=== PATIENT | female | born 1945 | race Caucasian/White ===

== ENCOUNTER 2016-09-08 09:28 | Emergency (ER) | payer MEDICARE, MEDICAID ==
[~2016-09-08 09:28] MED LIST: /PANT40TA; /PANT40TA OR; ALBU17IN2; ALBU17IN2 IN; ASPI325T OR; ASPI81TA83 OR; Albuterol Sulfate INH; CELE10TA OR; CIPR500T4; DEPA500T OR; FERR325T OR; FLAG500T; FLUC10TA OR; LABE100T2; LABE100T2 PO; LACT10SO8; LEVA250T; LEVA500T; LEVO25TABR; LISI10TA4 PO; Levothyroxine PO; MAALSUS PO; METO10TA2; MYCOSTATIN SS; NITROGLYCERIN SL; NITROSPRAY; NYSTATIN ORAL PO; OMEP20TA7 OR; OMEP20TA7 PO; POTASSIUM PO; PRIL20CA; PRIL40CA PO; QUESTRAN PO; SENN8.6T14; SIMV40TA2 PO; TEGR200T OR; TRAN100T OR; VICO5TAB; VICO5TAB OR; VICO5TAB PO; VITA50TA12 OR; ZANTAC; ZOCO40TA; nitroglycerin SL
[2016-09-08 10:17] LABS: BASO % 0.2 % (0.0-1.0); EOS # 0.2 K/mm3 (0.0-0.50); EOS % 3.8 % (0.0-3.0); LARGE UNSTAINED CELL # 0.1 K/mm3 (0.0-0.4); LARGE UNSTAINED CELL % 1.3 % (0.0-4.0); LYMPH # 0.5 K/mm3 (1.5-4.5); LYMPH % 11.9 % (24.0-44.0); MEAN CORPUSCULAR HEMOGLOBIN 32.5 pg (27.0-33.0); MEAN CORPUSCULAR HGB CONC 34.3 g/dl (32.0-36.5); MEAN CORPUSCULAR VOLUME 94.7 fl (80.0-96.0); MONO # 0.3 K/mm3 (0.0-0.8); MONO % 5.9 % (0.0-5.0); NEUTROPHILS # 3.2 K/mm3 (1.8-7.7); NEUTROPHILS % 76.9 % (36.0-66.0); PLATELET COUNT, AUTOMATED 205 k/mm3 (150-450); WHITE BLOOD COUNT 4.2 K/mm3 (4.0-10.0)
[2016-09-08 10:48] LABS: ANION GAP 10 MEQ/L (8-16); BLOOD UREA NITROGEN 7 MG/DL (7-18); CALCIUM LEVEL 8.2 MG/DL (8.8-10.2); CARBON DIOXIDE LEVEL 28 MEQ/L (21-32); CHLORIDE LEVEL 102 MEQ/L (98-107); CREATININE FOR GFR 0.95 MG/DL (0.55-1.02); GLOMERULAR FILTRATION RATE > 60.0 (>39); GLUCOSE, FASTING 107 MG/DL (83-110); POTASSIUM SERUM 3.5 MEQ/L (3.5-5.1); SODIUM LEVEL 140 MEQ/L (136-145)
--- NOTE | 2016-09-08 10:51 | REP ---
Chest two views HISTORY: Cough Comparison: 01/21/2015 The lungs are clear. The heart is normal in size. The pulmonary vasculature is normal in appearance. The bony structure is intact. IMPRESSION: No acute disease. Signed by Jose Antonio Carmona MD 09/08/2016 10:43 A
--- NOTE | 2016-09-08 15:13 | EDDOCDS ---
Physician Documentation [facility] Name: Codi Mcdermott Age: 71 yrs Sex: Female : 1945 Arrival Date: 09/08/2016 Time: 09:28 Bed 10 Private MD: Disposition: 09/08/16 13:53 Discharged to Home/Self Care. Impression: Chronic obstructive pulmonary disease with acute lower respiratory infection. - Condition is Stable. - Discharge Instructions: Acute Bronchitis, Chronic Obstructive Pulmonary Disease. - Prescriptions for Ceftin 500 mg Oral Tablet - take 1 tablet by ORAL route every 12 hours for 10 days; 20 tablet. Albuterol Sulfate 90 mcg/actuation Inhalation HFA Aerosol Inhaler - inhale 2 puff by INHALATION route every 4 hours As needed; 1 Inhaler. - Medication Reconciliation, Local Pharmacy Hours form. - Follow up: Private Physician; When: Cass Traore. - Problem is an acute exacerbation. - Symptoms have improved. Historical: - Allergies: Vioxx; IODINEIODINE CONTAINING; Lyrica; flu vaccine; Plaquenil; - Home Meds: 1. Keppra 500 mg Oral tab 1 tab 2 times per day 2. lisinopril 10 mg Oral tab 1 tab once daily 3. labetalol 100 mg Oral tab 0.5 tab 2 times per day 4. pantoprazole 40 mg oral TbEC 1 tab once daily 5. levothyroxine 25 mcg Oral tab 1 tab once daily 6. oxycodone-acetaminophen 5-325 mg Oral tab 1 tab every 4 hours for Pain 7. atorvastatin 40 mg oral tab 1 tab once daily 8. Lomotil 2.5-0.025 mg oral tab 2 tabs once daily PRN 9. albuterol sulfate 90 mcg/actuation Inhl HFAA PRN 10. Restasis 0.05 % ophthalmic dpet 1 drop 2 times per day 11. Nitrolingual 400 mcg/spray TL spra PRN - PMHx: sjogren's syndrome; Anemia; Arthritis; CAD; CancerCervical and Colon; Chronic kidney disease; Depression; GERD; hyperlipidemia; Hypothyroidism; [place]; Osteoporosis; Rheumatoid Arthritis; Sciatica; Seizures; - PSHx: Tonsillectomy; Bunion Surgery; Throat Surgery; Right Knee Surgery; Hysterectomy; Appendectomy; Kidney Surgery; - Social history: No barriers to communication noted, The patient speaks fluent Tajik, Speaks appropriately for age, Smoking status: Patient states was never smoker of tobacco. - Family history: Not pertinent. - : The pt / caregiver states he / she is not on anticoagulants. Home medication list is obtained from the patient, [employer] import data. - Exposure Risk Screening:: None identified. Vital Signs: 09/08 09:41 BP 124 / 74 (auto/); ck1 09:42 BP 124 / 74; Pulse 99; Resp 18; Temp 98.7(O); Pulse Ox 94% on R/A; Weight 59.87 kg / ck1 131.99 lbs (R); Height 5 ft. 4 in. (162.56 cm) (R); Pain 7/10; 09:42 Pulse 100 MON; Pulse Ox 93% ; ck1 09:57 BP 123 / 71 (auto/); ck1 09:57 Pulse 88 MON; Pulse Ox 97% ; ck1 10:11 Pulse 80 MON; Pulse Ox 99% ; ck1 10:12 BP 119 / 64 (auto/); ck1 10:27 BP 116 / 69 (auto/); ck1 10:27 Pulse 72 MON; Pulse Ox 100% ; ck1 10:39 Pulse 70 MON; Pulse Ox 99% ; rs3 10:57 BP 148 / 67 (auto/); ms18 10:57 Pulse 70 MON; Pulse Ox 99% ; ms18 11:12 BP 138 / 61 (auto/); ms18 11:12 Pulse 72 MON; Pulse Ox 98% ; ms18 11:27 BP 138 / 64 (auto/); ms18 11:27 Pulse 68 MON; Pulse Ox 98% ; ms18 11:42 BP 134 / 61 (auto/); ms18 11:42 Pulse 70 MON; Pulse Ox 97% ; ms18 11:57 BP 138 / 67 (auto/); ms18 11:57 Pulse 70 MON; Pulse Ox 97% ; ms18 12:12 BP 131 / 65 (auto/); ms18 12:12 Pulse 74 MON; Pulse Ox 98% ; ms18 12:27 BP 140 / 67 (auto/); ms18 12:27 Pulse 72 MON; Resp 18; Pulse Ox 98% ; ms18 12:42 BP 124 / 64 (auto/); rs3 12:42 Pulse 74 MON; Pulse Ox 98% ; rs3 12:57 BP 164 / 72 (auto/); rs3 12:57 Pulse 78 MON; Pulse Ox 94% ; rs3 13:12 BP 163 / 87 (auto/); rs3 13:12 Pulse 94 MON; Pulse Ox 96% ; rs3 13:27 BP 131 / 59 (auto/); rs3 13:27 Pulse 74 MON; Pulse Ox 95% ; rs3 13:42 Pulse 76 MON; Pulse Ox 95% ; rs3 13:57 BP 215 / 99 (auto/); rs3 14:23 BP 140 / 89 (auto/); rs3 14:23 Pulse 86 MON; Pulse Ox 94% ; rs3 14:27 BP 154 / 74 (auto/); rs3 14:27 Pulse 74 MON; Pulse Ox 97% ; rs3 14:42 BP 186 / 78 (auto/); rs3 14:42 Pulse 46 MON; Pulse Ox 95% ; rs3 14:57 BP 173 / 84 (auto/); rs3 14:57 BP 173 / 84; Pulse 82 MON; Resp 18; Temp 98(T); Pulse Ox 96% on R/A; Pain 0/10; rs3 09:42 Body Mass Index 22.66 (59.87 kg, 162.56 cm) ck1 MDM: 09:39 -Blood Culture (Adults Only), peripheral from different site, or from device/port/PICC sd1 etc. if present ordered. 09:39 Resource Conservation Manager/Pulse Ox/q 15 min VS ordered. sd1 09:39 IV Saline Lock ordered. sd1 09:39 Oxygen at 4L/Min NC or Home dosage ordered. sd1 09:39 Rhythm Strip to chart ordered. sd1 09:39 B-Type Natiuretic Peptide Ordered. EDMS 09:39 Basic Metabolic Profile Ordered. EDMS 09:39 CBC with Diff Ordered. EDMS 09:39 Cardiac Injury Profile Ordered. EDMS 09:39 Troponin Ordered. EDMS 09:39 -Blood Culture Ordered. EDMS 09:40 Chest, 2 View (pa\E\lat) Ordered. EDMS 09:40 ECG WITH READING ER PHYS+CARDIAG ordered. EDMS 09:40 Lactic Acid (Nicole tube on ice) Ordered. EDMS 09:41 NS 0.9% 1000 ml IV at 150 mL/hr continuous ordered. sd1 09:41 -Blood Culture (Adults Only), peripheral from different site, or from device/port/PICC deg etc. if present complete. 09:43 BLOOD CULTURES Ordered. EDMS 10:59 Financial registration complete. lg 12:09 Basic Metabolic Profile Reviewed. sd1 12:09 CBC with Diff Reviewed. sd1 12:09 B-Type Natiuretic Peptide Reviewed. sd1 12:09 Cardiac Injury Profile Reviewed. sd1 12:09 Troponin Reviewed. sd1 12:09 Lactic Acid (Nicole tube on ice) Reviewed. sd1 12:09 Chest, 2 View (pa\E\lat) Reviewed. sd1 12:49 Misc. Nursing Order ordered. sd1 12:49 REGULAR+DIET ordered. EDMS 15:11 T-Sheet-- Draft Copy was scanned into [employer] and attached to record. gb 15:11 ECG/EKG was scanned into [employer] and attached to record. gb Administered Medications: 10:11 Drug: NS 0.9% 1000 ml [sodium chloride 0.9 % intravenous solution] Route: IV; Rate: 150 ck1 mL/hr; Site: right antecubital; Signatures: Dispatcher [employer] EDNC Nahomy Swanson MD MD sd1 Yanira Dela Cruz, Electric Switch Repairer Unit deg Imelda Oviedo, Reg Reg gb Nitin Lang, Reg Reg Patricia Pool,RN RN ck1 Denice Velarde,RN RN rs3 The chart was reviewed and I authenticate all verbal orders and agree with the evaluation and treatment provided.Corrections: (The following items were deleted from the chart) 09:43 09:40 Home Meds: prednisone 5 mg Oral tab once daily; ck1 ck1 Attachments: 15:11 T-Sheet-- Draft Copy gb 15:11 ECG/EKG gb MTDD
--- NOTE | 2016-09-08 15:13 | EDDOCDS ---
Nurse's Notes [facility] Name: Codi Mcdermott Age: 71 yrs Sex: Female : 1945 Arrival Date: 09/08/2016 Time: 09:28 Bed 10 Private MD: Diagnosis: Chronic obstructive pulmonary disease with acute lower respiratory infection Presentation: 09/08 09:33 Presenting complaint: EMS states: Hot/cold, weakness ongoing for one week. No acute ck1 neurological deficit is noted. Pre-hospital glucose is not applicable to this patient. Suicide/Homicide risk assessment- the patient denies having any suicidal and/or homicidal ideations and does not present with any other emotional, behavioral or mental health complaints. Status: Patient is not a client sales and service officer or dependent. Transition of care: patient was not received from another setting of care. 09:33 Method Of Arrival: Ambulance ck1 09:33 Acuity: HERIBERTO Level 3 ck1 09:44 The last date and time the patient was known to be well was was at an unknown time on ck1 an unknown date. Adult Sepsis Screening: The patient does not have new or worsening altered mentation. Patient's respiratory rate is less than 22. Systolic blood pressure is greater than 100. Patient has a qSOFA score of 0- Negative Sepsis Screen. Triage Assessment: 09:43 The onset of the patients symptoms was more than three hours ago. General: Appears in ck1 no apparent distress, comfortable, Behavior is appropriate for age, cooperative. Pain: Location: throat Pain currently is 7 out of 10 on a pain scale. Neurological: Level of Consciousness is awake, alert, obeys commands, Oriented to person, place, time, Reports weakness. Cardiovascular: Chest pain is denied. Respiratory: Respiratory effort is unlabored, Respiratory pattern is regular, symmetrical. GI: No deficits noted. Derm: Skin is intact, is healthy with good turgor, Skin is pink, warm & dry. Musculoskeletal: Circulation, motion, and sensation intact Range of motion intact in all extremities. Historical: - Allergies: Vioxx; IODINEIODINE CONTAINING; Lyrica; flu vaccine; Plaquenil; - Home Meds: 1. Keppra 500 mg Oral tab 1 tab 2 times per day 2. lisinopril 10 mg Oral tab 1 tab once daily 3. labetalol 100 mg Oral tab 0.5 tab 2 times per day 4. pantoprazole 40 mg oral TbEC 1 tab once daily 5. levothyroxine 25 mcg Oral tab 1 tab once daily 6. oxycodone-acetaminophen 5-325 mg Oral tab 1 tab every 4 hours for Pain 7. atorvastatin 40 mg oral tab 1 tab once daily 8. Lomotil 2.5-0.025 mg oral tab 2 tabs once daily PRN 9. albuterol sulfate 90 mcg/actuation Inhl HFAA PRN 10. Restasis 0.05 % ophthalmic dpet 1 drop 2 times per day 11. Nitrolingual 400 mcg/spray TL spra PRN - PMHx: sjogren's syndrome; Anemia; Arthritis; CAD; CancerCervical and Colon; Chronic kidney disease; Depression; GERD; hyperlipidemia; Hypothyroidism; [place]; Osteoporosis; Rheumatoid Arthritis; Sciatica; Seizures; - PSHx: Tonsillectomy; Bunion Surgery; Throat Surgery; Right Knee Surgery; Hysterectomy; Appendectomy; Kidney Surgery; - Social history: No barriers to communication noted, The patient speaks fluent Moh[place], Speaks appropriately for age, Smoking status: Patient states was never smoker of tobacco. - Family history: Not pertinent. - : The pt / caregiver states he / she is not on anticoagulants. Home medication list is obtained from the patient, [employer] import data. - Exposure Risk Screening:: None identified. Screenin:43 Screening information is obtained from the patient. Fall risk: At risk due to weakness. ck1 Assistance ADL's: Requires assistance with housework, assistance is provided by Home Health Aides. Abuse/DV Screen: The patient / caregiver reports he/she is: not in a situation that causes fear, pain or injury. Nutritional screening: No deficits noted. Advance Directives: Currently, there is no health care proxy. home support is adequate. Assessment: 09:44 General: see triage note. ck1 11:15 General: Pt in no acute distress, lying on stretcher resting at this time. Will ms18 continue to monitor pt. 12:16 General: Appears in no apparent distress, comfortable, Behavior is appropriate for age, ms18 cooperative. Neurological: Level of Consciousness is awake, alert, obeys commands, Oriented to person, place, time. Respiratory: Airway is patent Respiratory effort is even, unlabored. GI: Abdomen is non- distended. Derm: Skin is pink, warm & dry. Pt c/o that her "skin" feels like it is "burning up", asked if she wanted to remove her blanket, pt refused and stated then she gets too cold. 13:35 General: Appears in no apparent distress, comfortable, Behavior is appropriate for age, ms18 cooperative. Neurological: Level of Consciousness is awake, alert, obeys commands, Oriented to person, place, time. Respiratory: Airway is patent Respiratory effort is even, unlabored. Derm: Skin is pink, warm & dry. 14:45 General: Appears in no apparent distress, comfortable, Behavior is appropriate for age, ms18 cooperative, Pt ambulated with no distress. Will continue to monitor pt. Respiratory: Airway is patent Respiratory effort is even, unlabored. Derm: Skin is pink, warm & dry. normal. Vital Signs: 09:41 BP 124 / 74 (auto/); ck1 09:42 BP 124 / 74; Pulse 99; Resp 18; Temp 98.7(O); Pulse Ox 94% on R/A; Weight 59.87 kg (R); ck1 Height 5 ft. 4 in. (162.56 cm) (R); Pain 7/10; 09:42 Pulse 100 MON; Pulse Ox 93% ; ck1 09:57 BP 123 / 71 (auto/); ck1 09:57 Pulse 88 MON; Pulse Ox 97% ; ck1 10:11 Pulse 80 MON; Pulse Ox 99% ; ck1 10:12 BP 119 / 64 (auto/); ck1 10:27 BP 116 / 69 (auto/); ck1 10:27 Pulse 72 MON; Pulse Ox 100% ; ck1 10:39 Pulse 70 MON; Pulse Ox 99% ; rs3 10:57 BP 148 / 67 (auto/); ms18 10:57 Pulse 70 MON; Pulse Ox 99% ; ms18 11:12 BP 138 / 61 (auto/); ms18 11:12 Pulse 72 MON; Pulse Ox 98% ; ms18 11:27 BP 138 / 64 (auto/); ms18 11:27 Pulse 68 MON; Pulse Ox 98% ; ms18 11:42 BP 134 / 61 (auto/); ms18 11:42 Pulse 70 MON; Pulse Ox 97% ; ms18 11:57 BP 138 / 67 (auto/); ms18 11:57 Pulse 70 MON; Pulse Ox 97% ; ms18 12:12 BP 131 / 65 (auto/); ms18 12:12 Pulse 74 MON; Pulse Ox 98% ; ms18 12:27 BP 140 / 67 (auto/); ms18 12:27 Pulse 72 MON; Resp 18; Pulse Ox 98% ; ms18 12:42 BP 124 / 64 (auto/); rs3 12:42 Pulse 74 MON; Pulse Ox 98% ; rs3 12:57 BP 164 / 72 (auto/); rs3 12:57 Pulse 78 MON; Pulse Ox 94% ; rs3 13:12 BP 163 / 87 (auto/); rs3 13:12 Pulse 94 MON; Pulse Ox 96% ; rs3 13:27 BP 131 / 59 (auto/); rs3 13:27 Pulse 74 MON; Pulse Ox 95% ; rs3 13:42 Pulse 76 MON; Pulse Ox 95% ; rs3 13:57 BP 215 / 99 (auto/); rs3 14:23 BP 140 / 89 (auto/); rs3 14:23 Pulse 86 MON; Pulse Ox 94% ; rs3 14:27 BP 154 / 74 (auto/); rs3 14:27 Pulse 74 MON; Pulse Ox 97% ; rs3 14:42 BP 186 / 78 (auto/); rs3 14:42 Pulse 46 MON; Pulse Ox 95% ; rs3 14:57 BP 173 / 84 (auto/); rs3 14:57 BP 173 / 84; Pulse 82 MON; Resp 18; Temp 98(T); Pulse Ox 96% on R/A; Pain 0/10; rs3 09:42 Body Mass Index 22.66 (59.87 kg, 162.56 cm) ck1 Vitals: 09:42 Glucose Measurement D-stick deferred by provider. Log In Time N/A - ambulance arrival. ck1 ED Course: 09:29 Patient visited by Yanira Dela Cruz, Brake Repairer Air. deg 09:29 Patient moved to Waiting deg 09:30 Estella Cruz,RN is Primary Nurse. deg 09:30 Patricia Gee,ILEANA is Primary Nurse. deg 09:30 Patient moved to 10 deg 09:33 Nahomy Swanson MD is Attending Physician. sd1 09:33 Patient visited by Nahomy Swanson MD. sd1 09:36 Triage Initiated ck1 09:44 The patient / caregiver is instructed regarding the plan of care and ED course. ck1 10:07 EKG done. (by ED staff). Reviewed by Nahomy Swanson MD. rn1 10:11 Patient visited by Patricia Gee,ILEANA. ck1 10:11 Lactic Acid (Nicole tube on ice) Sent. ck1 10:11 -Blood Culture Sent. ck1 10:11 B-Type Natiuretic Peptide Sent. ck1 10:11 Basic Metabolic Profile Sent. ck1 10:11 CBC with Diff Sent. ck1 10:11 Cardiac Injury Profile Sent. ck1 10:11 Troponin Sent. ck1 10:12 Inserted saline lock: 20 gauge in right antecubital area and blood collected. The ck1 patient tolerated the procedure well. 10:18 Patient visited by Patricia Gee RN. ck1 10:18 BLOOD CULTURES Sent. ck1 10:52 Patient visited by Patricia Gee RN. ck1 11:19 Chest, 2 View (pa\\E\\lat) Returned. EDMS 11:30 Patient visited by Luis Underwood PCA. jlf 12:16 Patient visited by Isabel Cruz RN. ms18 13:18 Patient visited by Isabel Cruz RN. ms18 15:11 T-Sheet-- Draft Copy was scanned into [employer] and attached to record. gb 15:11 ECG/EKG was scanned into [employer] and attached to record. gb 15:12 No procedures done that require assistance. rs3 Administered Medications: 10:11 Drug: NS 0.9% 1000 ml [sodium chloride 0.9 % intravenous solution] Route: IV; Rate: 150 ck1 mL/hr; Site: right antecubital; Order Results: Lab Order: B-Type Natiuretic Peptide; SPEC'M 09/08/16 10:09 Test: BRAIN NATRIURETIC PEPTIDE; Value: 21.7; Range: <100; Units: PG/ML; Status: F Lab Order: Basic Metabolic Profile; SPEC'M 09/08/16 10:09 Test: GLUCOSE, FASTING; Value: 107; Range: 83-110; Units: MG/DL; Status: F Test: BLOOD UREA NITROGEN; Value: 7; Range: 7-18; Units: MG/DL; Status: F Test: CREATININE FOR GFR; Value: 0.95; Range: 0.55-1.02; Units: MG/DL; Status: F Test: GLOMERULAR FILTRATION RATE; Value: > 60.0; Range: >39; Status: F Test: SODIUM LEVEL; Value: 140; Range: 136-145; Units: MEQ/L; Status: F Test: POTASSIUM SERUM; Value: 3.5; Range: 3.5-5.1; Units: MEQ/L; Status: F Test: CHLORIDE LEVEL; Value: 102; Range: 98-107; Units: MEQ/L; Status: F Test: CARBON DIOXIDE LEVEL; Value: 28; Range: 21-32; Units: MEQ/L; Status: F Test: ANION GAP; Value: 10; Range: 8-16; Units: MEQ/L; Status: F Test: CALCIUM LEVEL; Value: 8.2; Range: 8.8-10.2; Abnormal: Below low normal; Units: MG/DL; Status: F Test Note: ; Units are mL/min/1.73 m2 Chronic Kidney Disease Staging per NKF: Stage I & II GFR >=60 Normal to Mildly Decreased Stage III GFR 30-59 Moderately Decreased Stage IV GFR 15-29 Severely Decreased Stage V GFR <15 Very Little GFR Left ESRD GFR <15 on GAMEWELL OPERATOR Lab Order: CBC with Diff; SPEC'M 09/08/16 10:09 Test: WHITE BLOOD COUNT; Value: 4.2; Range: 4.0-10.0; Units: K/mm3; Status: F Test: RED BLOOD COUNT; Value: 3.53; Range: 4.00-5.40; Abnormal: Below low normal; Units: M/mm3; Status: F Test: HEMOGLOBIN; Value: 11.5; Range: 12.0-16.0; Abnormal: Below low normal; Units: g/dl; Status: F Test: HEMATOCRIT; Value: 33.5; Range: 36.0-47.0; Abnormal: Below low normal; Units: %; Status: F Test: MEAN CORPUSCULAR VOLUME; Value: 94.7; Range: 80.0-96.0; Units: fl; Status: F Test: MEAN CORPUSCULAR HEMOGLOBIN; Value: 32.5; Range: 27.0-33.0; Units: pg; Status: F Test: MEAN CORPUSCULAR HGB CONC; Value: 34.3; Range: 32.0-36.5; Units: g/dl; Status: F Test: RED CELL DISTRIBUTION WIDTH; Value: 12.0; Range: 11.5-14.5; Units: %; Status: F Test: PLATELET COUNT, AUTOMATED; Value: 205; Range: 150-450; Units: k/mm3; Status: F Test: NEUTROPHILS %; Value: 76.9; Range: 36.0-66.0; Abnormal: Above high normal; Units: %; Status: F Test: LYMPH %; Value: 11.9; Range: 24.0-44.0; Abnormal: Below low normal; Units: %; Status: F Test: MONO %; Value: 5.9; Range: 0.0-5.0; Abnormal: Above high normal; Units: %; Status: F Test: EOS %; Value: 3.8; Range: 0.0-3.0; Abnormal: Above high normal; Units: %; Status: F Test: BASO %; Value: 0.2; Range: 0.0-1.0; Units: %; Status: F Test: LARGE UNSTAINED CELL %; Value: 1.3; Range: 0.0-4.0; Units: %; Status: F Test: NEUTROPHILS #; Value: 3.2; Range: 1.8-7.7; Units: K/mm3; Status: F Test: LYMPH #; Value: 0.5; Range: 1.5-4.5; Abnormal: Below low normal; Units: K/mm3; Status: F Test: MONO #; Value: 0.3; Range: 0.0-0.8; Units: K/mm3; Status: F Test: EOS #; Value: 0.2; Range: 0.0-0.50; Units: K/mm3; Status: F Test: BASO #; Value: 0.0; Range: 0.0-0.2; Units: K/mm3; Status: F Test: LARGE UNSTAINED CELL #; Value: 0.1; Range: 0.0-0.4; Units: K/mm3; Status: F Lab Order: Cardiac Injury Profile; SPEC'M 09/08/16 10:09 Test: CPK CREATINE PHOSPHOKINASE; Value: 96; Range: 26-192; Units: U/L; Status: F Test: CK-MB VALUE MASS; Value: 2.2; Range: 0.0-3.6; Units: NG/ML; Status: F Test: MB/CK RELATIVE INDEX; Value: 2.29; Range: < OR =4; Status: F Test Note: ; DIAGNOSIS CRITERIA MMB ng/ml Relative Index (RI) NON-AMI < or = 5 N/A NICOLE ZONE > 5 < or = 4 AMI > 5 > 4 Lab Order: Troponin; SPEC'M 09/08/16 10:09 Test: TROPONIN I; Value: < 0.02; Range: < 0.10; Units: NG/ML; Status: F Test Note: ; Troponin I Reference Interval for Phloronol LOCI: 99th Percentile= 0.00-0.045 ng/ml Risk Stratification: <= 0.10 ng/ml Decreased Risk for Adverse Clinical Events. 0.10-1.50 ng/ml Increased Risk for Adverse Clinical Events. Evaluation of additional criterion and/or repeat testing in 2-6 hours is suggested to rule out myocardial damage. >= 1.50 ng/ml Indicative of Myocardial Injury. Lab Order: Lactic Acid (Nicole tube on ice); SPEC'M 09/08/16 10:09 Test: LACTIC ACID LEVEL, LACTATE; Value: 1.0; Range: 0.4-2.0; Units: MMOL/L; Status: F Radiology Order: Chest, 2 View (pa\\E\\lat) Test: Chest, 2 View (pa\\E\\lat) REASON FOR EXAMINATION: productive cough; Chest two views; ; HISTORY: Cough; ; Comparison: 01/21/2015; ; The lungs are clear. The heart is normal in size. The pulmonary vasculature is; normal in appearance. The bony structure is intact.; ; IMPRESSION: No acute disease.; ; ; Signed by; Jose Antonio Carmona MD 09/08/2016 10:43 A; Outcome: 13:53 Discharge ordered by Provider. sd1 15:11 Discharge Assessment: patient administered narcotics - no. The following High Risk rs3 Discharge criteria are identified: None. Discharged to home with family. Condition: stable. Discharge instructions given to patient, Instructed on discharge instructions, follow up and referral plans. medication usage, Demonstrated understanding of instructions, medications, Pt was receptive of discharge instructions/ teaching. No special radiology studies were completed. Property :Personal belongings accompany Pt. 15:12 Patient left the ED. rs3 Signatures: Dispatcher [employer] EDMS Nahomy Swanson MD MD sd1 Yanira Dela Cruz, Brake Repairer Air Unit deg Imelda Oviedo, Reg Reg gb Patricia Gee,RN RN ck1 Denice VelardeRN RN rs3 Luis Underwood, BASIM PRODUCTION SORTER Isabel Phelan RN RN ms18 Rich Maradiaga rn1 Corrections: (The following items were deleted from the chart) 09:43 09:40 Home Meds: prednisone 5 mg Oral tab once daily; ck1 ck1 MTDD
--- NOTE | 2016-09-08 21:11 | ECGEPIP ---
Stationary ECG Study [facility] - ED Test Date: 2016-09-08 Pat Name: AYAKA LUCIO Department: Room: - Gender: F [employer] Room Attendant: sheldon : 1945 Requested By: Nahomy Swanson Order Number: [id number] Reading MD: Ryan Mann Measurements Intervals [place] Rate: 74 P: 68 MT: 136 QRS: 32 QRSD: 88 T: 79 QT: 379 QTc: 422 Interpretive Statements SINUS RHYTHM [id number] ABNORMALITIES Electronically Signed On 09-08-2016 21:10:57 EST by Ryan Mann
--- NOTE | 2016-09-10 16:13 | EDDOCDS ---
Physician Documentation [facility] Name: Codi Mcdermott Age: 71 yrs Sex: Female : 1945 Arrival Date: 09/08/2016 Time: 09:28 Bed 10 Private MD: Disposition: 09/08/16 13:53 Discharged to Home/Self Care. Impression: Chronic obstructive pulmonary disease with acute lower respiratory infection. - Condition is Stable. - Discharge Instructions: Acute Bronchitis, Chronic Obstructive Pulmonary Disease. - Prescriptions for Ceftin 500 mg Oral Tablet - take 1 tablet by ORAL route every 12 hours for 10 days; 20 tablet. Albuterol Sulfate 90 mcg/actuation Inhalation HFA Aerosol Inhaler - inhale 2 puff by INHALATION route every 4 hours As needed; 1 Inhaler. - Medication Reconciliation, Local Pharmacy Hours form. - Follow up: Private Physician; When: Cass Traore. - Problem is an acute exacerbation. - Symptoms have improved. Historical: - Allergies: Vioxx; IODINEIODINE CONTAINING; Lyrica; flu vaccine; Plaquenil; - Home Meds: 1. Keppra 500 mg Oral tab 1 tab 2 times per day 2. lisinopril 10 mg Oral tab 1 tab once daily 3. labetalol 100 mg Oral tab 0.5 tab 2 times per day 4. pantoprazole 40 mg oral TbEC 1 tab once daily 5. levothyroxine 25 mcg Oral tab 1 tab once daily 6. oxycodone-acetaminophen 5-325 mg Oral tab 1 tab every 4 hours for Pain 7. atorvastatin 40 mg oral tab 1 tab once daily 8. Lomotil 2.5-0.025 mg oral tab 2 tabs once daily PRN 9. albuterol sulfate 90 mcg/actuation Inhl HFAA PRN 10. Restasis 0.05 % ophthalmic dpet 1 drop 2 times per day 11. Nitrolingual 400 mcg/spray TL spra PRN - PMHx: sjogren's syndrome; Anemia; Arthritis; CAD; CancerCervical and Colon; Chronic kidney disease; Depression; GERD; hyperlipidemia; Hypothyroidism; RI; Osteoporosis; Rheumatoid Arthritis; Sciatica; Seizures; - PSHx: Tonsillectomy; Bunion Surgery; Throat Surgery; Right Knee Surgery; Hysterectomy; Appendectomy; Kidney Surgery; - Social history: No barriers to communication noted, The patient speaks fluent Estonian, Speaks appropriately for age, Smoking status: Patient states was never smoker of tobacco. - Family history: Not pertinent. - : The pt / caregiver states he / she is not on anticoagulants. Home medication list is obtained from the patient, [employer] import data. - Exposure Risk Screening:: None identified. Vital Signs: 09/08 09:41 BP 124 / 74 (auto/); ck1 09:42 BP 124 / 74; Pulse 99; Resp 18; Temp 98.7(O); Pulse Ox 94% on R/A; Weight 59.87 kg / ck1 131.99 lbs (R); Height 5 ft. 4 in. (162.56 cm) (R); Pain 7/10; 09:42 Pulse 100 MON; Pulse Ox 93% ; ck1 09:57 BP 123 / 71 (auto/); ck1 09:57 Pulse 88 MON; Pulse Ox 97% ; ck1 10:11 Pulse 80 MON; Pulse Ox 99% ; ck1 10:12 BP 119 / 64 (auto/); ck1 10:27 BP 116 / 69 (auto/); ck1 10:27 Pulse 72 MON; Pulse Ox 100% ; ck1 10:39 Pulse 70 MON; Pulse Ox 99% ; rs3 10:57 BP 148 / 67 (auto/); ms18 10:57 Pulse 70 MON; Pulse Ox 99% ; ms18 11:12 BP 138 / 61 (auto/); ms18 11:12 Pulse 72 MON; Pulse Ox 98% ; ms18 11:27 BP 138 / 64 (auto/); ms18 11:27 Pulse 68 MON; Pulse Ox 98% ; ms18 11:42 BP 134 / 61 (auto/); ms18 11:42 Pulse 70 MON; Pulse Ox 97% ; ms18 11:57 BP 138 / 67 (auto/); ms18 11:57 Pulse 70 MON; Pulse Ox 97% ; ms18 12:12 BP 131 / 65 (auto/); ms18 12:12 Pulse 74 MON; Pulse Ox 98% ; ms18 12:27 BP 140 / 67 (auto/); ms18 12:27 Pulse 72 MON; Resp 18; Pulse Ox 98% ; ms18 12:42 BP 124 / 64 (auto/); rs3 12:42 Pulse 74 MON; Pulse Ox 98% ; rs3 12:57 BP 164 / 72 (auto/); rs3 12:57 Pulse 78 MON; Pulse Ox 94% ; rs3 13:12 BP 163 / 87 (auto/); rs3 13:12 Pulse 94 MON; Pulse Ox 96% ; rs3 13:27 BP 131 / 59 (auto/); rs3 13:27 Pulse 74 MON; Pulse Ox 95% ; rs3 13:42 Pulse 76 MON; Pulse Ox 95% ; rs3 13:57 BP 215 / 99 (auto/); rs3 14:23 BP 140 / 89 (auto/); rs3 14:23 Pulse 86 MON; Pulse Ox 94% ; rs3 14:27 BP 154 / 74 (auto/); rs3 14:27 Pulse 74 MON; Pulse Ox 97% ; rs3 14:42 BP 186 / 78 (auto/); rs3 14:42 Pulse 46 MON; Pulse Ox 95% ; rs3 14:57 BP 173 / 84 (auto/); rs3 14:57 BP 173 / 84; Pulse 82 MON; Resp 18; Temp 98(T); Pulse Ox 96% on R/A; Pain 0/10; rs3 09:42 Body Mass Index 22.66 (59.87 kg, 162.56 cm) ck1 MDM: 09:39 -Blood Culture (Adults Only), peripheral from different site, or from device/port/PICC sd1 etc. if present ordered. 09:39 Parts Administrator/Pulse Ox/q 15 min VS ordered. sd1 09:39 IV Saline Lock ordered. sd1 09:39 Oxygen at 4L/Min NC or Home dosage ordered. sd1 09:39 Rhythm Strip to chart ordered. sd1 09:39 B-Type Natiuretic Peptide Ordered. EDMS 09:39 Basic Metabolic Profile Ordered. EDMS 09:39 CBC with Diff Ordered. EDMS 09:39 Cardiac Injury Profile Ordered. EDMS 09:39 Troponin Ordered. EDMS 09:39 -Blood Culture Ordered. EDMS 09:40 Chest, 2 View (pa\E\lat) Ordered. EDMS 09:40 ECG WITH READING ER PHYS+CARDIAG ordered. EDMS 09:40 Lactic Acid (Nicole tube on ice) Ordered. EDMS 09:41 NS 0.9% 1000 ml IV at 150 mL/hr continuous ordered. sd1 09:41 -Blood Culture (Adults Only), peripheral from different site, or from device/port/PICC deg etc. if present complete. 09:43 BLOOD CULTURES Ordered. EDMS 10:59 Financial registration complete. lg 12:09 Basic Metabolic Profile Reviewed. sd1 12:09 CBC with Diff Reviewed. sd1 12:09 B-Type Natiuretic Peptide Reviewed. sd1 12:09 Cardiac Injury Profile Reviewed. sd1 12:09 Troponin Reviewed. sd1 12:09 Lactic Acid (Nicole tube on ice) Reviewed. sd1 12:09 Chest, 2 View (pa\E\lat) Reviewed. sd1 12:49 Misc. Nursing Order ordered. sd1 12:49 REGULAR+DIET ordered. EDMS 15:11 T-Sheet-- Draft Copy was scanned into [employer] and attached to record. gb 15:11 ECG/EKG was scanned into [employer] and attached to record. gb Administered Medications: 10:11 Drug: NS 0.9% 1000 ml [sodium chloride 0.9 % intravenous solution] Route: IV; Rate: 150 ck1 mL/hr; Site: right antecubital; Signatures: Dispatcher [employer] EDNH Nahomy Swanson MD MD sd1 Yanira Dela Cruz, Drying Can Worker Unit deg Imelda Oviedo, Reg Reg gb Nitin Lang, Reg Reg Patricia Pool,RN RN ck1 Denice Velarde,RN RN rs3 The chart was reviewed and I authenticate all verbal orders and agree with the evaluation and treatment provided.Corrections: (The following items were deleted from the chart) 09:43 09:40 Home Meds: prednisone 5 mg Oral tab once daily; ck1 ck1 Attachments: 15:11 T-Sheet-- Draft Copy gb 15:11 ECG/EKG gb Chart Complete MTDD
--- NOTE | 2016-09-10 16:13 | EDDOCDS ---
Nurse's Notes [facility] Name: Codi Mcdermott Age: 71 yrs Sex: Female : 1945 Arrival Date: 09/08/2016 Time: 09:28 Bed 10 Private MD: Diagnosis: Chronic obstructive pulmonary disease with acute lower respiratory infection Presentation: 09/08 09:33 Presenting complaint: EMS states: Hot/cold, weakness ongoing for one week. No acute ck1 neurological deficit is noted. Pre-hospital glucose is not applicable to this patient. Suicide/Homicide risk assessment- the patient denies having any suicidal and/or homicidal ideations and does not present with any other emotional, behavioral or mental health complaints. Status: Patient is not a business services officer or dependent. Transition of care: patient was not received from another setting of care. 09:33 Method Of Arrival: Ambulance ck1 09:33 Acuity: HERIBERTO Level 3 ck1 09:44 The last date and time the patient was known to be well was was at an unknown time on ck1 an unknown date. Adult Sepsis Screening: The patient does not have new or worsening altered mentation. Patient's respiratory rate is less than 22. Systolic blood pressure is greater than 100. Patient has a qSOFA score of 0- Negative Sepsis Screen. Triage Assessment: 09:43 The onset of the patients symptoms was more than three hours ago. General: Appears in ck1 no apparent distress, comfortable, Behavior is appropriate for age, cooperative. Pain: Location: throat Pain currently is 7 out of 10 on a pain scale. Neurological: Level of Consciousness is awake, alert, obeys commands, Oriented to person, place, time, Reports weakness. Cardiovascular: Chest pain is denied. Respiratory: Respiratory effort is unlabored, Respiratory pattern is regular, symmetrical. GI: No deficits noted. Derm: Skin is intact, is healthy with good turgor, Skin is pink, warm & dry. Musculoskeletal: Circulation, motion, and sensation intact Range of motion intact in all extremities. Historical: - Allergies: Vioxx; IODINEIODINE CONTAINING; Lyrica; flu vaccine; Plaquenil; - Home Meds: 1. Keppra 500 mg Oral tab 1 tab 2 times per day 2. lisinopril 10 mg Oral tab 1 tab once daily 3. labetalol 100 mg Oral tab 0.5 tab 2 times per day 4. pantoprazole 40 mg oral TbEC 1 tab once daily 5. levothyroxine 25 mcg Oral tab 1 tab once daily 6. oxycodone-acetaminophen 5-325 mg Oral tab 1 tab every 4 hours for Pain 7. atorvastatin 40 mg oral tab 1 tab once daily 8. Lomotil 2.5-0.025 mg oral tab 2 tabs once daily PRN 9. albuterol sulfate 90 mcg/actuation Inhl HFAA PRN 10. Restasis 0.05 % ophthalmic dpet 1 drop 2 times per day 11. Nitrolingual 400 mcg/spray TL spra PRN - PMHx: sjogren's syndrome; Anemia; Arthritis; CAD; CancerCervical and Colon; Chronic kidney disease; Depression; GERD; hyperlipidemia; Hypothyroidism; [place]; Osteoporosis; Rheumatoid Arthritis; Sciatica; Seizures; - PSHx: Tonsillectomy; Bunion Surgery; Throat Surgery; Right Knee Surgery; Hysterectomy; Appendectomy; Kidney Surgery; - Social history: No barriers to communication noted, The patient speaks fluent Frisian, Speaks appropriately for age, Smoking status: Patient states was never smoker of tobacco. - Family history: Not pertinent. - : The pt / caregiver states he / she is not on anticoagulants. Home medication list is obtained from the patient, [employer] import data. - Exposure Risk Screening:: None identified. Screenin:43 Screening information is obtained from the patient. Fall risk: At risk due to weakness. ck1 Assistance ADL's: Requires assistance with housework, assistance is provided by Home Health Aides. Abuse/DV Screen: The patient / caregiver reports he/she is: not in a situation that causes fear, pain or injury. Nutritional screening: No deficits noted. Advance Directives: Currently, there is no health care proxy. home support is adequate. Assessment: 09:44 General: see triage note. ck1 11:15 General: Pt in no acute distress, lying on stretcher resting at this time. Will ms18 continue to monitor pt. 12:16 General: Appears in no apparent distress, comfortable, Behavior is appropriate for age, ms18 cooperative. Neurological: Level of Consciousness is awake, alert, obeys commands, Oriented to person, place, time. Respiratory: Airway is patent Respiratory effort is even, unlabored. GI: Abdomen is non- distended. Derm: Skin is pink, warm & dry. Pt c/o that her "skin" feels like it is "burning up", asked if she wanted to remove her blanket, pt refused and stated then she gets too cold. 13:35 General: Appears in no apparent distress, comfortable, Behavior is appropriate for age, ms18 cooperative. Neurological: Level of Consciousness is awake, alert, obeys commands, Oriented to person, place, time. Respiratory: Airway is patent Respiratory effort is even, unlabored. Derm: Skin is pink, warm & dry. 14:45 General: Appears in no apparent distress, comfortable, Behavior is appropriate for age, ms18 cooperative, Pt ambulated with no distress. Will continue to monitor pt. Respiratory: Airway is patent Respiratory effort is even, unlabored. Derm: Skin is pink, warm & dry. normal. Vital Signs: 09:41 BP 124 / 74 (auto/); ck1 09:42 BP 124 / 74; Pulse 99; Resp 18; Temp 98.7(O); Pulse Ox 94% on R/A; Weight 59.87 kg (R); ck1 Height 5 ft. 4 in. (162.56 cm) (R); Pain 7/10; 09:42 Pulse 100 MON; Pulse Ox 93% ; ck1 09:57 BP 123 / 71 (auto/); ck1 09:57 Pulse 88 MON; Pulse Ox 97% ; ck1 10:11 Pulse 80 MON; Pulse Ox 99% ; ck1 10:12 BP 119 / 64 (auto/); ck1 10:27 BP 116 / 69 (auto/); ck1 10:27 Pulse 72 MON; Pulse Ox 100% ; ck1 10:39 Pulse 70 MON; Pulse Ox 99% ; rs3 10:57 BP 148 / 67 (auto/); ms18 10:57 Pulse 70 MON; Pulse Ox 99% ; ms18 11:12 BP 138 / 61 (auto/); ms18 11:12 Pulse 72 MON; Pulse Ox 98% ; ms18 11:27 BP 138 / 64 (auto/); ms18 11:27 Pulse 68 MON; Pulse Ox 98% ; ms18 11:42 BP 134 / 61 (auto/); ms18 11:42 Pulse 70 MON; Pulse Ox 97% ; ms18 11:57 BP 138 / 67 (auto/); ms18 11:57 Pulse 70 MON; Pulse Ox 97% ; ms18 12:12 BP 131 / 65 (auto/); ms18 12:12 Pulse 74 MON; Pulse Ox 98% ; ms18 12:27 BP 140 / 67 (auto/); ms18 12:27 Pulse 72 MON; Resp 18; Pulse Ox 98% ; ms18 12:42 BP 124 / 64 (auto/); rs3 12:42 Pulse 74 MON; Pulse Ox 98% ; rs3 12:57 BP 164 / 72 (auto/); rs3 12:57 Pulse 78 MON; Pulse Ox 94% ; rs3 13:12 BP 163 / 87 (auto/); rs3 13:12 Pulse 94 MON; Pulse Ox 96% ; rs3 13:27 BP 131 / 59 (auto/); rs3 13:27 Pulse 74 MON; Pulse Ox 95% ; rs3 13:42 Pulse 76 MON; Pulse Ox 95% ; rs3 13:57 BP 215 / 99 (auto/); rs3 14:23 BP 140 / 89 (auto/); rs3 14:23 Pulse 86 MON; Pulse Ox 94% ; rs3 14:27 BP 154 / 74 (auto/); rs3 14:27 Pulse 74 MON; Pulse Ox 97% ; rs3 14:42 BP 186 / 78 (auto/); rs3 14:42 Pulse 46 MON; Pulse Ox 95% ; rs3 14:57 BP 173 / 84 (auto/); rs3 14:57 BP 173 / 84; Pulse 82 MON; Resp 18; Temp 98(T); Pulse Ox 96% on R/A; Pain 0/10; rs3 09:42 Body Mass Index 22.66 (59.87 kg, 162.56 cm) ck1 Vitals: 09:42 Glucose Measurement D-stick deferred by provider. Log In Time N/A - ambulance arrival. ck1 ED Course: 09:29 Patient visited by Yanira Dela Cruz, Fixed Route Bus Operator. deg 09:29 Patient moved to Waiting deg 09:30 Estella Cruz,RN is Primary Nurse. deg 09:30 Patricia Gee,ILEANA is Primary Nurse. deg 09:30 Patient moved to 10 deg 09:33 Nahomy Swanson MD is Attending Physician. sd1 09:33 Patient visited by Nahomy Swanson MD. sd1 09:36 Triage Initiated ck1 09:44 The patient / caregiver is instructed regarding the plan of care and ED course. ck1 10:07 EKG done. (by ED staff). Reviewed by Nahomy Swanson MD. rn1 10:11 Patient visited by Patricia Gee,ILEANA. ck1 10:11 Lactic Acid (Nicole tube on ice) Sent. ck1 10:11 -Blood Culture Sent. ck1 10:11 B-Type Natiuretic Peptide Sent. ck1 10:11 Basic Metabolic Profile Sent. ck1 10:11 CBC with Diff Sent. ck1 10:11 Cardiac Injury Profile Sent. ck1 10:11 Troponin Sent. ck1 10:12 Inserted saline lock: 20 gauge in right antecubital area and blood collected. The ck1 patient tolerated the procedure well. 10:18 Patient visited by Patricia Gee RN. ck1 10:18 BLOOD CULTURES Sent. ck1 10:52 Patient visited by Patricia Gee RN. ck1 11:19 Chest, 2 View (pa\\E\\lat) Returned. EDMS 11:30 Patient visited by Luis Underwood PCA. jlf 12:16 Patient visited by Isabel Cruz RN. ms18 13:18 Patient visited by Isabel Cruz RN. ms18 15:11 T-Sheet-- Draft Copy was scanned into [employer] and attached to record. gb 15:11 ECG/EKG was scanned into [employer] and attached to record. gb 15:12 No procedures done that require assistance. rs3 21:58 EKG-ADULT Returned. EDMS Administered Medications: 10:11 Drug: NS 0.9% 1000 ml [sodium chloride 0.9 % intravenous solution] Route: IV; Rate: 150 ck1 mL/hr; Site: right antecubital; Order Results: Lab Order: -Blood Culture; SPEC'M 09/08/16 10:09 Test: BLOOD CULTURE; Value: No growth after 24 hours . All specimens observed; Status: F Test: BLOOD CULTURE; Value: for 5 days. Results final at that time.; Status: F Test: BLOOD CULTURE; Value: No Growth after 48 hours. All Specimens observed; Status: F Test: BLOOD CULTURE; Value: for 7 days. Results final at that time.; Status: F Lab Order: B-Type Natiuretic Peptide; SPEC'09/08/16 10:09 Test: BRAIN NATRIURETIC PEPTIDE; Value: 21.7; Range: <100; Units: PG/ML; Status: F Lab Order: Basic Metabolic Profile; SPEC'09/08/16 10:09 Test: GLUCOSE, FASTING; Value: 107; Range: 83-110; Units: MG/DL; Status: F Test: BLOOD UREA NITROGEN; Value: 7; Range: 7-18; Units: MG/DL; Status: F Test: CREATININE FOR GFR; Value: 0.95; Range: 0.55-1.02; Units: MG/DL; Status: F Test: GLOMERULAR FILTRATION RATE; Value: > 60.0; Range: >39; Status: F Test: SODIUM LEVEL; Value: 140; Range: 136-145; Units: MEQ/L; Status: F Test: POTASSIUM SERUM; Value: 3.5; Range: 3.5-5.1; Units: MEQ/L; Status: F Test: CHLORIDE LEVEL; Value: 102; Range: 98-107; Units: MEQ/L; Status: F Test: CARBON DIOXIDE LEVEL; Value: 28; Range: 21-32; Units: MEQ/L; Status: F Test: ANION GAP; Value: 10; Range: 8-16; Units: MEQ/L; Status: F Test: CALCIUM LEVEL; Value: 8.2; Range: 8.8-10.2; Abnormal: Below low normal; Units: MG/DL; Status: F Test Note: ; Units are mL/min/1.73 m2 Chronic Kidney Disease Staging per NKF: Stage I & II GFR >=60 Normal to Mildly Decreased Stage III GFR 30-59 Moderately Decreased Stage IV GFR 15-29 Severely Decreased Stage V GFR <15 Very Little GFR Left ESRD GFR <15 on DATA PROCESSING CLERK Lab Order: CBC with Diff; SPEC09/08/16 10:09 Test: WHITE BLOOD COUNT; Value: 4.2; Range: 4.0-10.0; Units: K/mm3; Status: F Test: RED BLOOD COUNT; Value: 3.53; Range: 4.00-5.40; Abnormal: Below low normal; Units: M/mm3; Status: F Test: HEMOGLOBIN; Value: 11.5; Range: 12.0-16.0; Abnormal: Below low normal; Units: g/dl; Status: F Test: HEMATOCRIT; Value: 33.5; Range: 36.0-47.0; Abnormal: Below low normal; Units: %; Status: F Test: MEAN CORPUSCULAR VOLUME; Value: 94.7; Range: 80.0-96.0; Units: fl; Status: F Test: MEAN CORPUSCULAR HEMOGLOBIN; Value: 32.5; Range: 27.0-33.0; Units: pg; Status: F Test: MEAN CORPUSCULAR HGB CONC; Value: 34.3; Range: 32.0-36.5; Units: g/dl; Status: F Test: RED CELL DISTRIBUTION WIDTH; Value: 12.0; Range: 11.5-14.5; Units: %; Status: F Test: PLATELET COUNT, AUTOMATED; Value: 205; Range: 150-450; Units: k/mm3; Status: F Test: NEUTROPHILS %; Value: 76.9; Range: 36.0-66.0; Abnormal: Above high normal; Units: %; Status: F Test: LYMPH %; Value: 11.9; Range: 24.0-44.0; Abnormal: Below low normal; Units: %; Status: F Test: MONO %; Value: 5.9; Range: 0.0-5.0; Abnormal: Above high normal; Units: %; Status: F Test: EOS %; Value: 3.8; Range: 0.0-3.0; Abnormal: Above high normal; Units: %; Status: F Test: BASO %; Value: 0.2; Range: 0.0-1.0; Units: %; Status: F Test: LARGE UNSTAINED CELL %; Value: 1.3; Range: 0.0-4.0; Units: %; Status: F Test: NEUTROPHILS #; Value: 3.2; Range: 1.8-7.7; Units: K/mm3; Status: F Test: LYMPH #; Value: 0.5; Range: 1.5-4.5; Abnormal: Below low normal; Units: K/mm3; Status: F Test: MONO #; Value: 0.3; Range: 0.0-0.8; Units: K/mm3; Status: F Test: EOS #; Value: 0.2; Range: 0.0-0.50; Units: K/mm3; Status: F Test: BASO #; Value: 0.0; Range: 0.0-0.2; Units: K/mm3; Status: F Test: LARGE UNSTAINED CELL #; Value: 0.1; Range: 0.0-0.4; Units: K/mm3; Status: F Lab Order: Cardiac Injury Profile; SPEC' 09/08/16 10:09 Test: CPK CREATINE PHOSPHOKINASE; Value: 96; Range: 26-192; Units: U/L; Status: F Test: CK-MB VALUE MASS; Value: 2.2; Range: 0.0-3.6; Units: NG/ML; Status: F Test: MB/CK RELATIVE INDEX; Value: 2.29; Range: < OR =4; Status: F Test Note: ; DIAGNOSIS CRITERIA MMB ng/ml Relative Index (RI) NON-AMI < or = 5 N/A NICOLE ZONE > 5 < or = 4 AMI > 5 > 4 Lab Order: Troponin; SPEC'09/08/16 10:09 Test: TROPONIN I; Value: < 0.02; Range: < 0.10; Units: NG/ML; Status: F Test Note: ; Troponin I Reference Interval for [employer] LOCI: 99th Percentile= 0.00-0.045 ng/ml Risk Stratification: <= 0.10 ng/ml Decreased Risk for Adverse Clinical Events. 0.10-1.50 ng/ml Increased Risk for Adverse Clinical Events. Evaluation of additional criterion and/or repeat testing in 2-6 hours is suggested to rule out myocardial damage. >= 1.50 ng/ml Indicative of Myocardial Injury. Lab Order: Lactic Acid (Nicole tube on ice); SPEC'M 09/08/16 10:09 Test: LACTIC ACID LEVEL, LACTATE; Value: 1.0; Range: 0.4-2.0; Units: MMOL/L; Status: F Lab Order: BLOOD CULTURES; SPEC'M 09/08/16 10:17 Test: BLOOD CULTURE; Value: No growth after 24 hours . All specimens observed; Status: F Test: BLOOD CULTURE; Value: for 5 days. Results final at that time.; Status: F Test: BLOOD CULTURE; Value: No Growth after 48 hours. All Specimens observed; Status: F Test: BLOOD CULTURE; Value: for 7 days. Results final at that time.; Status: F Radiology Order: Chest, 2 View (pa\\E\\lat) Test: Chest, 2 View (pa\\E\\lat) REASON FOR EXAMINATION: productive cough; Chest two views; ; HISTORY: Cough; ; Comparison: 01/21/2015; ; The lungs are clear. The heart is normal in size. The pulmonary vasculature is; normal in appearance. The bony structure is intact.; ; IMPRESSION: No acute disease.; ; ; Signed by; Jose Antonio Carmona MD 09/08/2016 10:43 A; Radiology Order: EKG-ADULT Test: EKG-ADULT REASON FOR EXAMINATION: Chest Pain; Stationary ECG Study; [facility] - ED; ; Test Date: 2016-09-08; Pat Name: CODI MCDERMOTT Department:; Room: -; Gender: F Service Station Attendant: rn; : 1945 Requested By: Nahomy Swanson; Order Number: [id number] Reading MD: Ryan Mann; Measurements; Intervals [place]; Rate: 74 P: 68; AR: 136 QRS: 32; QRSD: 88 T: 79; QT: 379; QTc: 422; Interpretive Statements; SINUS RHYTHM; NSTTW ABNORMALITIES; Electronically Signed On 09-08-2016 21:10:57 EST by Ryan Mann; Outcome: 13:53 Discharge ordered by Provider. sd1 15:11 Discharge Assessment: patient administered narcotics - no. The following High Risk rs3 Discharge criteria are identified: None. Discharged to home with family. Condition: stable. Discharge instructions given to patient, Instructed on discharge instructions, follow up and referral plans. medication usage, Demonstrated understanding of instructions, medications, Pt was receptive of discharge instructions/ teaching. No special radiology studies were completed. Property :Personal belongings accompany Pt. 15:12 Patient left the ED. rs3 Signatures: Dispatcher [employer] EDNY Nahomy Swanson MD MD sd1 Yanira Dela Cruz, Fixed Route Bus Operator Unit deg Imelda Oviedo, Reg Reg Patricia Landeros RN RN ck1 Denice VelardeRN RN rs3 Luis Underwood, TOILET PRODUCTS MOLDER TOILET PRODUCTS MOLDER jlf Isabel Cruz RN RN ms18 Rich Maradiaga rn1 Corrections: (The following items were deleted from the chart) 09:43 09:40 Home Meds: prednisone 5 mg Oral tab once daily; ck1 ck1 Chart Complete MTDD
--- NOTE | 2016-09-10 16:13 | EDDOCDS ---
Physician Documentation [facility] Name: Codi Mcdermott Age: 71 yrs Sex: Female : 1945 Arrival Date: 09/08/2016 Time: 09:28 Bed 10 Private MD: Disposition: 09/08/16 13:53 Discharged to Home/Self Care. Impression: Chronic obstructive pulmonary disease with acute lower respiratory infection. - Condition is Stable. - Discharge Instructions: Acute Bronchitis, Chronic Obstructive Pulmonary Disease. - Prescriptions for Ceftin 500 mg Oral Tablet - take 1 tablet by ORAL route every 12 hours for 10 days; 20 tablet. Albuterol Sulfate 90 mcg/actuation Inhalation HFA Aerosol Inhaler - inhale 2 puff by INHALATION route every 4 hours As needed; 1 Inhaler. - Medication Reconciliation, Local Pharmacy Hours form. - Follow up: Private Physician; When: Cass Traore. - Problem is an acute exacerbation. - Symptoms have improved. Historical: - Allergies: Vioxx; IODINEIODINE CONTAINING; Lyrica; flu vaccine; Plaquenil; - Home Meds: 1. Keppra 500 mg Oral tab 1 tab 2 times per day 2. lisinopril 10 mg Oral tab 1 tab once daily 3. labetalol 100 mg Oral tab 0.5 tab 2 times per day 4. pantoprazole 40 mg oral TbEC 1 tab once daily 5. levothyroxine 25 mcg Oral tab 1 tab once daily 6. oxycodone-acetaminophen 5-325 mg Oral tab 1 tab every 4 hours for Pain 7. atorvastatin 40 mg oral tab 1 tab once daily 8. Lomotil 2.5-0.025 mg oral tab 2 tabs once daily PRN 9. albuterol sulfate 90 mcg/actuation Inhl HFAA PRN 10. Restasis 0.05 % ophthalmic dpet 1 drop 2 times per day 11. Nitrolingual 400 mcg/spray TL spra PRN - PMHx: sjogren's syndrome; Anemia; Arthritis; CAD; CancerCervical and Colon; Chronic kidney disease; Depression; GERD; hyperlipidemia; Hypothyroidism; GA; Osteoporosis; Rheumatoid Arthritis; Sciatica; Seizures; - PSHx: Tonsillectomy; Bunion Surgery; Throat Surgery; Right Knee Surgery; Hysterectomy; Appendectomy; Kidney Surgery; - Social history: No barriers to communication noted, The patient speaks fluent Frisian, Speaks appropriately for age, Smoking status: Patient states was never smoker of tobacco. - Family history: Not pertinent. - : The pt / caregiver states he / she is not on anticoagulants. Home medication list is obtained from the patient, Easy[employer] import data. - Exposure Risk Screening:: None identified. Vital Signs: 09/08 09:41 BP 124 / 74 (auto/); ck1 09:42 BP 124 / 74; Pulse 99; Resp 18; Temp 98.7(O); Pulse Ox 94% on R/A; Weight 59.87 kg / ck1 131.99 lbs (R); Height 5 ft. 4 in. (162.56 cm) (R); Pain 7/10; 09:42 Pulse 100 MON; Pulse Ox 93% ; ck1 09:57 BP 123 / 71 (auto/); ck1 09:57 Pulse 88 MON; Pulse Ox 97% ; ck1 10:11 Pulse 80 MON; Pulse Ox 99% ; ck1 10:12 BP 119 / 64 (auto/); ck1 10:27 BP 116 / 69 (auto/); ck1 10:27 Pulse 72 MON; Pulse Ox 100% ; ck1 10:39 Pulse 70 MON; Pulse Ox 99% ; rs3 10:57 BP 148 / 67 (auto/); ms18 10:57 Pulse 70 MON; Pulse Ox 99% ; ms18 11:12 BP 138 / 61 (auto/); ms18 11:12 Pulse 72 MON; Pulse Ox 98% ; ms18 11:27 BP 138 / 64 (auto/); ms18 11:27 Pulse 68 MON; Pulse Ox 98% ; ms18 11:42 BP 134 / 61 (auto/); ms18 11:42 Pulse 70 MON; Pulse Ox 97% ; ms18 11:57 BP 138 / 67 (auto/); ms18 11:57 Pulse 70 MON; Pulse Ox 97% ; ms18 12:12 BP 131 / 65 (auto/); ms18 12:12 Pulse 74 MON; Pulse Ox 98% ; ms18 12:27 BP 140 / 67 (auto/); ms18 12:27 Pulse 72 MON; Resp 18; Pulse Ox 98% ; ms18 12:42 BP 124 / 64 (auto/); rs3 12:42 Pulse 74 MON; Pulse Ox 98% ; rs3 12:57 BP 164 / 72 (auto/); rs3 12:57 Pulse 78 MON; Pulse Ox 94% ; rs3 13:12 BP 163 / 87 (auto/); rs3 13:12 Pulse 94 MON; Pulse Ox 96% ; rs3 13:27 BP 131 / 59 (auto/); rs3 13:27 Pulse 74 MON; Pulse Ox 95% ; rs3 13:42 Pulse 76 MON; Pulse Ox 95% ; rs3 13:57 BP 215 / 99 (auto/); rs3 14:23 BP 140 / 89 (auto/); rs3 14:23 Pulse 86 MON; Pulse Ox 94% ; rs3 14:27 BP 154 / 74 (auto/); rs3 14:27 Pulse 74 MON; Pulse Ox 97% ; rs3 14:42 BP 186 / 78 (auto/); rs3 14:42 Pulse 46 MON; Pulse Ox 95% ; rs3 14:57 BP 173 / 84 (auto/); rs3 14:57 BP 173 / 84; Pulse 82 MON; Resp 18; Temp 98(T); Pulse Ox 96% on R/A; Pain 0/10; rs3 09:42 Body Mass Index 22.66 (59.87 kg, 162.56 cm) ck1 MDM: 09:39 -Blood Culture (Adults Only), peripheral from different site, or from device/port/PICC sd1 etc. if present ordered. 09:39 Racing Mechanic/Pulse Ox/q 15 min VS ordered. sd1 09:39 IV Saline Lock ordered. sd1 09:39 Oxygen at 4L/Min NC or Home dosage ordered. sd1 09:39 Rhythm Strip to chart ordered. sd1 09:39 B-Type Natiuretic Peptide Ordered. EDMS 09:39 Basic Metabolic Profile Ordered. EDMS 09:39 CBC with Diff Ordered. EDMS 09:39 Cardiac Injury Profile Ordered. EDMS 09:39 Troponin Ordered. EDMS 09:39 -Blood Culture Ordered. EDMS 09:40 Chest, 2 View (pa\E\lat) Ordered. EDMS 09:40 ECG WITH READING ER PHYS+CARDIAG ordered. EDMS 09:40 Lactic Acid (Nicole tube on ice) Ordered. EDMS 09:41 NS 0.9% 1000 ml IV at 150 mL/hr continuous ordered. sd1 09:41 -Blood Culture (Adults Only), peripheral from different site, or from device/port/PICC deg etc. if present complete. 09:43 BLOOD CULTURES Ordered. EDMS 10:59 Financial registration complete. lg 12:09 Basic Metabolic Profile Reviewed. sd1 12:09 CBC with Diff Reviewed. sd1 12:09 B-Type Natiuretic Peptide Reviewed. sd1 12:09 Cardiac Injury Profile Reviewed. sd1 12:09 Troponin Reviewed. sd1 12:09 Lactic Acid (Nicole tube on ice) Reviewed. sd1 12:09 Chest, 2 View (pa\E\lat) Reviewed. sd1 12:49 Misc. Nursing Order ordered. sd1 12:49 REGULAR+DIET ordered. EDMS 15:11 T-Sheet-- Draft Copy was scanned into [employer] and attached to record. gb 15:11 ECG/EKG was scanned into [employer] and attached to record. gb Administered Medications: 10:11 Drug: NS 0.9% 1000 ml [sodium chloride 0.9 % intravenous solution] Route: IV; Rate: 150 ck1 mL/hr; Site: right antecubital; Signatures: Dispatcher [employer] EDID Nahomy Swanson MD MD sd1 Yanira Dela Cruz, Research Methodologist Unit deg Imelda Oviedo, Reg Reg gb Nitin Lang, Reg Reg Patricia Pool,RN RN ck1 Denice Velarde,RN RN rs3 The chart was reviewed and I authenticate all verbal orders and agree with the evaluation and treatment provided.Corrections: (The following items were deleted from the chart) 09:43 09:40 Home Meds: prednisone 5 mg Oral tab once daily; ck1 ck1 Attachments: 15:11 T-Sheet-- Draft Copy gb 15:11 ECG/EKG gb Chart Complete MTDD
== END 2016-09-08 15:12 | disposition home or self-care (01) ==
LOC: M ED 09:28
DX: J44.0 Chronic obstructive pulmonary disease with (acute) lower respiratory infection (principal); M35.00 Sjogren syndrome, unspecified; D64.9 Anemia, unspecified; M05.40 Rheumatoid myopathy with rheumatoid arthritis of unspecified site; I25.10 Atherosclerotic heart disease of native coronary artery without angina pectoris; Z85.41 Personal history of malignant neoplasm of cervix uteri; Z85.038 Personal history of other malignant neoplasm of large intestine; N18.9 Chronic kidney disease, unspecified; F32.9 Major depressive disorder, single episode, unspecified; K21.9 Gastro-esophageal reflux disease without esophagitis; E78.5 Hyperlipidemia, unspecified; E03.9 Hypothyroidism, unspecified; I25.2 Old myocardial infarction; M81.0 Age-related osteoporosis without current pathological fracture; M54.30 Sciatica, unspecified side; R56.9 Unspecified convulsions; Z79.51 Long term (current) use of inhaled steroids; Z79.899 Other long term (current) drug therapy; Z88.8 Allergy status to other drugs, medicaments and biological substances; Z88.7 Allergy status to serum and vaccine

== ENCOUNTER → 2016-11-10 | Outpatient (REF) | payer MEDICARE, MEDICAID ==
[2016-11-10 18:14] LABS: PERCENT SATURATION 17.7 % (13.2-37.4)
[2016-11-11 08:25] LABS: CARCINOEMBRYONIC ANTIGEN 5.1 NG/ML (<2.5)
== END ==
LOC: M LAB REF 16:45
PROVIDERS: ATTEND Internal Medicine Medical Oncology
DX: C18.9 Malignant neoplasm of colon, unspecified (principal)

== ENCOUNTER → 2016-11-28 | Outpatient (CLI) | payer MEDICARE, MEDICAID ==
[~2016-11-28] MED LIST changes: +GASTROGRAFIN SOLUTION 30ML (Q9963) As Ordered ONE; +ISOVUE-370 76% 100ML VIAL (Q9967) As Ordered ONE; +READI-CAT 2 As Ordered ONE
--- NOTE | 2016-11-28 15:32 | REP ---
CT ABDOMEN AND PELVIS WITH ORAL CONTRAST ONLY: 11/28/2016. Comparison: 10/12/2015, 03/10/2015. Clinical history: Colon cancer. Some abdominal pain now. Technique: Oral barium mixture was given per our protocol with 450 mL of Readi-Cat for two doses per our protocol. IV contrast given because of iodine allergy. Abdomen and pelvis scan with coronal and sagittal reconstructions. Findings: CT abdomen: The lung bases were clear. The heart is not enlarged. There is no pericardial thickening or effusion. No hiatal hernia. Liver was grossly unremarkable. I do not see definite mass or dilated duct or visible cyst. There is no splenomegaly or focal splenic lesion. There are some clips adjacent to the spleen in the left upper quadrant unchanged. Gallbladder without calcified stone or mass. Visualized pancreas is unremarkable. There are no inflammatory changes in the peripancreatic region. No periaortic or retroperitoneal pathologic sized lymphadenopathy. Oral contrast is seen in small bowel loops. Partial colectomy noted with anastomotic sutures in the right as before. No wall thickening or mass involving the anastomotic site. Small bowel loops are not abnormally dilated. No sign of obstruction. Oral contrast seen scattered in those loops of small bowel. None of it reaches the colonic anastomosis. The anastomotic segments are well filled with stool with some stool seen down to the rectosigmoid mildly distending all of that colon but unchanged. There was no free air or ascites. The aorta has atherosclerotic calcifications without aneurysm. Right kidney shows no hydronephrosis, stone or mass. The left kidney is in the upper pelvis as before, likewise it is without hydronephrosis, stone or mass. Midline incision well healed. Bones show degenerative disc change and vacuum phenomenon at L5- S1. The L1-2 and L2-3 levels were intact. There is no compression deformity or destructive lesion. Posterior elements with some degenerative change. CT pelvis: There are degenerative changes the hips, right greater than left, SI joints symmetric. Iliac wings with a few bone islands, but otherwise intact. Sacrum intact. Acetabuli with minor degenerative changes at the margins with small spurs and subsclerotic and cystic change acetabular roof on the right. Pubic rami and symphysis pubis intact. Uterus absent. Vaginal cuff intact bladder partially filled without a mass or stone. No inguinal hernia or pathologic inguinal adenopathy. No pelvic free fluid or adenopathy. Impression: 1. Postoperative changes with partial colectomy with anastomotic sutures in the right mid abdomen adjacent to the iliac crest. There is no stricture, obstruction or mass. Moderate distension of the remaining segments of colon with stool to the rectosigmoid representing some degree of constipation. No wall thickening. 2. Small bowel loops not dilated. No ascites, adenopathy, mass or free air. 3. Prior hysterectomy. Left pelvic kidney. No hydronephrosis, hydroureter or stone either side. 4. Degenerative changes hips, right greater than left, SI joints and lumbar spine. Signed by Darrell Monge MD 11/28/2016 05:23 P
== END ==
LOC: M RAD 11:06
PROVIDERS: ATTEND Internal Medicine Medical Oncology
DX: R10.9 Unspecified abdominal pain (principal)

== ENCOUNTER → 2017-02-06 | Outpatient (REF) | payer MEDICARE, MEDICAID ==
[~2017-02-06] MED LIST changes: -GASTROGRAFIN SOLUTION 30ML (Q9963) As Ordered ONE; -ISOVUE-370 76% 100ML VIAL (Q9967) As Ordered ONE; -READI-CAT 2 As Ordered ONE
[2017-02-06 20:29] LABS: PERCENT SATURATION 32.2 % (13.2-37.4)
[2017-02-07 10:52] LABS: CARCINOEMBRYONIC ANTIGEN 6.5 NG/ML (<2.5)
== END ==
LOC: M LAB REF 16:59
PROVIDERS: ATTEND Internal Medicine Medical Oncology
DX: C18.9 Malignant neoplasm of colon, unspecified (principal)

== ENCOUNTER 2017-02-12 20:12 | Emergency (ER) | payer MEDICARE, MEDICAID ==
[~2017-02-12] VITALS: Ht 162.6 cm; Wt 64.1 kg
[2017-02-12 20:42] LABS: BASO # 0.1 K/mm3 (0.0-0.2); BASO % 0.6 % (0.0-1.0); EOS # 0.1 K/mm3 (0.0-0.50); EOS % 0.8 % (0.0-3.0); LARGE UNSTAINED CELL # 0.1 K/mm3 (0.0-0.4); LARGE UNSTAINED CELL % 0.6 % (0.0-4.0); LYMPH # 1.7 K/mm3 (1.5-4.5); LYMPH % 16.2 % (24.0-44.0); MEAN CORPUSCULAR HEMOGLOBIN 32.1 pg (27.0-33.0); MEAN CORPUSCULAR HGB CONC 34.2 g/dl (32.0-36.5); MEAN CORPUSCULAR VOLUME 93.8 fl (80.0-96.0); MONO # 0.6 K/mm3 (0.0-0.8); MONO % 5.5 % (0.0-5.0); NEUTROPHILS % 76.3 % (36.0-66.0); PLATELET COUNT, AUTOMATED 328 k/mm3 (150-450); WHITE BLOOD COUNT 10.4 K/mm3 (4.0-10.0)
[2017-02-12] MEDS ORDERED: MORPHINE 2 MG/ML 1ML SYRINGE IV ONE (20:45)
[2017-02-12] MEDS ORDERED: ONDANSETRON 4MG/2ML VIAL (J2405) IV ONE (20:45)
[2017-02-12 20:53] LABS: ALBUMIN 4.2 GM/DL (3.2-5.2); ALBUMIN/GLOBULIN RATIO 1.31 (1.00-1.93); ALKALINE PHOSPHATASE 82 U/L (45-117); ALT/SGPT 31 U/L (12-78); ANION GAP 7 MEQ/L (8-16); AST/SGOT 27 U/L (15-37); BILIRUBIN,DIRECT 0.1 MG/DL (0.0-0.2); BILIRUBIN,TOTAL 0.3 MG/DL (0.2-1.0); BLOOD UREA NITROGEN 7 MG/DL (7-18); CALCIUM LEVEL 9.1 MG/DL (8.8-10.2); CARBON DIOXIDE LEVEL 30 MEQ/L (21-32); CHLORIDE LEVEL 90 MEQ/L (98-107); CREATININE FOR GFR 0.83 MG/DL (0.55-1.02); GLOMERULAR FILTRATION RATE > 60.0 (>39); GLUCOSE, FASTING 106 MG/DL (83-110); POTASSIUM SERUM 3.7 MEQ/L (3.5-5.1); SODIUM LEVEL 127 MEQ/L (136-145); TOTAL PROTEIN 7.4 GM/DL (6.4-8.2)
[2017-02-12] MEDS ORDERED: NS 1,000 ML IV SCH (21:00)
[2017-02-12] MEDS ORDERED: READI-CAT 2 PO ONE ×2 (21:25→22:05)
--- NOTE | 2017-02-13 00:20 | REPUSA ---
CLINICAL HISTORY: Chest pain. TECHNIQUE: Multiple axial CT images were obtained through chest without IV contrast material. MPR cor onal and sagittal sequences were obtained. COMMENTS: There is no evidence of pleural or parenchymal mass. There are no pleural effusions. There is no evid ence of hilar or mediastinal lymphadenopathy. The heart and great vessels are within normal limits. The visualized portions of the liver are of uniform attenuation without mass or defect. There is no i ntra or extrahepatic biliary ductal dilatation. The spleen is unremarkable. The visualized pancreas i s of normal contour and attenuation characteristics. There is no evidence of adrenal mass. The visual ized portions of the kidneys present no abnormalities. The bony structures are free of lytic or blastic lesions. Multilevel degenerative changes are seen in volving the thoracic spine. Scattered calcifications are seen involving the aorta and visualized rashad r branches compatible with atherosclerosis. IMPRESSION: No evidence of acute thoracic pathology. Thank you for your kind referral of this patient.
[2017-02-13 00:30] VITALS: BP 180/81
[2017-02-13] MEDS ORDERED: LABETALOL 100 MG TAB PO ONE (00:30)
[2017-02-13] MEDS ORDERED: METOCLOPRAMIDE INJ 10MG/2ML VIAL (J2765) IV ONE (00:30)
--- NOTE | 2017-02-13 00:40 | REPUSA ---
CLINICAL HISTORY: Abdominal pain. TECHNIQUE: Multiple axial, sagittal and coronal CT images were obtained through the abdomen and pelvi s without administration of IV contrast material. Patient ingested oral contrast. COMMENTS: The liver is of uniform attenuation without mass or defect. There is no intra or extrahepatic biliary ductal dilatation. The spleen is normal. The gallbladder is within normal limits. The pancreas is of normal contour and attenuation characteristics. There is no evidence of adrenal mass. Left nephrectomy. Unremarkable renal transplant in the left iliac fossa. Significantly distended bladder. Mild apparent thickening of the sigmoid colon. Under distention, spasm versus mild colitis. No renal or ureteral calculi are identified. There is no hydroureter or hydronephrosis. There is no evidence for appendicitis. No evidence for small or large bowel obstruction. There is no evidence of abdominal ascites or lymphadenopathy. There is no evidence of intrinsic or extrinsic bladder mass. There is no pelvic ascites or lymphadeno edgar. Images of the lung bases show no evidence of pleural or parenchymal mass. There are no pleural effusi ons. The bony structures are free of lytic or blastic lesions. Multilevel degenerative changes are seen in volving the thoracolumbar spine. Scattered calcifications are seen involving the aorta and major branches compatible with atherosclero sis. IMPRESSION: Left nephrectomy. Unremarkable renal transplant in the left iliac fossa. Significantly distended bladder. Mild apparent thickening of the sigmoid colon. Under distention, spasm versus mild colitis. Thank you for your kind referral of this patient.
[2017-02-13 05:29] VITALS: BP 139/65
--- NOTE | 2017-02-13 05:47 | ECGEPIP ---
Stationary ECG Study [facility] - ED Test Date: 2017-02-12 Pat Name: AYAKA LUCIO Department: Room: - Gender: F Band Saw Marker: ct : 1945 Requested By: JERICA Zavala Order Number: [id number] Reading MD: Ryan Mann Measurements Intervals [place] Rate: 73 P: 70 WV: 160 QRS: 38 QRSD: 106 T: 80 QT: 405 QTc: 449 Interpretive Statements SINUS RHYTHM NSTTW ABNORMALITIES SIMILAR TO 09/08/16 Electronically Signed On 02-13-2017 5:46:30 EDT by Ryan Mann
[2017-02-13] MEDS ORDERED: OXYCODONE/APAP 5MG/325MG(BULK FOR ED) 1 TABLET PO ONE (06:00)
== END 2017-02-13 06:37 | disposition home or self-care (01) ==
LOC: EDBD 20:12 → M ED 21:59
DX: R33.8 Other retention of urine (principal); R10.31 Right lower quadrant pain; R19.7 Diarrhea, unspecified; J44.9 Chronic obstructive pulmonary disease, unspecified; M35.00 Sjogren syndrome, unspecified; Z85.038 Personal history of other malignant neoplasm of large intestine; Z79.899 Other long term (current) drug therapy; Z88.7 Allergy status to serum and vaccine; Z88.8 Allergy status to other drugs, medicaments and biological substances; Z91.09 Other allergy status, other than to drugs and biological substances
CPT/HCPCS: 36415; 51702; 71250; 74176; 80048; 80076; 81001; 82550; 82553; 83690; 84484; 85025; 93005; 93041; 96374; 96375; 99285; J2405; J2765

== ENCOUNTER → 2017-02-15 | Outpatient (CLI) | payer MEDICARE, MEDICAID ==
[~2017-02-15] MED LIST changes: +ALBU17IN INH; +ATOR40TA75 PO; +BENA25TA10 PO; +E-Z-PAQUE 96% w/w SUSP 176GM BTL As Ordered ONE; +FERR1TAB8 PO; +HALO5TA PO; +KEPP1TAB PO; +LABE10TAB PO; +LEVO25TA5 PO; +LOMO2.5T PO; +NITR0.1S SL; +OXCA150T PO; +PANT40TA2 PO; +PERC5TAB12 PO; +PRED10TA2 PO; +REST0.05 OU; +RISP0.5T21 PO; +SENN1TAB2 PO; +SODI1TA PO; +VARIBAR NECTAR 40% w/v 240ML SUSP BTL As Ordered ONE; +VARIBAR PUDDING 40% w/v 230ML TUBE As Ordered ONE; +VITA400T2 PO; +VITATAB11 PO
== END ==
LOC: M RAD 10:00
PROVIDERS: ATTEND Internal Medicine Medical Oncology
DX: Z12.31 Encounter for screening mammogram for malignant neoplasm of breast (principal)

== ENCOUNTER 2017-02-20 19:41 | Inpatient (IN) | payer MEDICARE, MEDICAID ==
[~2017-02-20] VITALS: Ht 170.2 cm; Wt 60.8 kg
[~2017-02-20 19:41] MED LIST changes: -ALBU17IN INH; -ATOR40TA75 PO; -BENA25TA10 PO; -E-Z-PAQUE 96% w/w SUSP 176GM BTL As Ordered ONE; -FERR1TAB8 PO; -HALO5TA PO; -KEPP1TAB PO; -LABE10TAB PO; -LEVO25TA5 PO; -LOMO2.5T PO; -NITR0.1S SL; -OXCA150T PO; -PANT40TA2 PO; -PERC5TAB12 PO; -PRED10TA2 PO; -REST0.05 OU; -RISP0.5T21 PO; -SENN1TAB2 PO; -SODI1TA PO; -VARIBAR NECTAR 40% w/v 240ML SUSP BTL As Ordered ONE; -VARIBAR PUDDING 40% w/v 230ML TUBE As Ordered ONE; -VITA400T2 PO; -VITATAB11 PO
[2017-02-20] MEDS ORDERED: LOMO2.5T PO (19:58)
[2017-02-20] MEDS ORDERED: PERC5TAB12 PO (19:58)
[2017-02-20] MEDS ORDERED: LEVO25TA5 PO (19:58)
[2017-02-20] MEDS ORDERED: PANT40TA2 PO (19:58)
[2017-02-20] MEDS ORDERED: PRED10TA2 PO (19:58)
[2017-02-20] MEDS ORDERED: KEPP1TAB PO (19:58)
[2017-02-20] MEDS ORDERED: OXCA150T PO (19:58)
[2017-02-20] MEDS ORDERED: OXcarbazepine 150 MG TAB PO SCH (21:00)
[2017-02-20] MEDS ORDERED: FERROUS SULFATE 325MG TAB PO SCH (21:00)
[2017-02-20] MEDS ORDERED: LABETALOL 100 MG TAB PO SCH (21:00)
[2017-02-20] MEDS ORDERED: levETIRAcetam 250MG TABLET (KEPPRA) PO SCH (21:00)
[2017-02-20] MEDS ORDERED: NS 500 ML IV ONE (21:30)
[2017-02-20] MEDS ORDERED: ONDANSETRON 4MG/2ML VIAL (J2405) IV ONE (21:30)
[2017-02-20 22:14] LABS: BASO % 0.2 % (0.0-1.0); EOS # 0.1 K/mm3 (0.0-0.50); EOS % 1.2 % (0.0-3.0); LARGE UNSTAINED CELL # 0.1 K/mm3 (0.0-0.4); LARGE UNSTAINED CELL % 0.6 % (0.0-4.0); LYMPH # 2.1 K/mm3 (1.5-4.5); LYMPH % 19.3 % (24.0-44.0); MEAN CORPUSCULAR HEMOGLOBIN 32.6 pg (27.0-33.0); MEAN CORPUSCULAR VOLUME 90.5 fl (80.0-96.0); MONO # 0.6 K/mm3 (0.0-0.8); MONO % 5.1 % (0.0-5.0); NEUTROPHILS # 8.1 K/mm3 (1.8-7.7); NEUTROPHILS % 73.5 % (36.0-66.0); PLATELET COUNT, AUTOMATED 290 k/mm3 (150-450); RED CELL DISTRIBUTION WIDTH 12.8 % (11.5-14.5)
[2017-02-20 22:17] LABS: INR 0.94
[2017-02-20 22:33] LABS: ALBUMIN 4.1 GM/DL (3.2-5.2); ALBUMIN/GLOBULIN RATIO 1.58 (1.00-1.93); ALKALINE PHOSPHATASE 78 U/L (45-117); ALT/SGPT 25 U/L (12-78); ANION GAP 8 MEQ/L (8-16); AST/SGOT 20 U/L (15-37); BILIRUBIN,DIRECT 0.1 MG/DL (0.0-0.2); BILIRUBIN,TOTAL 0.4 MG/DL (0.2-1.0); BLOOD UREA NITROGEN 8 MG/DL (7-18); CALCIUM LEVEL 8.9 MG/DL (8.8-10.2); CARBON DIOXIDE LEVEL 28 MEQ/L (21-32); CHLORIDE LEVEL 84 MEQ/L (98-107); CREATININE FOR GFR 0.81 MG/DL (0.55-1.02); GLOMERULAR FILTRATION RATE > 60.0 (>39); GLUCOSE, FASTING 129 MG/DL (83-110); SODIUM LEVEL 120 MEQ/L (136-145); TOTAL PROTEIN 6.7 GM/DL (6.4-8.2)
[2017-02-20] MEDS ORDERED: ALBU17IN INH (23:50)
[2017-02-20] MEDS ORDERED: VITATAB11 PO (23:50)
[2017-02-20] MEDS ORDERED: FERR1TAB8 PO (23:50)
[2017-02-20] MEDS ORDERED: ATOR40TA75 PO (23:50)
[2017-02-20] MEDS ORDERED: LISI10TA4 PO (23:50)
[2017-02-20] MEDS ORDERED: REST0.05 OU (23:50)
[2017-02-20] MEDS ORDERED: VITA400T2 PO (23:50)
[2017-02-20] MEDS ORDERED: LABE10TAB PO (23:50)
[2017-02-20] MEDS ORDERED: NITR0.1S SL (23:50)
[2017-02-21 00:03] LABS: OSMOLALITY URINE 74 MOSM/KG (500-800)
[2017-02-21] MEDS ORDERED: ASPIRIN 81 MG CHEW TABLET PO ONE (00:45)
[2017-02-21] MEDS ORDERED: NITROGLYCERIN 0.4 MG SUBL TABLET SL PRN (00:45)
[2017-02-21] MEDS ORDERED: ACETAMINOPHEN TAB 650MG DOSE (2X325MG) PO PRN (00:45)
[2017-02-21] MEDS ORDERED: PERCOCET 5MG/325MG TAB PO PRN ×2 (01:15→02:00)
[2017-02-21] MEDS ORDERED: LOMOTIL 2.5MG/0.025MG TABLET PO PRN (01:15)
[2017-02-21 02:08] VITALS: BP 163/69
[2017-02-21 06:00] VITALS: BP 158/74
--- NOTE | 2017-02-21 07:33 | HPEPDOC ---
General Date of Admission Feb 20, 2017 at 22:40 Other Providers PCP-Addie Corral Chief Complaint The patient is a 71-year-old female admitted with a reason for visit of Hyponatremia. Source: Patient Exam Limitations: No limitations History of Present Illness This is a 71yo female with PMH of HTN, hyperlipidemia, CAD, ulcerative colitis, sjogren's, RA, OA, seizure d/o, hyponatremia secondary tegretol, spinal stenosis with chronic pain, colon ca s/p sigmoid resection, copd, fibromyalgia, hyponatremia secondary tegretol who presents with constitutional symptoms of genera malaise and weakness. Pt reports nor complaints and in her usual state of health when over last few days she had noticed increased weakness and decreased exercise tolerance. She also reports difficulty doing her normal ADL's , mainly due to her increased fatigue and sleeping/resting more between activities. She denied changes in bowel/bladder habits, change in appetite, confusion, sleepiness, focal motor deficit, and that she recently saw her front end web developer (in [place]), who checked her thyroid function and reports that it was normal. When she came to ED, lab work showed that she was significantly hyponatremic with sodium of 120. Pt reports history of hyponatremia in the past , but that was secondary to her tegretol and, she reports, that it did not recur after she was changed to keppra. Home Medications Scheduled Atorvastatin Calcium (Atorvastatin Calcium) 40 Mg Tab, 40 MG PO QHS, (Reported) B1/B2/B3/B5/B6 (Vitamin B Complex) 1 Tab Tab, 1 TAB PO DAILY, (Reported) Cholecalciferol (Vitamin D) 400 Unit Tab, 400 UNIT PO DAILY, (Reported) Ferrous Sulfate (Ferrous Sulfate) 325 Mg Tab, 325 MG PO BID, (Reported) Labetalol HCl (Labetalol HCl) 100 Mg Tab, 50 MG PO BID, (Reported) Levetiracetam (Keppra) 500 Mg Tab, 500 MG PO BID, (Reported) Levothyroxine Sodium (Synthroid) 25 Mcg Tab, 25 MCG PO QHS, (Reported) Lisinopril (Lisinopril) 10 Mg Tab, 10 MG PO DAILY, (Reported) Oxcarbazepine (Oxcarbazepine) 150 Mg Tab, 150 MG PO QHS, (Reported) Pantoprazole Sodium (Pantoprazole Sodium) 40 Mg Tab, 40 MG PO DAILY, (Reported) Prednisone (Prednisone) 10 Mg Tab, 10 MG PO DAILY, (Reported) Scheduled PRN (Nitroglycerin Lingual) 0.4 Mg/[place] Spr, 0.4 MG SL NITRO PRN for CHEST PAIN, ( Reported) (Restasis) 0.05 % Emu, 1 DROP OU BID PRN for DRY EYES, (Reported) Albuterol Sulfate (Ventolin Hfa) 200 Puff/8 Gm Aers, 1 PUFF INH Q4H PRN for SHORTNESS OF BREATH, (Reported) Diphenoxylate/Atropine (Lomotil 2.5-0.025 mg) 1 Tab Tab, 1 TAB PO TID PRN for DIARRHEA, (Reported) Oxycodone/Acetaminophen (Percocet 5-325 mg) 1 Tab Tab, 1 TAB PO Q6H PRN for PAIN , (Reported) Allergies Coded Allergies: Hydroxychloroquine (Unverified Allergy, Severe, ANAPHYLAXIS, 02/20/17) BUTTS (Verified Allergy, Intermediate, GERANIUM=SWELLING, 06/03/11) Rofecoxib (Verified Allergy, Intermediate, VOMITING, INCREASED BP, 11/22/12) Iodine (Verified Allergy, Mild, ITCHING, 11/22/12) Contrast Media (Verified Allergy, Unknown, 06/04/08) Flu Virus Vaccine (Verified Allergy, Unknown, 11/22/12) Pregabalin (Verified Adverse Reaction, Mild, INSOMNIA, 11/22/12) Past Medical History Medical History 1. Hypertension 2. Hyperlipdiemia 3. Seizure 4. Ulcerative Colitis 5. Spinal Stenosis 6. Hypothyroidism 7. Sjogren's 8. RA 9. Colon Ca 10. Fibromyalgia Surgical History 1. Subtotal colectomy with ileoproctotectomy 2. Bunionectomy 3. Kidney surgery in childhood (pelvic kidney) 4. Tonsillectomy 5. Total vaginal hysterectomy 6. Traumatic laceration of neck with open exploration Family History Significant Family History: No pertinent family hx Social History * Smoker: former Smoker Alcohol: Denies (Pt ex-etoh abuse) Drugs: denies Recent Travel/Sick Contacts: Denies: Recent travel, Recent sick contacts Pets in the home: Cat(s) Psychosocial History: Anxiety, Depression Lives alone Review of Symptoms Constitutional: Reports: Malaise, Fatigue, Denies: Chills, Fever Eyes: Denies: Vision change ENT: Denies: Head Aches Skin: Denies: Rash, Lesions Pulmonary: Denies: Dyspnea, Cough Cardiovascular: Denies: Chest Pain, Palpitations Gastrointestinal: Denies: Nausea, Vomiting, Abdominal Pain, Diarrhea Genitourinary: Reports: Incontinence, Denies: Dysuria Hematologic: Denies: Bruising Endocrine: Denies: Polydipsia, Polyphagia, Polyuria Musculoskeletal: Reports: Back Pain, Denies: Neck Pain Neurological: Denies: Weakness, Numbness, Change in speech Psych: Reports: Anxiety, Depression Physical Examination General Exam: Positive: Alert, Cooperative, No Acute Distress Eye Exam: Positive: Conjunctiva & lids normal, Negative: Sclera icteric ENT Exam: Positive: Atraumatic, Mucous membr. moist/pink Neck Exam: Positive: Supple, Negative: JVD, thyromegaly, Lymphadenopathy Chest Exam: Positive: Clear to auscultation, Normal air movement, Negative: Rales, Rhonchi, Wheezing Heart Exam: Positive: Rate Normal, Regular Rhythm, Normal S1, Normal S2, Negative: Tachycardic, Bradycardic, Irregular Rhythm, Gallops, Murmurs, Rubs Abdomen Exam: Positive: Normal bowel sounds, Soft, Negative: Tenderness, Hepatospenomegaly Extremity Exam: Negative: Clubbing, Cyanosis, Edema Skin Exam: Positive: Nl turgor and temperature, Negative: Rash, Breakdown Neuro Exam: Positive: Normal Gait, Normal Speech, Strength at 5/5 X4 ext Psych Exam: Positive: Mental status NL, Mood NL, Oriented x 3 Vital Signs Vital Signs Date Time Temp Pulse Resp B/P (MAP) Pulse Ox O2 Delivery O2 Flow Rate FiO2 02/21/17 02:08 97.7 78 19 163/69 (100) 98 Room Air Laboratory Data Labs 24H Laboratory Tests 2 02/20/17 22:02: White Blood Count 11.0H, Red Blood Count 3.57L, Hemoglobin 11.6L, Hematocrit 32.3L, Mean Corpuscular Volume 90.5, Mean Corpuscular Hemoglobin 32.6, Mean Corpuscular Hemoglobin Concent 36.0, Red Cell Distribution Width 12.8, Platelet Count 290, Neutrophils (%) (Auto) 73.5H, Lymphocytes (%) (Auto) 19.3L, Monocytes (%) (Auto) 5.1H, Eosinophils (%) (Auto) 1.2, Basophils (%) (Auto) 0.2 , Neutrophils # (Auto) 8.1H, Lymphocytes # (Auto) 2.1, Monocytes # (Auto) 0.6, Eosinophils # (Auto) 0.1, Basophils # (Auto) 0.0, Large Unclassified Cells % 0.6 , Large Unclassified Cells # 0.1, Prothrombin Time 12.7, Prothromb Time International Ratio 0.94, Activated Partial Thromboplast Time 30.5, Urine Appearance CLEAR, Urine Color COLORLESS, Urine pH 7.0, Urine Specific [place] 1.000L, Urine Protein NEGATIVE, Urine Glucose (UA) NEGATIVE, Urine Ketones NEGATIVE, Urine Urobilinogen 0.2, Urine Bilirubin NEGATIVE, Urine Leukocyte Esterase NEGATIVE, Urine Blood 2+H, Urine Nitrite NEGATIVE, Urine WBC (Auto) 0, Urine RBC (Auto) 0, Urine Hyaline Casts (Auto) 0, Urine Bacteria (Auto) NEGATIVE , Urine Squamous Epithelial Cells 0, Urine Sperm (Auto) , Anion Gap 8, Glomerular Filtration Rate > 60.0, Calcium Level 8.9, Aspartate Amino Transf ( AST/SGOT) 20, Alanine Aminotransferase (ALT/SGPT) 25, Alkaline Phosphatase 78, Total Bilirubin 0.4, Direct Bilirubin 0.1, Total Creatine Kinase 228H, Creatine Kinase MB 7.7H, Creatine Kinase MB Relative Index 3.37, Troponin I < 0.02, Total Protein 6.7, Albumin 4.1, Albumin/Globulin Ratio 1.58, Lipase 204 02/20/17 23:22: Osmolality 256L 02/20/17 23:48: Urine Random Osmolality 74L, Urine Random Sodium 28 CBC/BMP Laboratory Tests 02/20/17 22:02 Red Blood Count 3.57 L, Mean Corpuscular Volume 90.5, Mean Corpuscular Hemoglobin 32.6, Mean Corpuscular Hemoglobin Concent 36.0, Red Cell Distribution Width 12.8, Neutrophils (%) (Auto) 73.5 H, Lymphocytes (%) (Auto) 19.3 L, Monocytes (%) (Auto) 5.1 H, Eosinophils (%) (Auto) 1.2, Basophils (%) ( Auto) 0.2, Neutrophils # (Auto) 8.1 H, Lymphocytes # (Auto) 2.1, Monocytes # ( Auto) 0.6, Eosinophils # (Auto) 0.1, Basophils # (Auto) 0.0 Microbiology Microbiology 02/20/17 Urine Culture, Received Pending Assessment/Plan This is a 71yo female with PMH of HTN, hyperlipidemia, CAD, ulcerative colitis, sjogren's, RA, OA, seizure d/o, hyponatremia secondary tegretol, spinal stenosis with chronic pain, colon ca s/p sigmoid resection, copd, fibromyalgia, hyponatremia secondary tegretol who presents with acute hyponatremia 1 acute hyponatremia Pt has not had recurrence of hyponatremia since about 2014, when she was changed to keppra for her seizure d/o. Urine/serum osm sent from ED Fluid restriction-pt went from 127 to 120 from 02/12-02/20 and while acute would not correct by more than 4mEq/24hrs to minimize risk of CPM While pt reports that her tsh was checked recently will check again to confirm that hypothyroidism is not a factor Most likely MF from urinary retention and reduced solute intake (pt reports adhering to low-sodium diet normally, due to her HTN). Serial bmp 2 Acute urinary retention Pt denied sensation of overfull bladder, inability to urinate or feeling of incomplete urination Valladares placed in ED with 1650cc urine drained, small blood initially secondary trauma, but when seen by me her urine was clear and dilute. Pt's renal function normal and BUN unchanged from prior I/O Consider trial of void in am. 3 HTN Continue lisinopril Continue labetalol 4 Hyperlipidemia Continue lipitor 5 RA/sjogren's Pt on prednisone and her front end web developer is tapering down her steroids Continue prednisone Will check am cortisol (low suspicion of adrenal insufficiency as cause for hyponatremia, but will confirm with cortisol lever) 6 Hypothyroidism Continue synthroid Check TSH 7 Seizure d/o Continue keppra 8 Anemia-chronic Fe deficiency anemia Continue Fe supplements Hgb stable 9 DVT prophylaxis Heparin sq Plan / VTE VTE Prophylaxis Ordered?: Yes Harry Walsh MD Feb 21, 2017 05:03
--- NOTE | 2017-02-21 07:37 | ECGEPIP ---
Stationary ECG Study [facility] - ED Test Date: 2017-02-21 Pat Name: AYAKA LUCIO Department: Room: [place] [address] Gender: F Certified Pest Control Technician: marisa : 1945 Requested By: JERICA Zavala Order Number: [id number] Reading MD: Nahomy Swanson Measurements Intervals [place] Rate: 80 P: 68 NC: 152 QRS: 33 QRSD: 100 T: 168 QT: 362 QTc: 418 Interpretive Statements SINUS RHYTHM MODERATE T-WAVE ABNORMALITY, CONSIDER LATERAL ISCHEMIA SIMILAR 02/12/17 Electronically Signed On 02-21-2017 7:36:55 EDT by Nahomy Swanson
[2017-02-21 08:01] LABS: ANION GAP 7 MEQ/L (8-16); BLOOD UREA NITROGEN 7 MG/DL (7-18); CALCIUM LEVEL 8.9 MG/DL (8.8-10.2); CARBON DIOXIDE LEVEL 28 MEQ/L (21-32); CHLORIDE LEVEL 95 MEQ/L (98-107); CREATININE FOR GFR 0.78 MG/DL (0.55-1.02); GLOMERULAR FILTRATION RATE > 60.0 (>39); GLUCOSE, FASTING 95 MG/DL (83-110); POTASSIUM SERUM 3.8 MEQ/L (3.5-5.1); SODIUM LEVEL 130 MEQ/L (136-145)
[2017-02-21] MEDS: HEPARIN SOD (PORCINE) 5000 UNITS/ML VIAL SC SCH ×2 (08:48→22:00)
[2017-02-21] MEDS: FERROUS SULFATE 325MG TAB PO SCH ×2 (08:49→21:54)
[2017-02-21] MEDS: levETIRAcetam 250MG TABLET (KEPPRA) PO SCH ×2 (08:49→21:57)
[2017-02-21] MEDS: PANTOPRAZOLE 40MG TAB (PROTONIX) PO SCH (08:49)
[2017-02-21] MEDS: LISINOPRIL 10 MG TAB PO SCH (08:51)
[2017-02-21] MEDS: VITAMIN D (CHOLECALCIFEROL) 400 INTERNATIONAL UNITS TAB PO SCH (08:51)
[2017-02-21] MEDS: VITAMIN B COMPLEX/VIT C CAP PO SCH (08:51)
[2017-02-21] MEDS: PERCOCET 5MG/325MG TAB PO PRN ×2 (08:51→21:58)
[2017-02-21] MEDS: predniSONE 10 MG TAB PO SCH (08:51)
[2017-02-21] MEDS: LABETALOL 100 MG TAB PO SCH ×2 (08:52→21:57)
[2017-02-21] MEDS ORDERED: D5W 500 ML IV ONE (09:45)
[2017-02-21 10:00] VITALS: BP 106/63
--- NOTE | 2017-02-21 10:46 | IPNPDOC ---
Date Seen The patient was seen on 02/21/17. Progress Note Subjective: Ms. Mcdermott was seen and evaluated at the bedside, she is currently asymptomatic. She is quite tearful about the fact that she is unable to eat a normal meal due to her Sjogren's syndrome, and that she is limited to a liquid/ pudding only diet. This apparently is a long-term problem that she has been working with multiple doctors in attempts to resolve for the past few years. Otherwise, she denies any shortness of breath, chest discomfort, abdominal pain , nausea, vomiting, bloating, swelling of the feet or the ankles, and the remainder of her review of systems is negative. Objective: General: Awake, alert, oriented 3. She is in no acute distress. HEENT: Head normocephalic, atraumatic, sclera are nonicteric. Hearing is grossly intact to conversation. Respiratory: Clear to auscultation bilaterally with no wheezes, rales, or rhonchi. Cardiovascular: Regular rate and rhythm, with no rubs, gallops, or murmur. Abdomen: Soft, nontender, nondistended, no hepatosplenomegaly appreciated. Bowel sounds present. Extremities: 2+ pulses in the radial and dorsalis pedis bilaterally. No evidence of clubbing or cyanosis. Assessment: 1. Hyponatremia 2. Acute urinary retention 3. Hypertension 4. Hyperlipidemia 5. Rheumatoid arthritis/Sjogren's syndrome 6. Hypothyroidism 7. History of seizures 8. Anemia of chronic disease with concurrent iron deficiency 9. DVT prophylaxis with heparin Plan: Her sodium has corrected from 120 last night to 130 this morning with only a 500 mL bolus of normal saline and fluid restriction. We will give her a 500 mL bolus of D5W, and continue to follow her sodiums throughout the day. I suspect that this may also be partially due to the fact that she has drained 2 L of fluid through her Valladares since last night. A dietary consult was placed in order to help her achieve better nutrition knowing that she is restricted to a liquid/pureed diet. Ensure has been ordered to be drink with every meal in the meantime. The patient reports that she was taken off of her Tegretol years ago, but it is on her home med rec list, and it is also listed on the small paper that she has in her wallet that is her current medication list. I will request the most recent progress note from the office of Dr. Linder and Cristy Ragsdale to determine if she should actually be taking Tegretol at this time. My preceptor for this patient encounter was physically present in the building during the encounter and was fully available. As needed, all aspects of the patient interview, examination, medical decision making process, and medical care plan development were reviewed and approved by the preceptor. Preceptor is aware and concurs with the plan as stated in the body of this note and will attest to such by his/her cosignature. VS, I&O, 24H, Fishbone Vital Signs/I&O Vital Signs Date Time Temp Pulse Resp B/P (MAP) Pulse Ox O2 Delivery O2 Flow Rate FiO2 02/21/17 09:21 18 02/21/17 08:52 68 158/74 02/21/17 06:00 97.5 98 Room Air I&O- Last 24 Hours up to 6 AM 02/21/17 06:00 Intake Total 90 ml Output Total 2150 ml Balance -2060 ml Laboratory Data 24H LABS Laboratory Tests 2 02/20/17 22:02: White Blood Count 11.0H, Red Blood Count 3.57L, Hemoglobin 11.6L, Hematocrit 32.3L, Mean Corpuscular Volume 90.5, Mean Corpuscular Hemoglobin 32.6, Mean Corpuscular Hemoglobin Concent 36.0, Red Cell Distribution Width 12.8, Platelet Count 290, Neutrophils (%) (Auto) 73.5H, Lymphocytes (%) (Auto) 19.3L, Monocytes (%) (Auto) 5.1H, Eosinophils (%) (Auto) 1.2, Basophils (%) (Auto) 0.2 , Neutrophils # (Auto) 8.1H, Lymphocytes # (Auto) 2.1, Monocytes # (Auto) 0.6, Eosinophils # (Auto) 0.1, Basophils # (Auto) 0.0, Large Unclassified Cells % 0.6 , Large Unclassified Cells # 0.1, Prothrombin Time 12.7, Prothromb Time International Ratio 0.94, Activated Partial Thromboplast Time 30.5, Urine Appearance CLEAR, Urine Color COLORLESS, Urine pH 7.0, Urine Specific Monarch 1.000L, Urine Protein NEGATIVE, Urine Glucose (UA) NEGATIVE, Urine Ketones NEGATIVE, Urine Urobilinogen 0.2, Urine Bilirubin NEGATIVE, Urine Leukocyte Esterase NEGATIVE, Urine Blood 2+H, Urine Nitrite NEGATIVE, Urine WBC (Auto) 0, Urine RBC (Auto) 0, Urine Hyaline Casts (Auto) 0, Urine Bacteria (Auto) NEGATIVE , Urine Squamous Epithelial Cells 0, Urine Sperm (Auto) , Anion Gap 8, Glomerular Filtration Rate > 60.0, Calcium Level 8.9, Aspartate Amino Transf ( AST/SGOT) 20, Alanine Aminotransferase (ALT/SGPT) 25, Alkaline Phosphatase 78, Total Bilirubin 0.4, Direct Bilirubin 0.1, Total Creatine Kinase 228H, Creatine Kinase MB 7.7H, Creatine Kinase MB Relative Index 3.37, Troponin I < 0.02, Total Protein 6.7, Albumin 4.1, Albumin/Globulin Ratio 1.58, Lipase 204 02/20/17 23:22: Osmolality 256L 02/20/17 23:48: Urine Random Osmolality 74L, Urine Random Sodium 28 02/21/17 05:52: Thyroid Stimulating Hormone (TSH) 3.210 02/21/17 07:27: Anion Gap 7L, Glomerular Filtration Rate > 60.0, Blood Urea Nitrogen 7, Creatinine 0.78, Sodium Level 130#L, Potassium Level 3.8, Chloride Level 95L, Carbon Dioxide Level 28, Calcium Level 8.9 CBC/BMP Laboratory Tests 02/20/17 22:02 Red Blood Count 3.57 L, Mean Corpuscular Volume 90.5, Mean Corpuscular Hemoglobin 32.6, Mean Corpuscular Hemoglobin Concent 36.0, Red Cell Distribution Width 12.8, Neutrophils (%) (Auto) 73.5 H, Lymphocytes (%) (Auto) 19.3 L, Monocytes (%) (Auto) 5.1 H, Eosinophils (%) (Auto) 1.2, Basophils (%) ( Auto) 0.2, Neutrophils # (Auto) 8.1 H, Lymphocytes # (Auto) 2.1, Monocytes # ( Auto) 0.6, Eosinophils # (Auto) 0.1, Basophils # (Auto) 0.0 02/21/17 07:27 Calcium Level 8.9 Microbiology Microbiology 02/20/17 Urine Culture, Received Pending GME ATTESTATION GME ATTESTATION My preceptor for this patient encounter was physically present in the building during the encounter and was fully available. As needed, all aspects of the patient interview, examination, medical decision making process, and medical care plan development were reviewed and approved by the preceptor. Preceptor is aware and concurs with the plan as stated in the body of this note and will attest to such by his/her cosignature. ATTENDING NOTE I have both independently examined this patient as well as reviewed the note. I have discussed in detail with the resident the findings and plan of treatment as documented in the residents note. I will continue to follow the patient and offer further guidance to the patients care as necessary during this hospital stay. CHYNA Santo MD, DO Feb 21, 2017 10:45 YANELY CLARKE MD Feb 22, 2017 06:49
[2017-02-21 12:18] LABS: ANION GAP 12 MEQ/L (8-16); BLOOD UREA NITROGEN 7 MG/DL (7-18); CALCIUM LEVEL 8.9 MG/DL (8.8-10.2); CARBON DIOXIDE LEVEL 26 MEQ/L (21-32); CHLORIDE LEVEL 92 MEQ/L (98-107); CREATININE FOR GFR 0.91 MG/DL (0.55-1.02); GLOMERULAR FILTRATION RATE > 60.0 (>39); GLUCOSE, FASTING 142 MG/DL (83-110); POTASSIUM SERUM 3.2 MEQ/L (3.5-5.1); SODIUM LEVEL 130 MEQ/L (136-145)
[2017-02-21 14:00] VITALS: BP 135/63
[2017-02-21] MEDS ORDERED: KCL 20MEQ IN D5W 1000ML 1,000 ML IV SCH (14:00)
[2017-02-21 15:30] LABS: ANION GAP 9 MEQ/L (8-16); BLOOD UREA NITROGEN 8 MG/DL (7-18); CARBON DIOXIDE LEVEL 27 MEQ/L (21-32); CHLORIDE LEVEL 92 MEQ/L (98-107); GLOMERULAR FILTRATION RATE > 60.0 (>39); GLUCOSE, FASTING 133 MG/DL (83-110); SODIUM LEVEL 128 MEQ/L (136-145)
[2017-02-21] MEDS: DOCUSATE SODIUM 100 MG CAP PO PRN ×2 (17:29→21:58)
[2017-02-21 18:00] VITALS: BP 130/68
[2017-02-21 19:28] LABS: ANION GAP 8 MEQ/L (8-16); BLOOD UREA NITROGEN 8 MG/DL (7-18); CARBON DIOXIDE LEVEL 29 MEQ/L (21-32); CHLORIDE LEVEL 92 MEQ/L (98-107); CREATININE FOR GFR 0.85 MG/DL (0.55-1.02); GLOMERULAR FILTRATION RATE > 60.0 (>39); GLUCOSE, FASTING 116 MG/DL (83-110); POTASSIUM SERUM 3.9 MEQ/L (3.5-5.1); SODIUM LEVEL 129 MEQ/L (136-145)
[2017-02-21] MEDS ORDERED: ATORVASTATIN 20 MG TAB PO SCH (21:00)
[2017-02-21] MEDS: ATORVASTATIN 20 MG TAB PO SCH (21:53)
[2017-02-21] MEDS: OXcarbazepine 150 MG TAB PO SCH (21:54)
[2017-02-21] MEDS: LEVOTHYROXINE 25MCG TABLET (0.025MG) PO SCH (21:57)
[2017-02-21 22:00] VITALS: BP 144/78
[2017-02-21 23:46] LABS: ANION GAP 8 MEQ/L (8-16); BLOOD UREA NITROGEN 9 MG/DL (7-18); CARBON DIOXIDE LEVEL 28 MEQ/L (21-32); CHLORIDE LEVEL 94 MEQ/L (98-107); CREATININE FOR GFR 0.74 MG/DL (0.55-1.02); GLOMERULAR FILTRATION RATE > 60.0 (>39); GLUCOSE, FASTING 103 MG/DL (83-110); POTASSIUM SERUM 4.3 MEQ/L (3.5-5.1); SODIUM LEVEL 130 MEQ/L (136-145)
[2017-02-22] VITALS (7 sets, daily range): BP systolic 136–190; BP diastolic 65–89
[2017-02-22] MEDS: D5W 1,000 ML IV SCH ×3 (01:32→18:34)
[2017-02-22] MEDS: PERCOCET 5MG/325MG TAB PO PRN ×3 (04:27→20:32)
[2017-02-22 07:13] LABS: MEAN CORPUSCULAR HEMOGLOBIN 32.2 pg (27.0-33.0); MEAN CORPUSCULAR HGB CONC 34.7 g/dl (32.0-36.5); MEAN CORPUSCULAR VOLUME 92.8 fl (80.0-96.0); RED CELL DISTRIBUTION WIDTH 13.1 % (11.5-14.5); WHITE BLOOD COUNT 10.1 K/mm3 (4.0-10.0)
[2017-02-22 07:27] LABS: ANION GAP 8 MEQ/L (8-16); BLOOD UREA NITROGEN 7 MG/DL (7-18); CALCIUM LEVEL 8.8 MG/DL (8.8-10.2); CARBON DIOXIDE LEVEL 27 MEQ/L (21-32); CHLORIDE LEVEL 96 MEQ/L (98-107); CREATININE FOR GFR 0.69 MG/DL (0.55-1.02); GLOMERULAR FILTRATION RATE > 60.0 (>39); GLUCOSE, FASTING 100 MG/DL (83-110); POTASSIUM SERUM 3.7 MEQ/L (3.5-5.1); SODIUM LEVEL 131 MEQ/L (136-145)
[2017-02-22] MEDS: LABETALOL 100 MG TAB PO SCH ×2 (08:18→20:30)
[2017-02-22] MEDS: HEPARIN SOD (PORCINE) 5000 UNITS/ML VIAL SC SCH ×2 (08:18→20:28)
[2017-02-22] MEDS: LISINOPRIL 10 MG TAB PO SCH (08:19)
[2017-02-22] MEDS: predniSONE 10 MG TAB PO SCH (08:19)
[2017-02-22] MEDS: VITAMIN B COMPLEX/VIT C CAP PO SCH (08:19)
[2017-02-22] MEDS: FERROUS SULFATE 325MG TAB PO SCH ×2 (08:19→20:31)
[2017-02-22] MEDS: levETIRAcetam 250MG TABLET (KEPPRA) PO SCH ×2 (08:19→20:29)
[2017-02-22] MEDS: PANTOPRAZOLE 40MG TAB (PROTONIX) PO SCH (08:19)
[2017-02-22] MEDS: VITAMIN D (CHOLECALCIFEROL) 400 INTERNATIONAL UNITS TAB PO SCH (08:19)
[2017-02-22] MEDS ORDERED: DESMOPRESSIN 0.01% NASAL SOLN 5 ML BTL ONE (10:30)
--- NOTE | 2017-02-22 11:06 | CR ---
DATE OF CONSULTATION: 02/21/2017 CONSULTATION FOR: Sangeetha Scott MD REASON FOR CONSULTATION: Hyponatremia with rapid correction overnight. HISTORY OF PRESENT ILLNESS: Mrs. Mcdermott is a 71-year-old female with multiple chronic medical problems. She was brought to the emergency room for not feeling well. She was found to have a sodium level of 120 and got admitted last evening. Apparently, she was treated with normal saline bolus and then fluid restriction. This morning, her sodium went up to 130 due to which nephrology consultation was requested. PAST MEDICAL HISTORY (Significant for): 1. Hypertension. 2. Hyperlipidemia. 3. Coronary artery disease. 4. Ulcerative colitis. 5. Sjogren's syndrome. 6. Rheumatoid arthritis. 7. History of seizure disorder. 8. Prior history of hyponatremia. 9. History of spinal stenosis with chronic pain. 10. History of colon cancer, status post sigmoid resection. 11. History of fibromyalgia. 12. Chronic obstructive pulmonary disease (COPD). 13. Hypothyroidism. PAST SURGICAL HISTORY (Significant for) 1. Colon resection and ileoproctectomy. 2. Surgery for a pelvic kidney in childhood. 3. Tonsillectomy. 4. Total hysterectomy. 5. Neck surgery for trauma. MEDICATIONS (Home medications include): - nitroglycerin as needed - albuterol inhaler as needed - Percocet 1 tablet every 6 hours as needed pain - Lomotil 1 tablet three times a day as needed diarrhea - Restasis eye drops ALLERGIES (The patient has multiple allergies including): - IODINE - HYDROXYCHLOROQUINE - CONTRAST MEDIA - LYRICA - FLU VACCINE FAMILY HISTORY: Negative for any kidney problems. PERSONAL AND SOCIAL HISTORY: The patient is a former smoker. She denies any alcohol or drug use. REVIEW OF SYSTEMS: Her main complaint is a burning sensation all over her body. She denies any fever or chills. She just does not feel well. Eyes, ears, nose and throat are unremarkable. Cardiovascular system is negative for dyspnea or chest pain. Respiratory system negative for cough or hemoptysis. Gastrointestinal (GI) system is significant for inability to swallow solid food. She has been consuming mostly liquids. She has chronic diarrhea. Genitourinary () system is significant for polyuria. She denies any dysuria, but did have hematuria due to Valladares catheter. She has history of urinary retention recently due to which Valladares catheter was placed about a week ago. Hematological system is significant for easy bruising. She denies any chronic anticoagulation. Endocrine system is significant for polyuria and excessive fluid intake. She denies any history of diabetes or thyroid problems. Psychosocial system is significant for anxiety and depression. Neurological system is significant for severe peripheral neuropathy. PHYSICAL EXAMINATION: Anxious looking female sitting in the bed. Temperature is 97 degrees Fahrenheit, heart rate 72 per minute and respiratory rate 18 per minute. Blood pressure 106/63 mmHg and oxygen saturation 98% on room air. Head is atraumatic. Ears, nose and throat are unremarkable. Neck is supple and without jugular venous distention (JVD) or thyroid enlargement. Heart sounds are regular and lungs clear to auscultation. Abdomen soft and without a palpable organomegaly. Bowel sounds are normal. Extremities have no cyanosis or clubbing. Skin has no rash or ulcers. Neurologically, she is awake, alert and oriented times three. LABORATORY DATA: On admission, sodium 120 and potassium 4.0. Osmolality was 256, BUN 18, creatinine 0.81. Urine osmolality 74 and random urine sodium 28. Specific gravity is 1.000 and urine pH 7.0. Repeat chemistry this morning showed sodium 113, potassium 3.8. BUN 7 and creatinine 0.78. TSH level 3.21. PROBLEMS: 1. Hyponatremia. The patient does have history of chronic hyponatremia; however, it was worse on admission this time. Most likely, this is related to her chronic intake of liquids only and no solid food. On 02/12/2017, her sodium level was 127 while prior to this in August her sodium was 140. In any event, her low sodium needs to be corrected slowly. I have discussed with the patient about long-term management of her nutrition and fluid intake. She has history of polyuria and does need excessive amount of fluid. I feel that her protein intake has been very low which is probably contributing. Her urine osmolality was only 1.0 which is suggestive off possibility of partial nephrogenic and diabetes insipidus. At present, we will not limit her fluid intake and continue to monitor her electrolytes. Her sodium got corrected too rapidly overnight up to 130 and will try to bring it down. She will be given IV D5W and electrolytes will be monitored every few hours. After lowering the sodium to about 126 range, then we will let it correct relatively slowly. She does need excessive amount of fluid due to excessive urine output which makes her management somewhat difficult; however, she will need close monitoring in the hospital. 2. Protein calorie malnutrition. I feel that the patient should drink at least 4 cans of Ensure or Nepro every day. She is chronically malnourished. She will continue with fluid intake according to her needs of thirst and nutrition. 3. Hyponatremia. Her most recent labs showed a potassium level of 3.2. I am adding 20 mEq potassium chloride in each liter of IV fluid. Her electrolytes will be checked again every few hours and further adjustments will be made as needed. I thank you for involving me in the care of Mrs. Mcdermott. I will follow her along with you.
[2017-02-22] MEDS ORDERED: POTASSIUM CHLORIDE 10 MEQ SR TABLET PO ONE (12:00)
[2017-02-22 12:14] LABS: ANION GAP 10 MEQ/L (8-16); BLOOD UREA NITROGEN 6 MG/DL (7-18); CALCIUM LEVEL 9.3 MG/DL (8.8-10.2); CARBON DIOXIDE LEVEL 28 MEQ/L (21-32); CHLORIDE LEVEL 95 MEQ/L (98-107); CREATININE FOR GFR 0.82 MG/DL (0.55-1.02); GLOMERULAR FILTRATION RATE > 60.0 (>39); GLUCOSE, FASTING 88 MG/DL (83-110); POTASSIUM SERUM 3.8 MEQ/L (3.5-5.1); SODIUM LEVEL 133 MEQ/L (136-145)
--- NOTE | 2017-02-22 12:52 | IPN ---
DATE: 02/22/2017 Mrs. Mcdermott is seen this morning on her bedside. She remains weak and reports that she did not sleep very well. Her main complaint continues to be burning all over her body. She denies any nausea or vomiting. She does not eat any solid food and has been mostly on liquids including Ensure, V8 juice and water. She has no diarrhea or vomiting. She denies any dyspnea, chest pain, fever or chills. On physical exam, temperature 97.8 degrees Fahrenheit, heart rate 58 per minute and respiratory rate 18 per minute. Blood pressure 149/67 mmHg and oxygen saturation 97% on room air. Intake and output records from yesterday showed total intake 3693 and output 6875 with a negative fluid balance of about 3.2 liters. Her head is atraumatic. Neck is supple and without jugular venous distention (JVD) or thyroid enlargement. Ears, nose and throat are unremarkable. Heart sounds are regular and lungs clear to auscultation. Abdomen soft and nontender and without a palpable organomegaly. Bowel sounds are normal. Extremities have no cyanosis or clubbing. Skin has no rash or ulcers. Neurologically, she is awake, alert and oriented times three. Today's labs show sodium level 131 and potassium 3.7. BUN is 7 and creatinine 0.69. Calcium level 8.80. WBC count is 10.1, hemoglobin 10.8 and hematocrit 31%. PROBLEMS: 1. Hyponatremia. Sodium level is essentially stable. She has been on IV fluid as her oral intake is not keeping up with her urine output. At this point, her electrolytes are being monitored frequently. 2. Polyuria. 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 I will recheck her urine osmolality, urine sodium and urine creatinine. I will also get a serum antidiuretic hormone level. We will give her a trial of DDAVP nasal spray one spray today. If she does not respond to it, then we will continue to replace her fluid losses. At this point, she is not suitable for hydrochlorothiazide as she seems to be somewhat dehydrated with negative fluid balance and her potassium level is borderline low. I will give her one more dose of oral potassium chloride today and recheck her electrolytes tomorrow. We will continue to monitor her urine output and see response to DDAVP nasal spray.
--- NOTE | 2017-02-22 13:39 | IPNPDOC ---
Date Seen The patient was seen on 02/22/17. Progress Note Subjective: Ms. Mcdermott was once again very tearful this morning, and she is complaining of all over and burning pain on her insides. She states that this is been going on for many years. Apparently she did not have a very good night because of her pain. When questioning the patient, she has an almost uniformly positive review of systems, but it is unclear as to whether she is currently experiencing these symptoms or if it has happened in the past, as it is somewhat difficult to get a straight story out of her, and she often goes off on unrelated tangents with almost every question. Ultimately, it does not appear that she has any new symptoms since yesterday. Objective: General: Awake, alert, oriented 3. She is in no acute distress. HEENT: Head normocephalic, atraumatic, sclera are nonicteric. Hearing is grossly intact to conversation. Respiratory: Clear to auscultation bilaterally with no wheezes, rales, or rhonchi. Cardiovascular: Regular rate and rhythm, with no rubs, gallops, or murmur. Abdomen: Soft, nontender, nondistended, no hepatosplenomegaly appreciated. Bowel sounds present. Valladares catheter still in place, draining fairly clear urine Extremities: 2+ pulses in the radial and dorsalis pedis bilaterally. No evidence of clubbing or cyanosis. Assessment: 1. Hyponatremia 2. Acute urinary retention 3. Hypertension 4. Hyperlipidemia 5. Rheumatoid arthritis/Sjogren's syndrome 6. Hypothyroidism 7. History of seizures 8. Anemia of chronic disease with concurrent iron deficiency 9. DVT prophylaxis with heparin Plan: Nephrology has been consulted regarding her hyponatremia. It is our suspicion that she may have an aspect of diabetes insipidus, a trial of DDAVP will be undertaken today per their recommendations. This is also likely compounded by the fact that she has an almost purely liquid diet, dietary supplementation has been ordered, and a dietary consult is also been ordered, their input will be greatly appreciated in this case. Otherwise, we will try to maintain her at about the same sodium for today, and then probably begin a slow treatment of her hyponatremia beginning tomorrow, this will be in conjunction with recommendations from nephrology. My preceptor for this patient encounter was physically present in the building during the encounter and was fully available. As needed, all aspects of the patient interview, examination, medical decision making process, and medical care plan development were reviewed and approved by the preceptor. Preceptor is aware and concurs with the plan as stated in the body of this note and will attest to such by his/her cosignature. VS, I&O, 24H, Fishbone Vital Signs/I&O Vital Signs Date Time Temp Pulse Resp B/P (MAP) Pulse Ox O2 Delivery O2 Flow Rate FiO2 02/22/17 12:02 15 Room Air 02/22/17 08:19 149/67 02/22/17 08:18 58 02/22/17 06:00 97.8 97 I&O- Last 24 Hours up to 6 AM 02/22/17 05:59 Intake Total 3913 ml Output Total 5800 ml Balance -1887 ml Laboratory Data 24H LABS Laboratory Tests 2 02/21/17 15:00: Anion Gap 9, Glomerular Filtration Rate > 60.0, Blood Urea Nitrogen 8, Creatinine 0.90, Sodium Level 128L, Potassium Level 4.0#, Chloride Level 92L, Carbon Dioxide Level 27, Calcium Level 9.0 02/21/17 18:57: Anion Gap 8, Glomerular Filtration Rate > 60.0, Blood Urea Nitrogen 8, Creatinine 0.85, Sodium Level 129L, Potassium Level 3.9, Chloride Level 92L, Carbon Dioxide Level 29, Calcium Level 9.0 02/21/17 22:43: Anion Gap 8, Glomerular Filtration Rate > 60.0, Blood Urea Nitrogen 9, Creatinine 0.74, Sodium Level 130L, Potassium Level 4.3, Chloride Level 94L, Carbon Dioxide Level 28, Calcium Level 9.0 02/22/17 06:45: Anion Gap 8, Glomerular Filtration Rate > 60.0, Blood Urea Nitrogen 7, Creatinine 0.69, Sodium Level 131L, Potassium Level 3.7, Chloride Level 96L, Carbon Dioxide Level 27, Calcium Level 8.8 02/22/17 11:06: Anion Gap 10, Glomerular Filtration Rate > 60.0, Blood Urea Nitrogen 6L, Creatinine 0.82, Sodium Level 133L, Potassium Level 3.8, Chloride Level 95L, Carbon Dioxide Level 28, Calcium Level 9.3 CBC/BMP Laboratory Tests 02/21/17 15:00 Calcium Level 9.0 02/21/17 18:57 Calcium Level 9.0 7/4/17 22:43 Calcium Level 9.0 02/22/17 06:45 Calcium Level 8.8, Red Blood Count 3.35 L, Mean Corpuscular Volume 92.8, Mean Corpuscular Hemoglobin 32.2, Mean Corpuscular Hemoglobin Concent 34.7, Red Cell Distribution Width 13.1 02/22/17 11:06 Calcium Level 9.3 Microbiology Microbiology 02/20/17 Urine Culture, Received Pending GME ATTESTATION GME ATTESTATION My preceptor for this patient encounter was physically present in the building during the encounter and was fully available. As needed, all aspects of the patient interview, examination, medical decision making process, and medical care plan development were reviewed and approved by the preceptor. Preceptor is aware and concurs with the plan as stated in the body of this note and will attest to such by his/her cosignature. ATTENDING NOTE I have both independently examined this patient as well as reviewed the note. I have discussed in detail with the resident the findings and plan of treatment as documented in the residents note. I will continue to follow the patient and offer further guidance to the patients care as necessary during this hospital stay. CHYNA Santo MD, DO Feb 22, 2017 13:38 YANELY CLARKE MD Feb 23, 2017 17:34
[2017-02-22 14:04] LABS: OSMOLALITY URINE 385 MOSM/KG (500-800)
[2017-02-22] MEDS ORDERED: NITROGLYCERIN 2% OINT 1 GM *U/D* PKT TOP ONE (18:30)
[2017-02-22] MEDS ORDERED: ASPIRIN 325 MG TAB PO ONE (18:30)
[2017-02-22] MEDS: cefTRIAXone SOD 2 GM in D5W MINI-BAG PLUS 50 ML IV SCH (20:27)
--- NOTE | 2017-02-22 20:27 | ECGEPIP ---
Stationary ECG Study [facility] Test Date: 2017-02-22 Pat Name: AYAKA LUCIO Department: Room: [place] [address] Gender: F Teleprinter: : [id number] Requested By: YANELY CLARKE Order Number: [id number] Reading MD: Omaira Cruz Measurements Intervals [place] Rate: 65 P: 61 MI: 164 QRS: 13 QRSD: 91 T: 93 QT: 392 QTc: 410 Interpretive Statements SINUS RHYTHM ANT LAT T-WAVE ABNORMALITY NOT MARKED 02/21/17 HIGH LATERAL T ABN PERSISTS Electronically Signed On 02-22-2017 20:27:31 EDT by Omaira Cruz
[2017-02-22] MEDS: LEVOTHYROXINE 25MCG TABLET (0.025MG) PO SCH (20:28)
[2017-02-22] MEDS: OXcarbazepine 150 MG TAB PO SCH (20:30)
[2017-02-22] MEDS: ATORVASTATIN 20 MG TAB PO SCH (20:30)
[2017-02-23] VITALS (7 sets, daily range): BP systolic 122–190; BP diastolic 57–79
[2017-02-23] MEDS ORDERED: ONDANSETRON 4MG/2ML VIAL (J2405) IV SCH (02:00)
[2017-02-23] MEDS: PERCOCET 5MG/325MG TAB PO PRN ×2 (03:02→09:05)
[2017-02-23] MEDS ORDERED: GABAPENTIN 300 MG CAP PO ONE (04:45)
[2017-02-23] MEDS: D5W 1,000 ML IV SCH (05:13)
[2017-02-23] MEDS: ISOSORBIDE DIN. (ISORDIL) 20 MG TAB PO SCH ×3 (06:00→20:48)
[2017-02-23 06:48] LABS: MEAN CORPUSCULAR HEMOGLOBIN 32.3 pg (27.0-33.0); MEAN CORPUSCULAR VOLUME 89.7 fl (80.0-96.0); RED CELL DISTRIBUTION WIDTH 12.9 % (11.5-14.5); WHITE BLOOD COUNT 9.8 K/mm3 (4.0-10.0)
[2017-02-23 07:19] LABS: BLOOD UREA NITROGEN 5 MG/DL (7-18); CALCIUM LEVEL 8.7 MG/DL (8.8-10.2); CHLORIDE LEVEL 81 MEQ/L (98-107); CREATININE FOR GFR 0.66 MG/DL (0.55-1.02); GLOMERULAR FILTRATION RATE > 60.0 (>39); GLUCOSE, FASTING 95 MG/DL (83-110); POTASSIUM SERUM 3.4 MEQ/L (3.5-5.1)
[2017-02-23 07:44] LABS: ANION GAP 9 MEQ/L (8-16); CARBON DIOXIDE LEVEL 29 MEQ/L (21-32)
[2017-02-23 07:46] LABS: SODIUM LEVEL 119 MEQ/L (136-145)
[2017-02-23] MEDS: ONDANSETRON 4MG/2ML VIAL (J2405) IV PRN (07:58)
[2017-02-23] MEDS ORDERED: PREVNAR 13 VACCINE SYRINGE (CPT CODE:90670) IM ONE (09:00)
[2017-02-23] MEDS: LISINOPRIL 10 MG TAB PO SCH (09:01)
[2017-02-23] MEDS: VITAMIN D (CHOLECALCIFEROL) 400 INTERNATIONAL UNITS TAB PO SCH (09:01)
[2017-02-23] MEDS: VITAMIN B COMPLEX/VIT C CAP PO SCH (09:01)
[2017-02-23] MEDS: PANTOPRAZOLE 40MG TAB (PROTONIX) PO SCH (09:01)
[2017-02-23] MEDS: predniSONE 10 MG TAB PO SCH (09:02)
[2017-02-23] MEDS: FERROUS SULFATE 325MG TAB PO SCH ×2 (09:02→20:45)
[2017-02-23] MEDS: LABETALOL 100 MG TAB PO SCH ×2 (09:02→20:47)
[2017-02-23] MEDS: levETIRAcetam 250MG TABLET (KEPPRA) PO SCH ×2 (09:02→20:48)
[2017-02-23] MEDS: HEPARIN SOD (PORCINE) 5000 UNITS/ML VIAL SC SCH ×2 (09:05→20:48)
[2017-02-23 09:43] LABS: ANION GAP 8 MEQ/L (8-16); BLOOD UREA NITROGEN 4 MG/DL (7-18); CALCIUM LEVEL 8.9 MG/DL (8.8-10.2); CARBON DIOXIDE LEVEL 32 MEQ/L (21-32); CHLORIDE LEVEL 79 MEQ/L (98-107); CREATININE FOR GFR 0.69 MG/DL (0.55-1.02); GLOMERULAR FILTRATION RATE > 60.0 (>39); GLUCOSE, FASTING 102 MG/DL (83-110); POTASSIUM SERUM 3.7 MEQ/L (3.5-5.1); SODIUM LEVEL 119 MEQ/L (136-145)
[2017-02-23] MEDS ORDERED: KCL 20MEQ IN 0.45NS 1000ML 1,000 ML IV SCH (11:00)
[2017-02-23] MEDS ORDERED: hydrOXYzine 10 MG TAB PO PRN (11:15)
[2017-02-23] MEDS: POTASSIUM CHLORIDE 10 MEQ SR TABLET PO SCH ×3 (11:40→20:46)
--- NOTE | 2017-02-23 11:44 | IPNPDOC ---
Date Seen The patient was seen on 02/23/17. Progress Note Subjective: The pertinent items in Ms. Mcdermott's review of systems is that she continues to complain of fall body burning as well as itching. She also states that she had a couple episodes of vomiting this morning. She was treated with gabapentin and Zofran overnight. She also reports that she has not had much of an appetite this morning. Otherwise, the remainder of her review of systems was difficult to elicit as she continually veered off on tangential thoughts. Objective: General: Awake, alert, oriented 3. She is in no mild to moderate distress. HEENT: Head normocephalic, atraumatic, sclera are nonicteric. Hearing is grossly intact to conversation. No JVD is appreciated Respiratory: Clear to auscultation bilaterally with no wheezes, rales, or rhonchi. Cardiovascular: Regular rate and rhythm, with no rubs, gallops, or murmur. Abdomen: Soft, nontender, nondistended, no hepatosplenomegaly appreciated. Bowel sounds present. Valladares catheter still in place, draining fairly clear urine Extremities: 2+ pulses in the radial and dorsalis pedis bilaterally. No evidence of clubbing or cyanosis. Assessment: 1. Hyponatremia 2. Acute urinary retention 3. Urinary tract infection 4. Hypertension 5. Hyperlipidemia 6. Rheumatoid arthritis/Sjogren's syndrome 7. Hypothyroidism 8. History of seizures 9. Anemia of chronic disease with concurrent iron deficiency 10. DVT prophylaxis with heparin Plan: She responded well to DDAVP, indicating that she likely has diabetes insipidus, however given her entire clinical picture, and her feeling ill last night and not drinking anything this morning may complicate the picture. Nephrology's input regarding her case is greatly appreciated, we will continue with treatment of hyponatremia per their recommendations. Will check bladder scans periodically to make sure that she is not retaining urine despite her high output. As concerning her full body and burning/itching, will start her on hydroxyzine as needed. For her vomiting, she was started on Zofran as needed overnight, and she states that she has not been able to tolerate acetaminophen ever since she was a small child is his concern upset stomach, therefore Percocets were discontinued and she will be started on hydrocodone alone. Also , her UA is indicative of a urinary tract infection, and given her pain, she has been started empirically on Rocephin. My preceptor for this patient encounter was physically present in the building during the encounter and was fully available. As needed, all aspects of the patient interview, examination, medical decision making process, and medical care plan development were reviewed and approved by the preceptor. Preceptor is aware and concurs with the plan as stated in the body of this note and will attest to such by his/her cosignature VS, I&O, 24H, Fishbone Vital Signs/I&O Vital Signs Date Time Temp Pulse Resp B/P (MAP) Pulse Ox O2 Delivery O2 Flow Rate FiO2 02/23/17 09:35 18 02/23/17 09:01 190/79 02/23/17 04:55 97.4 75 99 Room Air 02/23/17 02:35 2.0 I&O- Last 24 Hours up to 6 AM 02/23/17 06:00 Intake Total 4920 ml Output Total 4000 ml Balance 920 ml Laboratory Data 24H LABS Laboratory Tests 2 02/22/17 13:38: Urine Appearance CLOUDYH, Urine Color MARY ALICE, Urine pH 5.0, Urine Specific Spencer 1.011, Urine Protein NEGATIVE, Urine Glucose (UA) NEGATIVE, Urine Ketones NEGATIVE, Urine Urobilinogen 0.2, Urine Bilirubin NEGATIVE, Urine Leukocyte Esterase 3+H, Urine Blood 1+H, Urine Nitrite POSITIVE, Urine WBC (Auto ) 38H, Urine RBC (Auto) 20H, Urine Hyaline Casts (Auto) 0, Urine Bacteria (Auto ) 1+H, Urine Squamous Epithelial Cells 0, Urine Amorphous Sediment SMALLH, Urine Mucus (Auto) SMALL, Urine Sperm (Auto) , Urine Random Osmolality 385L, Urine Random Creatinine 66.7, Urine Random Sodium 60 02/22/17 18:44: Total Creatine Kinase 81, Creatine Kinase MB 2.2, Creatine Kinase MB Relative Index 2.71, Troponin I < 0.02 02/23/17 00:40: Total Creatine Kinase 86, Creatine Kinase MB 2.6, Creatine Kinase MB Relative Index 3.02, Troponin I < 0.02 02/23/17 06:20: Anion Gap 9, Glomerular Filtration Rate > 60.0, Blood Urea Nitrogen 5L, Creatinine 0.66, Sodium Level 119#*L, Potassium Level 3.4L, Chloride Level 81L, Carbon Dioxide Level 29, Calcium Level 8.7L 02/23/17 08:21: Anion Gap 8, Glomerular Filtration Rate > 60.0, Blood Urea Nitrogen 4L, Creatinine 0.69, Sodium Level 119*L, Potassium Level 3.7, Chloride Level 79L, Carbon Dioxide Level 32, Calcium Level 8.9 CBC/BMP Laboratory Tests 02/23/17 06:20 Red Blood Count 3.46 L, Mean Corpuscular Volume 89.7, Mean Corpuscular Hemoglobin 32.3, Mean Corpuscular Hemoglobin Concent 36.0, Red Cell Distribution Width 12.9, Calcium Level 8.7 L 02/23/17 08:21 Calcium Level 8.9 Microbiology Microbiology 02/20/17 Urine Culture - Final, Complete Enterobacter Cloacae Complex GME ATTESTATION GME ATTESTATION My preceptor for this patient encounter was physically present in the building during the encounter and was fully available. As needed, all aspects of the patient interview, examination, medical decision making process, and medical care plan development were reviewed and approved by the preceptor. Preceptor is aware and concurs with the plan as stated in the body of this note and will attest to such by his/her cosignature. ATTENDING NOTE I have both independently examined this patient as well as reviewed the note. I have discussed in detail with the resident the findings and plan of treatment as documented in the residents note. I will continue to follow the patient and offer further guidance to the patients care as necessary during this hospital stay. CHYNA Santo MD, DO Feb 23, 2017 11:44 YANELY CLARKE MD Feb 23, 2017 17:36
--- NOTE | 2017-02-23 12:36 | IPN ---
DATE: 02/23/2017 Mrs. Mcdermott is seen this morning on her bedside. She reports recurrent vomiting since morning. She has not been eating due to not feeling well. She denies any headache, dyspnea or chest pain. PHYSICAL EXAMINATION: Temperature 97.4 Fahrenheit, heart rate 76 per minute and respiratory rate 18 per minute. Blood pressure 190/79 mmHg and oxygen saturation 99% on room air. Head is atraumatic. Neck is supple and without jugular venous distention (JVD) or thyroid enlargement. Oral mucosa is somewhat dry. Heart sounds are regular and lungs clear to auscultation. Abdomen is soft, nontender. Bowel sounds are normal. Extremities have no cyanosis or clubbing. Skin has no rash or ulcers. Neurologically, she is awake, alert and oriented times three. She is talking most of the time about her pain and itching all over her body. Today's laboratories show WBC count 9.8, hemoglobin 11.2, hematocrit 31.0. Sodium 119 and potassium 3.7. BUN is 4 and creatinine 0.69. Glucose 102 and calcium 8.9. PROBLEMS: 1. Recurrent hyponatremia. The patient has developed worsening hyponatremia again today. It was felt that she has diabetes insipidus and one dose of DDAVP nasal spray was given yesterday. Her urine output was about 3 liters compared to 6.8 liters the day before yesterday. She has been receiving IV fluid D5W, which is being stopped. We will replace the IV fluid with half-normal saline and recheck her electrolytes every 4 hours. We will try to bring her sodium level up gradually. 2. Diabetes insipidus. Antidiuretic hormone level is pending. The patient was given one dose of DDAVP nasal spray yesterday as a trial and she responded very well. She most likely has diabetes insipidus. At present, her sodium level is too low. We will not give her anymore DDAVP today. She is also vomiting frequently, which may have contributed to her hyponatremia. Her electrolytes will be checked again in a few hours. 3. Hypokalemia. Potassium level is still somewhat low. We will give her potassium chloride in IV fluid 20 mEq in each liter. We also give her a oral supplement of potassium chloride 20 mEq three times a day until her potassium level improves. 4. Chronic pain with history of fibromyalgia, rheumatoid arthritis, Sjogren's syndrome and generalized burning and itching. Medications are being adjusted by her primary care team. She has been on chronic medications and does not tolerate many of her medications well.
[2017-02-23 13:49] LABS: ANION GAP 12 MEQ/L (8-16); BLOOD UREA NITROGEN 4 MG/DL (7-18); CARBON DIOXIDE LEVEL 26 MEQ/L (21-32); CHLORIDE LEVEL 79 MEQ/L (98-107); CREATININE FOR GFR 0.68 MG/DL (0.55-1.02); GLOMERULAR FILTRATION RATE > 60.0 (>39); GLUCOSE, FASTING 106 MG/DL (83-110); MAGNESIUM LEVEL 1.9 MG/DL (1.8-2.4); POTASSIUM SERUM 3.5 MEQ/L (3.5-5.1); SODIUM LEVEL 117 MEQ/L (136-145)
[2017-02-23] MEDS ORDERED: KCL 20MEQ in NS 1000ML 1,000 ML IV SCH (14:30)
[2017-02-23] MEDS: oxyCODONE 5MG TAB PO PRN ×2 (15:39→20:46)
[2017-02-23 16:33] LABS: ANION GAP 9 MEQ/L (8-16); BLOOD UREA NITROGEN 5 MG/DL (7-18); CALCIUM LEVEL 8.9 MG/DL (8.8-10.2); CARBON DIOXIDE LEVEL 27 MEQ/L (21-32); CHLORIDE LEVEL 81 MEQ/L (98-107); CREATININE FOR GFR 0.75 MG/DL (0.55-1.02); GLOMERULAR FILTRATION RATE > 60.0 (>39); GLUCOSE, FASTING 121 MG/DL (83-110); POTASSIUM SERUM 4.2 MEQ/L (3.5-5.1); SODIUM LEVEL 117 MEQ/L (136-145)
[2017-02-23] MEDS ORDERED: NS 500 ML IV SCH (20:00)
[2017-02-23] MEDS: cefTRIAXone SOD 2 GM in D5W MINI-BAG PLUS 50 ML IV SCH (20:41)
[2017-02-23] MEDS: LEVOTHYROXINE 25MCG TABLET (0.025MG) PO SCH (20:47)
[2017-02-23] MEDS: OXcarbazepine 150 MG TAB PO SCH (20:47)
[2017-02-23] MEDS: ATORVASTATIN 20 MG TAB PO SCH (20:47)
[2017-02-23 21:10] LABS: ANION GAP 7 MEQ/L (8-16); BLOOD UREA NITROGEN 6 MG/DL (7-18); CARBON DIOXIDE LEVEL 28 MEQ/L (21-32); CHLORIDE LEVEL 86 MEQ/L (98-107); CREATININE FOR GFR 0.86 MG/DL (0.55-1.02); GLOMERULAR FILTRATION RATE > 60.0 (>39); GLUCOSE, FASTING 115 MG/DL (83-110); POTASSIUM SERUM 4.5 MEQ/L (3.5-5.1); SODIUM LEVEL 121 MEQ/L (136-145)
[2017-02-24 00:26] LABS: ANION GAP 9 MEQ/L (8-16); BLOOD UREA NITROGEN 8 MG/DL (7-18); CALCIUM LEVEL 8.8 MG/DL (8.8-10.2); CARBON DIOXIDE LEVEL 26 MEQ/L (21-32); CHLORIDE LEVEL 89 MEQ/L (98-107); CREATININE FOR GFR 0.74 MG/DL (0.55-1.02); GLOMERULAR FILTRATION RATE > 60.0 (>39); GLUCOSE, FASTING 117 MG/DL (83-110); POTASSIUM SERUM 4.6 MEQ/L (3.5-5.1); SODIUM LEVEL 124 MEQ/L (136-145)
[2017-02-24] MEDS ORDERED: SLF 3 ML SYR IV PRN (01:00)
[2017-02-24 04:00] VITALS: BP 184/84
[2017-02-24] MEDS: ISOSORBIDE DIN. (ISORDIL) 20 MG TAB PO SCH ×3 (05:13→21:05)
[2017-02-24] MEDS: oxyCODONE 5MG TAB PO PRN ×3 (05:14→20:07)
[2017-02-24] MEDS: SLF 3 ML SYR IV SCH ×3 (05:15→21:05)
[2017-02-24 08:00] VITALS: BP 120/64
[2017-02-24] MEDS: HEPARIN SOD (PORCINE) 5000 UNITS/ML VIAL SC SCH ×2 (08:42→20:18)
[2017-02-24] MEDS: VITAMIN D (CHOLECALCIFEROL) 400 INTERNATIONAL UNITS TAB PO SCH (08:42)
[2017-02-24] MEDS: LABETALOL 100 MG TAB PO SCH ×2 (08:42→20:05)
[2017-02-24] MEDS: PANTOPRAZOLE 40MG TAB (PROTONIX) PO SCH (08:43)
[2017-02-24] MEDS: predniSONE 10 MG TAB PO SCH (08:43)
[2017-02-24] MEDS: LISINOPRIL 10 MG TAB PO SCH (08:43)
[2017-02-24] MEDS: ONDANSETRON 4MG/2ML VIAL (J2405) IV PRN (08:43)
[2017-02-24] MEDS: VITAMIN B COMPLEX/VIT C CAP PO SCH (08:43)
[2017-02-24] MEDS: POTASSIUM CHLORIDE 10 MEQ SR TABLET PO SCH ×3 (08:44→20:11)
[2017-02-24] MEDS: levETIRAcetam 250MG TABLET (KEPPRA) PO SCH ×2 (08:44→20:11)
[2017-02-24] MEDS: FERROUS SULFATE 325MG TAB PO SCH ×2 (08:45→20:10)
[2017-02-24 08:50] LABS: MEAN CORPUSCULAR HEMOGLOBIN 32.3 pg (27.0-33.0); MEAN CORPUSCULAR HGB CONC 35.5 g/dl (32.0-36.5); MEAN CORPUSCULAR VOLUME 90.8 fl (80.0-96.0); WHITE BLOOD COUNT 10.8 K/mm3 (4.0-10.0)
[2017-02-24 09:44] LABS: ALBUMIN 3.6 GM/DL (3.2-5.2); ANION GAP 10 MEQ/L (8-16); BLOOD UREA NITROGEN 9 MG/DL (7-18); CARBON DIOXIDE LEVEL 26 MEQ/L (21-32); CHLORIDE LEVEL 89 MEQ/L (98-107); CREATININE FOR GFR 0.84 MG/DL (0.55-1.02); GLOMERULAR FILTRATION RATE > 60.0 (>39); GLUCOSE, FASTING 105 MG/DL (83-110); PHOSPHORUS LEVEL 3.1 MG/DL (2.5-4.9); POTASSIUM SERUM 4.5 MEQ/L (3.5-5.1); SODIUM LEVEL 125 MEQ/L (136-145)
--- NOTE | 2017-02-24 11:13 | IPNPDOC ---
Date Seen The patient was seen on 02/24/17. Progress Note Subjective: Ms. Mcdermott appears to be doing better this morning. She does complain of pain everywhere, but states that it is the same as it has always been for years. She is in a better mood, and when I get her off on a tangent about things that takes her mind of the present situation (such as her cat), she is able to roll over in bed and sit up without any grimacing or any apparent distress. Otherwise, she does not have any acute issues that she wishes me to address at this time. Objective: General: Awake, alert, oriented 3. She currently does not appear to be in any physical distress, emotional perhaps. HEENT: Head normocephalic, atraumatic, sclera are nonicteric. Hearing is grossly intact to conversation. No JVD is appreciated Respiratory: Clear to auscultation bilaterally with no wheezes, rales, or rhonchi. Cardiovascular: Regular rate and rhythm, with no rubs, gallops, or murmur. Abdomen: Soft, nontender, nondistended, no hepatosplenomegaly appreciated. Bowel sounds present. Extremities: 2+ pulses in the radial and dorsalis pedis bilaterally. No evidence of clubbing or cyanosis. Assessment: 1. Hyponatremia 2. Acute urinary retention 3. Urinary tract infection 4. Hypertension 5. Hyperlipidemia 6. Rheumatoid arthritis/Sjogren's syndrome 7. Hypothyroidism 8. History of seizures 9. Anemia of chronic disease with concurrent iron deficiency 10. DVT prophylaxis with heparin Plan: She continues to have hyponatremia, and this is being corrected slowly at an appropriate rate. Given that she responded to DDAVP, this is most likely secondary to diabetes insipidus, but this is also complicated by the fact that she is on essentially liquid diet due to her perception of having Sjogren syndrome. Nephrology's input is greatly appreciated, we will continue with the correction of her hyponatremia per their recommendations. We will continue with empiric Rocephin for UTI, and we will continue to check her bladder scans to ensure that she is not retaining urine. Will continue with oxycodone for her pain for now, pain management has been consulted. My preceptor for this patient encounter was physically present in the building during the encounter and was fully available. As needed, all aspects of the patient interview, examination, medical decision making process, and medical care plan development were reviewed and approved by the preceptor. Preceptor is aware and concurs with the plan as stated in the body of this note and will attest to such by his/her cosignature VS, I&O, 24H, Fishbone Vital Signs/I&O Vital Signs Date Time Temp Pulse Resp B/P (MAP) Pulse Ox O2 Delivery O2 Flow Rate FiO2 02/24/17 08:43 120/64 02/24/17 08:42 92 02/24/17 08:00 100.2 20 97 Room Air 02/23/17 02:35 2.0 I&O- Last 24 Hours up to 6 AM 02/24/17 06:00 Intake Total 2390 ml Output Total 2300 ml Balance 90 ml Laboratory Data 24H LABS Laboratory Tests 2 02/23/17 12:33: Anion Gap 12, Glomerular Filtration Rate > 60.0, Blood Urea Nitrogen 4L, Creatinine 0.68, Sodium Level 117*L, Potassium Level 3.5, Chloride Level 79L, Carbon Dioxide Level 26, Calcium Level 9.0, Magnesium Level 1.9 02/23/17 16:07: Anion Gap 9, Glomerular Filtration Rate > 60.0, Blood Urea Nitrogen 5L, Creatinine 0.75, Sodium Level 117*L, Potassium Level 4.2, Chloride Level 81L, Carbon Dioxide Level 27, Calcium Level 8.9 02/23/17 19:57: Anion Gap 7L, Glomerular Filtration Rate > 60.0, Blood Urea Nitrogen 6L, Creatinine 0.86, Sodium Level 121L, Potassium Level 4.5, Chloride Level 86L, Carbon Dioxide Level 28, Calcium Level 9.0 02/23/17 23:53: Anion Gap 9, Glomerular Filtration Rate > 60.0, Blood Urea Nitrogen 8, Creatinine 0.74, Sodium Level 124L, Potassium Level 4.6, Chloride Level 89L, Carbon Dioxide Level 26, Calcium Level 8.8 02/24/17 07:58: Blood Urea Nitrogen 9, Creatinine 0.84, Sodium Level 125L, Potassium Level 4.5, Chloride Level 89L, Carbon Dioxide Level 26, Anion Gap 10, Glomerular Filtration Rate > 60.0, Calcium Level 9.0, Phosphorus Level 3.1, Albumin 3.6 CBC/BMP Laboratory Tests 02/23/17 12:33 Calcium Level 9.0 02/23/17 16:07 Calcium Level 8.9 02/23/17 19:57 Calcium Level 9.0 02/23/17 23:53 Calcium Level 8.8 02/24/17 07:58 Red Blood Count 3.39 L, Mean Corpuscular Volume 90.8, Mean Corpuscular Hemoglobin 32.3, Mean Corpuscular Hemoglobin Concent 35.5, Red Cell Distribution Width 13.0, Anion Gap 10 Microbiology Microbiology 02/20/17 Urine Culture - Final, Complete Enterobacter Cloacae Complex GME ATTESTATION GME ATTESTATION My preceptor for this patient encounter was physically present in the building during the encounter and was fully available. As needed, all aspects of the patient interview, examination, medical decision making process, and medical care plan development were reviewed and approved by the preceptor. Preceptor is aware and concurs with the plan as stated in the body of this note and will attest to such by his/her cosignature. ATTENDING NOTE I have both independently examined this patient as well as reviewed the note. I have discussed in detail with the resident the findings and plan of treatment as documented in the residents note. I will continue to follow the patient and offer further guidance to the patients care as necessary during this hospital stay. CHYNA Santo MD, DO Feb 24, 2017 11:13 YANELY CLARKE MD Feb 24, 2017 15:49
[2017-02-24 12:00] VITALS: BP 110/94
[2017-02-24 12:50] LABS: ANION GAP 8 MEQ/L (8-16); BLOOD UREA NITROGEN 10 MG/DL (7-18); CALCIUM LEVEL 9.3 MG/DL (8.8-10.2); CARBON DIOXIDE LEVEL 26 MEQ/L (21-32); CHLORIDE LEVEL 87 MEQ/L (98-107); CREATININE FOR GFR 0.93 MG/DL (0.55-1.02); GLOMERULAR FILTRATION RATE > 60.0 (>39); GLUCOSE, FASTING 121 MG/DL (83-110); POTASSIUM SERUM 4.6 MEQ/L (3.5-5.1); SODIUM LEVEL 121 MEQ/L (136-145)
--- NOTE | 2017-02-24 13:05 | REP ---
FARRUKHIE SWALLOW: The procedure was performed under the direct supervision of Dr. Mojica. The procedure was performed with Aditi Riley from speech pathology present. 5 mL aliquots of nectar, pudding, and thin consistency barium was administered. There is no evidence of penetration or aspiration. A detailed report of this examination will be provided by speech pathology. 29 seconds of fluoroscopy time was utilized for this procedure. Reviewed by HITESH Al 02/24/2017 03:34 PEdited and Signed by Ben Mojica MD 02/24/2017 04:41 P
[2017-02-24 16:00] VITALS: BP 121/81
[2017-02-24 16:16] LABS: CALCIUM LEVEL 8.5 MG/DL (8.8-10.2); CREATININE FOR GFR 0.98 MG/DL (0.55-1.02); GLOMERULAR FILTRATION RATE 59.4 (>39); POTASSIUM SERUM 4.5 MEQ/L (3.5-5.1)
--- NOTE | 2017-02-24 17:27 | IPN ---
DATE: 02/24/2017 Mrs. Moore is seen this morning on her bedside. She reports feeling better today. She denies any vomiting. However, did feel nauseated. She was able to drink her Ensure and fluid. She denies any abdominal pain or diarrhea. There is no dyspnea or chest pain. She feels that her body pains, aches, itching and burning sensation is slightly better today. PHYSICAL EXAMINATION: Temperature 100.2 degrees Fahrenheit, heart rate 92 per minute and respiratory rate 20 per minute. Blood pressure 120/64 mmHg and oxygen saturation 97% on room air. Head: Is atraumatic. Neck is supple and without jugular venous distention (JVD) or thyroid enlargement. Ears, nose and throat are unremarkable. Heart: Sounds are regular and lungs clear to auscultation. Abdomen: Soft and nontender. Bowel sounds are normal. Extremities have no cyanosis or clubbing. Skin has no rash or ulcers. Neurologically she is awake, alert and oriented times three. Today's labs show sodium level 124, potassium 4.6, chloride 89, CO2 26, BUN 8, and creatinine 0.74. Last evening her sodium level went down to 117 and she was given normal saline 500 mL with improvement in her sodium level, up to 141 last evening and then up to 124 this morning. Most recent sodium is up to 125 and potassium is 4.5 at 08:00 a.m. today. PROBLEMS: 1. Hyponatremia, probably related to acute nausea and vomiting in addition to a dose of DDAVP given 2 days ago. Her sodium level is now gradually improving, which is appropriate. Her symptoms have also improved now and she is not vomiting anymore. We anticipate gradual improvement in her sodium level in next 24 hours. At present, she will remain on regular diet and no diuretic or other intervention. She is not receiving any IV fluid. Electrolytes are being monitored every 4 hours. Yesterday, her urine output was only 3000 mL without any DDAVP. It remains to be seen how she does today. 2. Severe peripheral neuropathy. This is a chronic issue and she is being treated with gabapentin. 3. Recurrent nausea and vomiting. She is being treated symptomatically and has improved today.
--- NOTE | 2017-02-24 18:46 | CR.PDOC ---
[facility] Pain Clinic Consultation General Date of Consultation: 02/24/17 Consultation Report For: YANELY CLARKE MD Chief Complaint The patient is a 71-year-old female admitted with a reason for visit of Hyponatremia. Pain management is asked to see for further evaluation of lower extremity pain History of Present Illness Codi Mcdermott is a 71-year-old female who was admitted on 02/21/2017 with altered mental status, history of seizure and was found to be significantly hyponatremic. Following admission, Ms. Mcdermott began complaining of cramping throughout her body and burning pain in her lower extremities. She reports that she has followed by [facility] rheumatology in [place] with a diagnosis of rheumatoid arthritis and sjorgens syndrome. She states this diagnosis was based on her dry eyes, dryness of the GI tract, and neuropathic changes to the lower extremities. She also reports that she has a history of significant iron deficiency and was receiving iron infusions through [facility] oncology services. She also has a history of colon cancer and is currently being followed by Dr. Ross at [facility] oncology services. They had continued her with Percocet 5/325 one every 4-6 hours maximum of 4 tablets per day. She had used approximately 60 tablets per month for the last several months. Her [facility] I stop was reviewed. Currently, she reports she is having intermittent but severe cramping of all of her muscles. Also notes an internal fiery burning sensation in the lower legs, which she attributes to the Sjorgens syndrome. She reports that the current Percocet or oxycodone, which she is receiving does diminish her pain by at least 50-60%. She reports she has been tried on multiple neuropathy pain medications in the past including Lyrica, gabapentin, Cymbalta and amitriptyline as well as many muscle relaxers and has had no relief. Home Medications Scheduled Atorvastatin Calcium (Atorvastatin Calcium) 40 Mg Tab, 40 MG PO QHS, (Reported) B1/B2/B3/B5/B6 (Vitamin B Complex) 1 Tab Tab, 1 TAB PO DAILY, (Reported) Cholecalciferol (Vitamin D) 400 Unit Tab, 400 UNIT PO DAILY, (Reported) Ferrous Sulfate (Ferrous Sulfate) 325 Mg Tab, 325 MG PO BID, (Reported) Labetalol HCl (Labetalol HCl) 100 Mg Tab, 50 MG PO BID, (Reported) Levetiracetam (Keppra) 500 Mg Tab, 500 MG PO BID, (Reported) Levothyroxine Sodium (Synthroid) 25 Mcg Tab, 25 MCG PO QHS, (Reported) Lisinopril (Lisinopril) 10 Mg Tab, 10 MG PO DAILY, (Reported) Oxcarbazepine (Oxcarbazepine) 150 Mg Tab, 150 MG PO QHS, (Reported) Pantoprazole Sodium (Pantoprazole Sodium) 40 Mg Tab, 40 MG PO DAILY, (Reported) Prednisone (Prednisone) 10 Mg Tab, 10 MG PO DAILY, (Reported) Scheduled PRN (Nitroglycerin Lingual) 0.4 Mg/[place] Spr, 0.4 MG SL NITRO PRN for CHEST PAIN, ( Reported) (Restasis) 0.05 % Emu, 1 DROP OU BID PRN for DRY EYES, (Reported) Albuterol Sulfate (Ventolin Hfa) 200 Puff/8 Gm Aers, 1 PUFF INH Q4H PRN for SHORTNESS OF BREATH, (Reported) Diphenoxylate/Atropine (Lomotil 2.5-0.025 mg) 1 Tab Tab, 1 TAB PO TID PRN for DIARRHEA, (Reported) Oxycodone/Acetaminophen (Percocet 5-325 mg) 1 Tab Tab, 1 TAB PO Q6H PRN for PAIN , (Reported) Allergies Coded Allergies: Hydroxychloroquine (Unverified Allergy, Severe, ANAPHYLAXIS, 02/20/17) BUTTS (Verified Allergy, Intermediate, GERANIUM=SWELLING, 06/03/11) Rofecoxib (Verified Allergy, Intermediate, VOMITING, INCREASED BP, 11/22/12) Iodine (Verified Allergy, Mild, ITCHING, 11/22/12) Contrast Media (Verified Allergy, Unknown, 06/04/08) Flu Virus Vaccine (Verified Allergy, Unknown, 11/22/12) Pregabalin (Verified Adverse Reaction, Mild, INSOMNIA, 11/22/12) Past Medical History Medical History Past medical history significant for hypertension, coronary artery disease, ulcerative colitis, rheumatoid arthritis. Surgeon syndrome, seizure disorder, history of hyponatremia, history of spinal stenosis, history of colon cancer, status post sigmoid resection, Lita fibromyalgia, history of COPD, history of hypothyroidism, coronary artery disease and hyperlipidemia Social History Social History Denies tobacco, alcohol, or illicit substance abuse. Review of Systems Subjective HEENT: Reports: head aches (intermittent generalized headache) Skin: Denies: lesions, rash, breakdown Pulmonary: Denies: cough, dyspnea Cardiovascular: Denies: chest pain, edema, palpitations Gastrointestinal: Reports: constipation (states last bowel movement was several days ago. Does have history of irritable bowel symptoms with alternating diarrhea and constipation. Reports uses a stool softener as needed.) , Denies: loss of bowel control Genitourinary: Reports: other (urinary tract infection and is currently on antibiotics), Denies: dysuria, hematuria, loss of bladder control Hematologic: Reports: anemia (history of anemia secondary to iron deficiency. History of requiring iron infusions.), Denies: blood dyscrasias Endocrine: Denies: Diabetes mellitus Musculoskeletal: Reports: leg pain (Notes significant burning sensation all from the feet and the thighs.), muscle pain, spasms, muscle stiffness Neurological: Reports: numbness (and paresthesias noted in bilateral lower extremities.), seizures (history of seizures), Denies: tremors, weakness, migraines Psych: Reports: mood normal, Denies: thoughts of self harm, thoughts of harming other Physical Examination Physical Examination Vital Signs/I&O Vital Signs Date Time Temp Pulse Resp B/P (MAP) Pulse Ox O2 Delivery O2 Flow Rate FiO2 02/24/17 16:00 98.4 66 18 121/81 (94) 95 Room Air 02/23/17 02:35 2.0 I&O- Last 24 Hours up to 6 AM 02/24/17 06:00 Intake Total 2390 ml Output Total 2300 ml Balance 90 ml General Exam: Positive: alert, attentive, talkative, no acute distress, oriented times three Visual Analog Score (VAS): 5 Neck Exam: Negative: Lymphadenopathy, Thyromegaly Chest Exam: Positive: Clear to auscultation, Negative: Wheezing, Rales Heart Exam: Positive: Regular rate and rhythm, Normal S1, S2, Negative: Murmurs, Rubs Abdominal Exam: Positive: Normal bowel sounds, Soft, Nondistended Extremity Exam: Positive: Normal pulses, Negative: Edema Skin Exam: Positive: Warm, Dry, Negative: Rashes, Lesions Neuro Exam: Positive: Normal Tone, Other (patchy paresthesias noted over bilateral lower extremities) Psych Exam: Positive: Mental status NL, Mood NL Inspection of spine Point tenderness over lumbar spinous processes and across the lumbosacral axis. No specific sacroiliac joint tenderness. Some weakness noted with flexion at laterally at the quads and with flexion and extension him at the ankle. Gait is not tested at this time. Laboratory Data Labs 24H Laboratory Tests 2 02/23/17 19:57: Anion Gap 7L, Glomerular Filtration Rate > 60.0, Blood Urea Nitrogen 6L, Creatinine 0.86, Sodium Level 121L, Potassium Level 4.5, Chloride Level 86L, Carbon Dioxide Level 28, Calcium Level 9.0 02/23/17 23:53: Anion Gap 9, Glomerular Filtration Rate > 60.0, Blood Urea Nitrogen 8, Creatinine 0.74, Sodium Level 124L, Potassium Level 4.6, Chloride Level 89L, Carbon Dioxide Level 26, Calcium Level 8.8 02/24/17 07:58: Anion Gap 10, Glomerular Filtration Rate > 60.0, Blood Urea Nitrogen 9, Creatinine 0.84, Sodium Level 125L, Potassium Level 4.5, Chloride Level 89L, Carbon Dioxide Level 26, Calcium Level 9.0, Phosphorus Level 3.1, Albumin 3.6 02/24/17 12:18: Anion Gap 8, Glomerular Filtration Rate > 60.0, Blood Urea Nitrogen 10, Creatinine 0.93, Sodium Level 121L, Potassium Level 4.6, Chloride Level 87L, Carbon Dioxide Level 26, Calcium Level 9.3 02/24/17 15:45: Anion Gap 8, Glomerular Filtration Rate 59.4, Blood Urea Nitrogen 14, Creatinine 0.98, Sodium Level 121L, Potassium Level 4.5, Chloride Level 88L, Carbon Dioxide Level 25, Calcium Level 8.5L CBC/BMP Laboratory Tests 02/23/17 19:57 Calcium Level 9.0 02/23/17 23:53 Calcium Level 8.8 02/24/17 07:58 Red Blood Count 3.39 L, Mean Corpuscular Volume 90.8, Mean Corpuscular Hemoglobin 32.3, Mean Corpuscular Hemoglobin Concent 35.5, Red Cell Distribution Width 13.0, Anion Gap 10 02/24/17 12:18 Calcium Level 9.3 02/24/17 15:45 Calcium Level 8.5 L Diagnostic and Imaging Studies MRI of lumbar spine was completed on 05/05/2016. This does demonstrate at L5-S1 , left posterior disc herniation effacing the left ventral lateral margin of the thecal sac and compressing the S1 root. This has increased since her last exam. There is a small but new left lateral L3 disc compression contacting the adjacent extradural L3 root. There is no evidence of compression of the conus or cauda equina. There is mild facet hypertrophy and ligamentum flavum hypertrophy bilaterally at L3-4. There is ligamentum flavum and facet hypertrophy hypertrophy also noted at L4-5 and at L5-S1. Assessment 1. Chronic low back pain. 2. Lumbar disc displacement without myelopathy. 3. History of Sjogren's syndrome with neuropathic changes to the lower extremities Recommendation and Plan Patient reports that she is receiving adequate pain relief with her currently ordered medications. At this time with her current issue with a urinary tract infection requiring antibiotics and her current hyponatremia would not looking doing any interventional treatments. She reports that she is being evaluated for a lumbar surgery in [place]. She is discharged from the hospital. Would recommend that she follow up with this. She reports adverse reactions to all of the usual suspects in terms of neuropathic pain medications. Medication such as gabapentin and Lyrica can cause hyponatremia. She reports she had been receiving iron infusions and I am not certain where she is with this. At this time would recommend continuation of her Percocet/oxycodone. She should follow- up with Dr. Ross who has been previously prescribing her pain medications after discharge. Would recommend activity such as ambulation about the unit as she is able. I would anticipate that her muscle cramping will resolve as the hyponatremia slowly comes under better control. Thank you , for allowing us to participate in the care of your patient, Codi Mcdermott. Should you have any questions we will be glad to discuss this with you at any time please contact us here at the pain center at [phone]. [facility] Feb 24, 2017 18:46
[2017-02-24 20:00] VITALS: BP 117/59
[2017-02-24] MEDS: OXcarbazepine 150 MG TAB PO SCH (20:10)
[2017-02-24] MEDS: ATORVASTATIN 20 MG TAB PO SCH (20:11)
[2017-02-24] MEDS: LEVOTHYROXINE 25MCG TABLET (0.025MG) PO SCH (20:11)
[2017-02-24] MEDS: cefTRIAXone SOD 2 GM in D5W MINI-BAG PLUS 50 ML IV SCH (20:13)
[2017-02-24 20:24] LABS: ANION GAP 7 MEQ/L (8-16); BLOOD UREA NITROGEN 16 MG/DL (7-18); CARBON DIOXIDE LEVEL 27 MEQ/L (21-32); CHLORIDE LEVEL 91 MEQ/L (98-107); CREATININE FOR GFR 0.93 MG/DL (0.55-1.02); GLOMERULAR FILTRATION RATE > 60.0 (>39); GLUCOSE, FASTING 132 MG/DL (83-110); POTASSIUM SERUM 4.4 MEQ/L (3.5-5.1); SODIUM LEVEL 125 MEQ/L (136-145)
[2017-02-24 21:26] LABS: OSMOLALITY URINE 114 MOSM/KG (500-800)
[2017-02-24 23:59] VITALS: BP 126/57
[2017-02-25 01:07] LABS: ANION GAP 7 MEQ/L (8-16); BLOOD UREA NITROGEN 17 MG/DL (7-18); CALCIUM LEVEL 8.8 MG/DL (8.8-10.2); CARBON DIOXIDE LEVEL 26 MEQ/L (21-32); CHLORIDE LEVEL 92 MEQ/L (98-107); CREATININE FOR GFR 0.84 MG/DL (0.55-1.02); GLOMERULAR FILTRATION RATE > 60.0 (>39); GLUCOSE, FASTING 96 MG/DL (83-110); POTASSIUM SERUM 5.1 MEQ/L (3.5-5.1); SODIUM LEVEL 125 MEQ/L (136-145)
[2017-02-25] MEDS: oxyCODONE 5MG TAB PO PRN ×2 (03:58→23:22)
[2017-02-25 04:18] LABS: MEAN CORPUSCULAR HEMOGLOBIN 32.6 pg (27.0-33.0); MEAN CORPUSCULAR HGB CONC 35.9 g/dl (32.0-36.5); RED CELL DISTRIBUTION WIDTH 13.6 % (11.5-14.5); WHITE BLOOD COUNT 9.4 K/mm3 (4.0-10.0)
[2017-02-25 04:29] LABS: ALBUMIN 3.4 GM/DL (3.2-5.2); ANION GAP 9 MEQ/L (8-16); BLOOD UREA NITROGEN 15 MG/DL (7-18); CALCIUM LEVEL 8.9 MG/DL (8.8-10.2); CARBON DIOXIDE LEVEL 25 MEQ/L (21-32); CHLORIDE LEVEL 92 MEQ/L (98-107); GLOMERULAR FILTRATION RATE > 60.0 (>39); GLUCOSE, FASTING 97 MG/DL (83-110); POTASSIUM SERUM 4.7 MEQ/L (3.5-5.1); SODIUM LEVEL 126 MEQ/L (136-145)
[2017-02-25 04:45] VITALS: BP 119/58
[2017-02-25] MEDS: ISOSORBIDE DIN. (ISORDIL) 20 MG TAB PO SCH ×3 (05:51→22:04)
[2017-02-25] MEDS: SLF 3 ML SYR IV SCH ×3 (05:51→22:05)
[2017-02-25 08:00] VITALS: BP 99/55
[2017-02-25] MEDS: VITAMIN D (CHOLECALCIFEROL) 400 INTERNATIONAL UNITS TAB PO SCH (09:02)
[2017-02-25] MEDS: VITAMIN B COMPLEX/VIT C CAP PO SCH (09:02)
[2017-02-25] MEDS: POTASSIUM CHLORIDE 10 MEQ SR TABLET PO SCH (09:02)
[2017-02-25] MEDS: FERROUS SULFATE 325MG TAB PO SCH ×2 (09:02→20:25)
[2017-02-25] MEDS: PANTOPRAZOLE 40MG TAB (PROTONIX) PO SCH (09:02)
[2017-02-25] MEDS: levETIRAcetam 250MG TABLET (KEPPRA) PO SCH ×2 (09:02→20:24)
[2017-02-25] MEDS: predniSONE 10 MG TAB PO SCH (09:03)
[2017-02-25] MEDS: HEPARIN SOD (PORCINE) 5000 UNITS/ML VIAL SC SCH ×2 (09:04→20:29)
[2017-02-25] MEDS: LISINOPRIL 10 MG TAB PO SCH (09:06)
[2017-02-25] MEDS: LABETALOL 100 MG TAB PO SCH ×2 (09:07→20:29)
[2017-02-25 12:00] VITALS: BP 109/54
--- NOTE | 2017-02-25 12:06 | IPNPDOC ---
Date Seen The patient was seen on 02/25/17. Progress Note Subjective: Ms. Mcdermott is in a better mood this morning. She does not complain of any pain or burning on her insides today, which appears to be an improvement. When informed her that the blood work from [facility] does not indicate Sjogren's, she adamantly refused to believe it stating "well they must be telling you something different than what they're telling me, because they tell me I have Sjogren's". We will try to verify this with the physician in [place]. Otherwise, she has no additional specific complaints that she wishes to be addressed today. Objective: General: Awake, alert, oriented 3. HEENT: Head normocephalic, atraumatic, sclera are nonicteric. Respiratory: Clear to auscultation bilaterally with no wheezes, rales, or rhonchi. Cardiovascular: Regular rate and rhythm, with no rubs, gallops, or murmur. Abdomen: Soft, nontender, nondistended, no hepatosplenomegaly appreciated. Bowel sounds present. Extremities: 2+ pulses in the radial and dorsalis pedis bilaterally. No evidence of clubbing or cyanosis. Assessment: 1. Hyponatremia 2. Acute urinary retention 3. Urinary tract infection 4. Hypertension 5. Hyperlipidemia 6. Rheumatoid arthritis/Sjogren's syndrome 7. Hypothyroidism 8. History of seizures 9. Anemia of chronic disease with concurrent iron deficiency 10. DVT prophylaxis with heparin Plan: Her hyponatremia is resolving and a slow controlled rate. Her urinary output also appears to be slowing down somewhat. She refused to complete a barium swallow evaluation, therefore she will be put on a pureed diet. After review of the notes from [facility], it appears that a diagnostic workup for Sjogren' s syndrome was negative, we will attempt to contact this doctor for further clarification as to whether or not she actually has Sjogren syndrome. We will also consult ENT for their opinion if there are any additional options we may be able to pursue to help this woman to be able to eat. We appreciate the input from pain management, we'll continue with the oxycodone for her pain management, she does appear to be doing better. We will also continue with the empiric antibiotics for her UTI. My preceptor for this patient encounter was physically present in the building during the encounter and was fully available. As needed, all aspects of the patient interview, examination, medical decision making process, and medical care plan development were reviewed and approved by the preceptor. Preceptor is aware and concurs with the plan as stated in the body of this note and will attest to such by his/her cosignature VS, I&O, 24H, Fishbone Vital Signs/I&O Vital Signs Date Time Temp Pulse Resp B/P (MAP) Pulse Ox O2 Delivery O2 Flow Rate FiO2 02/25/17 09:07 80 02/25/17 09:06 130/70 02/25/17 08:00 98.1 18 98 Room Air 02/23/17 02:35 2.0 I&O- Last 24 Hours up to 6 AM 02/25/17 05:59 Intake Total 1890 ml Output Total 1450 ml Balance 440 ml Laboratory Data 24H LABS Laboratory Tests 2 02/24/17 12:18: Anion Gap 8, Glomerular Filtration Rate > 60.0, Blood Urea Nitrogen 10, Creatinine 0.93, Sodium Level 121L, Potassium Level 4.6, Chloride Level 87L, Carbon Dioxide Level 26, Calcium Level 9.3 02/24/17 15:45: Anion Gap 8, Glomerular Filtration Rate 59.4, Blood Urea Nitrogen 14, Creatinine 0.98, Sodium Level 121L, Potassium Level 4.5, Chloride Level 88L, Carbon Dioxide Level 25, Calcium Level 8.5L 02/24/17 19:55: Anion Gap 7L, Glomerular Filtration Rate > 60.0, Blood Urea Nitrogen 16, Creatinine 0.93, Sodium Level 125L, Potassium Level 4.4, Chloride Level 91L, Carbon Dioxide Level 27, Calcium Level 9.0 02/25/17 00:07: Anion Gap 7L, Glomerular Filtration Rate > 60.0, Blood Urea Nitrogen 17, Creatinine 0.84, Sodium Level 125L, Potassium Level 5.1, Chloride Level 92L, Carbon Dioxide Level 26, Calcium Level 8.8 02/25/17 03:56: Blood Urea Nitrogen 15, Creatinine 0.80, Sodium Level 126L, Potassium Level 4.7 , Chloride Level 92L, Carbon Dioxide Level 25, Anion Gap 9, Glomerular Filtration Rate > 60.0, Calcium Level 8.9, Phosphorus Level 3.0, Albumin 3.4 02/25/17 08:13: CBC/BMP Laboratory Tests 02/24/17 12:18 Calcium Level 9.3 02/24/17 15:45 Calcium Level 8.5 L 02/24/17 19:55 Calcium Level 9.0 02/25/17 00:07 Calcium Level 8.8 02/25/17 03:56 Red Blood Count 3.13 L, Mean Corpuscular Volume 91.0, Mean Corpuscular Hemoglobin 32.6, Mean Corpuscular Hemoglobin Concent 35.9, Red Cell Distribution Width 13.6, Anion Gap 9 Microbiology Microbiology 02/20/17 Urine Culture - Final, Complete Enterobacter Cloacae Complex GME ATTESTATION GME ATTESTATION My preceptor for this patient encounter was physically present in the building during the encounter and was fully available. As needed, all aspects of the patient interview, examination, medical decision making process, and medical care plan development were reviewed and approved by the preceptor. Preceptor is aware and concurs with the plan as stated in the body of this note and will attest to such by his/her cosignature. ATTENDING NOTE I have both independently examined this patient as well as reviewed the note. I have discussed in detail with the resident the findings and plan of treatment as documented in the residents note. I will continue to follow the patient and offer further guidance to the patients care as necessary during this hospital stay. CHYNA Santo MD, DO Feb 25, 2017 12:05 YANELY CLARKE MD Feb 26, 2017 06:50
[2017-02-25 16:00] VITALS: BP 117/62
[2017-02-25] MEDS ORDERED: SENOKOT S TAB PO PRN (16:30)
[2017-02-25] MEDS: DOCUSATE SODIUM 100 MG CAP PO PRN (18:47)
[2017-02-25 20:23] VITALS: BP 123/58
[2017-02-25] MEDS: cefTRIAXone SOD 2 GM in D5W MINI-BAG PLUS 50 ML IV SCH (20:24)
[2017-02-25] MEDS: ATORVASTATIN 20 MG TAB PO SCH (20:24)
[2017-02-25] MEDS: LEVOTHYROXINE 25MCG TABLET (0.025MG) PO SCH (20:25)
[2017-02-25] MEDS: OXcarbazepine 150 MG TAB PO SCH (20:29)
--- NOTE | 2017-02-25 21:44 | IPN ---
DATE: 02/25/2017 SUBJECTIVE: The patient was seen and examined at the bedside today in the morning. She is awake and alert. She is complaining of a burning sensation in her peripheries. Otherwise, her sodium level is improving. It is up to 126 now. She is hemodynamically stable. REVIEW OF SYSTEMS: The patient denies any fevers, chills, rigors, headaches, nausea, vomiting, chest pain or shortness of breath. She does report some abdominal tenderness, and she does report a burning sensation because of history of peripheral neuropathy. Rest of review of systems is negative. OBJECTIVE: VITAL SIGNS: Temperature is 97.8 degrees Fahrenheit, blood pressure is 109/54, pulse is 83, respiratory rate of 18, saturating 96% on room air. INTAKE AND OUTPUT: Urine output recorded as two liters yesterday, 250 mL so far today since overnight. Weight in the bed scale is 63.1 kg. PHYSICAL EXAMINATION: GENERAL: The patient is awake, alert, oriented times three, lying in bed in no apparent distress. HEAD/NECK: Extraocular muscles intact. Pupils equal, round, and reactive to light. Mucous membranes are moist. Neck is supple. The patient has a surgical scar in front of the neck. CARDIOVASCULAR: S1, S2. Regular rate. No murmur, rub, or gallop. RESPIRATORY: Chest is clear to auscultation bilaterally. Bilateral equal air entry. No rales or rhonchi. ABDOMEN: Soft, positive bowel sounds. Mild tenderness in the right lower quadrant. No ascites. MUSCULOSKELETAL: No edema of the extremities. Pulses are 2+. CENTRAL NERVOUS SYSTEM (RESIDENTIAL MANAGER): No focal neurological deficit. Power is 5/5 in all extremities. LABORATORY DATA: CBC showed a WBC of 9.4, hemoglobin 10.2, platelets at 301. BMP showed sodium 126, potassium 4.7, chloride 92, bicarbonate 25, BUN 15, creatinine 0.8. Urine osmolarity done yesterday was 114, and urine sodium was 15. IMAGING: Cookie-swallow testing for dysphagia was done yesterday. There was no evidence of penetration or aspiration. CURRENT INPATIENT MEDICATIONS: The patient's medications were all reviewed by me. There is no change in the medications today as compared with yesterday. I am going to stop the patient's potassium supplementation at this time. ASSESSMENT: A 71-year-old female with past medical history of severe peripheral neuropathy, history of colon resection in the past, nephrology service following the patient for hyponatremia. PLAN: 1. Hyponatremia: The patient's sodium level is slowly improving. It is up to 126 right now. She has a good urine output. Urine random osmolarity done yesterday was appropriately low. The patient's sodium level is expected to improve without any medication intervention at this time. Continue to monitor basic metabolic profile (BMP) at eight hourly at this time. There is no need of salt tablet, Lasix, or Samsca administration. Continue to monitor 24-hour intake and output. I have ordered another level of a.m. cortisol which is pending at this time. Thyroid stimulating hormone (TSH) level was normal and patient is euvolemic at this time. 2. Enterobacter cloacae urinary tract infection: It is sensitive to ceftriaxone. Continue current dose of ceftriaxone intravenous (IV). Last dose will be on March 01, 2017. 3. Hypertension: Blood pressure is acceptable at this time. Continue current dose of labetalol 50 mg by mouth twice a day, isosorbide 20 mg by mouth every eight hours, and lisinopril 10 mg by mouth daily. Plan of care was discussed with the hospitalist, Dr. Sangeetha Scott.
[2017-02-25 23:59] VITALS: BP 114/54
[2017-02-26 05:20] VITALS: BP 141/72
[2017-02-26] MEDS: ISOSORBIDE DIN. (ISORDIL) 20 MG TAB PO SCH ×3 (05:29→23:00)
[2017-02-26] MEDS: SLF 3 ML SYR IV SCH ×3 (05:30→23:01)
[2017-02-26 05:33] LABS: MEAN CORPUSCULAR HEMOGLOBIN 32.2 pg (27.0-33.0); MEAN CORPUSCULAR HGB CONC 34.9 g/dl (32.0-36.5); MEAN CORPUSCULAR VOLUME 92.4 fl (80.0-96.0); RED CELL DISTRIBUTION WIDTH 13.7 % (11.5-14.5); WHITE BLOOD COUNT 10.3 K/mm3 (4.0-10.0)
[2017-02-26 06:01] LABS: ALBUMIN 3.4 GM/DL (3.2-5.2); ANION GAP 7 MEQ/L (8-16); BLOOD UREA NITROGEN 16 MG/DL (7-18); CALCIUM LEVEL 8.9 MG/DL (8.8-10.2); CARBON DIOXIDE LEVEL 28 MEQ/L (21-32); CHLORIDE LEVEL 91 MEQ/L (98-107); CREATININE FOR GFR 0.83 MG/DL (0.55-1.02); GLOMERULAR FILTRATION RATE > 60.0 (>39); GLUCOSE, FASTING 93 MG/DL (83-110); PHOSPHORUS LEVEL 4.2 MG/DL (2.5-4.9); POTASSIUM SERUM 4.8 MEQ/L (3.5-5.1); SODIUM LEVEL 126 MEQ/L (136-145)
[2017-02-26 08:00] VITALS: BP 110/53
[2017-02-26] MEDS: VITAMIN B COMPLEX/VIT C CAP PO SCH (08:17)
[2017-02-26] MEDS: VITAMIN D (CHOLECALCIFEROL) 400 INTERNATIONAL UNITS TAB PO SCH (08:17)
[2017-02-26] MEDS: LABETALOL 100 MG TAB PO SCH ×2 (08:17→21:08)
[2017-02-26] MEDS: levETIRAcetam 250MG TABLET (KEPPRA) PO SCH ×2 (08:17→20:55)
[2017-02-26] MEDS: FERROUS SULFATE 325MG TAB PO SCH ×2 (08:17→20:55)
[2017-02-26] MEDS: predniSONE 10 MG TAB PO SCH (08:17)
[2017-02-26] MEDS: LISINOPRIL 10 MG TAB PO SCH (08:18)
[2017-02-26] MEDS: PANTOPRAZOLE 40MG TAB (PROTONIX) PO SCH (08:18)
[2017-02-26] MEDS: oxyCODONE 5MG TAB PO PRN ×3 (08:18→23:04)
[2017-02-26] MEDS: HEPARIN SOD (PORCINE) 5000 UNITS/ML VIAL SC SCH ×2 (08:19→20:55)
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
[2017-02-26 12:00] VITALS: BP 100/59
[2017-02-26] MEDS ORDERED: TOLVAPTAN 15 MG TAB (SAMSCA) PO ONE (13:00)
[2017-02-26 13:21] LABS: ANION GAP 7 MEQ/L (8-16); BLOOD UREA NITROGEN 16 MG/DL (7-18); CARBON DIOXIDE LEVEL 31 MEQ/L (21-32); CHLORIDE LEVEL 88 MEQ/L (98-107); CREATININE FOR GFR 0.86 MG/DL (0.55-1.02); GLOMERULAR FILTRATION RATE > 60.0 (>39); GLUCOSE, FASTING 102 MG/DL (83-110); POTASSIUM SERUM 4.2 MEQ/L (3.5-5.1); SODIUM LEVEL 126 MEQ/L (136-145)
[2017-02-26 16:00] VITALS: BP 116/55
[2017-02-26] MEDS: ONDANSETRON 4MG/2ML VIAL (J2405) IV PRN (16:34)
[2017-02-26 19:36] VITALS: BP 100/55
[2017-02-26 19:45] VITALS: BP 112/52
[2017-02-26] MEDS: OXcarbazepine 150 MG TAB PO SCH (20:55)
[2017-02-26] MEDS: ATORVASTATIN 20 MG TAB PO SCH (20:55)
[2017-02-26] MEDS: cefTRIAXone SOD 2 GM in D5W MINI-BAG PLUS 50 ML IV SCH (20:55)
[2017-02-26] MEDS: LEVOTHYROXINE 25MCG TABLET (0.025MG) PO SCH (20:55)
--- NOTE | 2017-02-26 22:05 | IPN ---
DATE: 02/26/2017 SUBJECTIVE: The patient was seen and examined at the bedside today in the morning. She was sitting in the bed, no apparent distress. I was told by the nursing staff that patient has been taking a lot of fluids. She has been placed on three-liter fluid restriction. Sodium level is stable today at 126. REVIEW OF SYSTEMS: The patient denies any fevers, chills, rigors, headaches, nausea, vomiting, chest pain or shortness of breath. She still reports burning in the extremities because of peripheral neuropathy. Rest of review of systems is negative. OBJECTIVE: VITAL SIGNS: Temperature is 98 degrees Fahrenheit. Blood pressure is 100/59, pulse is 69, respiratory rate 18, saturating 97% on room air. INTAKE AND OUTPUT: Urine output recorded as one liter. She was 800 mL positive yesterday. There is no urine output recorded so far today. Weight in the bed scale is 63.1 kg. PHYSICAL EXAMINATION: GENERAL: The patient is awake, alert, and oriented times three, lying in bed, no apparent distress. HEAD/NECK: Extraocular muscles intact. Pupils equal, round, and reactive to light. Mucous membranes are moist. Neck is supple. There is no jugular venous distention (JVD). The patient has a surgical scar on the front of the neck. CARDIOVASCULAR: S1, S2. Regular rate. No murmur, rub, or gallop. RESPIRATORY: Chest is clear to auscultation bilaterally. Bilateral equal air entry. No rales or rhonchi. ABDOMEN: Soft. Positive bowel sounds. Mild tenderness in the right lower quadrant because of history of colectomy in the past. No ascites. MUSCULOSKELETAL: No edema of the extremities. Pulses are 2+. CENTRAL NERVOUS SYSTEM (AIRPLANE GASTANK LINER ASSEMBLER): No focal neurological deficit. Power id 5/5 in all extremities. LABORATORY DATA: CBC showed WBC 10.3, hemoglobin 10, platelets 293. BMP showed sodium 126, potassium 4.2, chloride 88, bicarbonate 31, BUN 16, creatinine 0.8. CURRENT INPATIENT MEDICATIONS: The patient's medications were all reviewed by me. I have given the patient one dose of Samsca 15 mg by mouth. No other change in the medications today. ASSESSMENT: A 71-year-old female with past medical history of severe peripheral neuropathy, history of colon resection in the past. Nephrology service following the patient for hyponatremia. PLAN: 1. Hyponatremia: The patient's sodium level is stable at 126. I have restricted the patient's fluid intake to 1500 mL daily. Continue basic metabolic panel (BMP) monitoring every 24 hours now. I have given the patient one dose of Samsca 15 mg by mouth. Sodium level is expected to improve by tomorrow. 2. Enterobacter cloacae urinary tract infection (UTI): Continue Rocephin, last dose will be on 03/01/2017. 3. Hypertension: Blood pressure is acceptable at this time. Continue current dose of isosorbide, labetalol, and lisinopril. The plan of care was discussed with the hospitalist, Dr. Sangeetha Scott.
[2017-02-27 00:25] VITALS: BP 110/56
[2017-02-27 04:54] VITALS: BP 96/50
[2017-02-27] MEDS: ISOSORBIDE DIN. (ISORDIL) 20 MG TAB PO SCH ×3 (05:09→21:02)
[2017-02-27 05:14] LABS: MEAN CORPUSCULAR HEMOGLOBIN 32.6 pg (27.0-33.0); MEAN CORPUSCULAR HGB CONC 34.8 g/dl (32.0-36.5); MEAN CORPUSCULAR VOLUME 93.7 fl (80.0-96.0); RED CELL DISTRIBUTION WIDTH 13.8 % (11.5-14.5); WHITE BLOOD COUNT 8.8 K/mm3 (4.0-10.0)
[2017-02-27] MEDS: SLF 3 ML SYR IV SCH ×3 (05:24→21:07)
[2017-02-27 05:35] LABS: ALBUMIN 3.4 GM/DL (3.2-5.2); CALCIUM LEVEL 9.3 MG/DL (8.8-10.2); CREATININE FOR GFR 1.04 MG/DL (0.55-1.02); GLOMERULAR FILTRATION RATE 55.5 (>39); PHOSPHORUS LEVEL 5.1 MG/DL (2.5-4.9)
[2017-02-27 07:44] VITALS: BP 144/78
[2017-02-27] MEDS ORDERED: SODIUM CHLORIDE 1 GM TAB PO SCH (09:00)
[2017-02-27] MEDS: PANTOPRAZOLE 40MG TAB (PROTONIX) PO SCH (09:09)
[2017-02-27] MEDS: LISINOPRIL 10 MG TAB PO SCH (09:09)
[2017-02-27] MEDS: VITAMIN D (CHOLECALCIFEROL) 400 INTERNATIONAL UNITS TAB PO SCH (09:09)
[2017-02-27] MEDS: VITAMIN B COMPLEX/VIT C CAP PO SCH (09:09)
[2017-02-27] MEDS: levETIRAcetam 250MG TABLET (KEPPRA) PO SCH ×2 (09:09→20:44)
[2017-02-27] MEDS: predniSONE 10 MG TAB PO SCH (09:10)
[2017-02-27] MEDS: LABETALOL 100 MG TAB PO SCH ×2 (09:10→20:46)
[2017-02-27] MEDS: FERROUS SULFATE 325MG TAB PO SCH ×2 (09:10→20:45)
[2017-02-27] MEDS: HEPARIN SOD (PORCINE) 5000 UNITS/ML VIAL SC SCH ×2 (09:11→20:43)
[2017-02-27] MEDS ORDERED: FUROSEMIDE 20 MG TAB PO ONE (10:15)
[2017-02-27 12:00] VITALS: BP 109/60
[2017-02-27 12:04] LABS: OSMOLALITY URINE 177 MOSM/KG (500-800)
[2017-02-27 13:32] LABS: CALCIUM LEVEL 9.4 MG/DL (8.8-10.2); CREATININE FOR GFR 1.13 MG/DL (0.55-1.02); GLOMERULAR FILTRATION RATE 50.4 (>39); POTASSIUM SERUM 4.4 MEQ/L (3.5-5.1)
[2017-02-27] MEDS: SODIUM CHLORIDE 1 GM TAB PO SCH (13:55)
[2017-02-27 16:00] VITALS: BP 123/59
[2017-02-27] MEDS ORDERED: SENN1TAB2 PO (17:48)
[2017-02-27] MEDS ORDERED: SODI1TA PO (17:48)
[2017-02-27] MEDS ORDERED: BENA25TA10 PO (17:56)
[2017-02-27] MEDS ORDERED: HALO5TA PO (17:56)
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
[2017-02-27 20:00] VITALS: BP 138/70
[2017-02-27] MEDS: ATORVASTATIN 20 MG TAB PO SCH (20:44)
[2017-02-27] MEDS: HALOPERIDOL 5 MG TAB PO SCH ×2 (20:44→21:00)
[2017-02-27] MEDS: LEVOTHYROXINE 25MCG TABLET (0.025MG) PO SCH (20:45)
[2017-02-27] MEDS: diphenhydrAMINE 25 MG CAP PO SCH ×2 (20:45→20:59)
[2017-02-27] MEDS: OXcarbazepine 150 MG TAB PO SCH (20:45)
[2017-02-27] MEDS ORDERED: POTASSIUM CHLORIDE 10 MEQ SR TABLET PO SCH (21:00)
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
[2017-02-28] VITALS: BP 143/64
[2017-02-28] MEDS: oxyCODONE 5MG TAB PO PRN (00:09)
[2017-02-28 04:00] VITALS: BP 100/59
[2017-02-28 05:40] LABS: MEAN CORPUSCULAR HEMOGLOBIN 31.8 pg (27.0-33.0); MEAN CORPUSCULAR HGB CONC 33.8 g/dl (32.0-36.5); MEAN CORPUSCULAR VOLUME 94.1 fl (80.0-96.0); RED CELL DISTRIBUTION WIDTH 13.8 % (11.5-14.5); WHITE BLOOD COUNT 9.6 K/mm3 (4.0-10.0)
[2017-02-28 05:51] LABS: ALBUMIN 3.5 GM/DL (3.2-5.2); ANION GAP 7 MEQ/L (8-16); BLOOD UREA NITROGEN 18 MG/DL (7-18); CALCIUM LEVEL 9.2 MG/DL (8.8-10.2); CARBON DIOXIDE LEVEL 30 MEQ/L (21-32); CHLORIDE LEVEL 94 MEQ/L (98-107); CREATININE FOR GFR 0.92 MG/DL (0.55-1.02); GLOMERULAR FILTRATION RATE > 60.0 (>39); GLUCOSE, FASTING 89 MG/DL (83-110); PHOSPHORUS LEVEL 4.4 MG/DL (2.5-4.9); POTASSIUM SERUM 4.2 MEQ/L (3.5-5.1); SODIUM LEVEL 131 MEQ/L (136-145)
--- NOTE | 2017-02-28 06:36 | IPN ---
DATE OF VISIT: 02/27/2017 SUBJECTIVE: The patient was seen and examined at the bedside today in the morning. She is feeling better. Her sodium level has improved to 130 today. The patient wants to go home. REVIEW OF SYSTEMS: The patient denies any fever, chills, rigors, headache, nausea, vomiting, chest pain, shortness of breath. She does report persistent peripheral neuropathic pain which is baseline for her. OBJECTIVE: VITAL SIGNS: Temperature is 97.7 degrees Fahrenheit, blood pressure 109/60, pulse is 67, respiratory rate 18, saturating 98% on room air. Intake and output: Urine output recorded as 1300 at the end of yesterday, 450 mL so far today, sine overnight weight on the bed scale is 62.4 kg. PHYSICAL EXAMINATION: GENERAL: The patient is awake, alert and oriented times three laying in bed in no apparent distress. HEAD/NECK: Extraocular muscles intact, pupils equal, round, and reactive to light. Moist mucous membranes. Neck is supple. There is no jugular venous distention (JVD). CARDIOVASCULAR: S1, S2, regular rate, no murmurs, rubs, gallops. RESPIRATORY: Chest is clear to auscultation bilaterally. Bilateral equal air entry. No rales or rhonchi. ABDOMEN: Soft, positive bowel sounds. No tenderness, no ascites, no organomegaly. MUSCULOSKELETAL: No edema of the bilateral lower extremities. Pulses are 2+. CENTRAL NERVOUS SYSTEM (CLASSIFIED ADVERTISING SUPERVISOR): No focal neurologic deficit. Power is 5 by 5 in all extremities. LAB DATA: CBC showed a WBC of 8.8, hemoglobin 10.2, platelets 311. Urine osmolality today is 177. Urine sodium is 13. BMP done today showed a sodium of 130, potassium 5, chloride 94, bicarbonate 28, BUN 16, creatinine 1.04, calcium 9.3, phosphorus 5.1. MEDICATIONS: The patient's medications are all reviewed by me. Her Rocephin has been stopped now. The patient was given one dose of Lasix 20 mg by mouth. She continues to be on by mouth Keshia Ciel which I stopped today. I started the patient on sodium chloride 1 gram by mouth daily. ASSESSMENT: This is a 71-year-old female with a past medical history of severe peripheral neuropathy, history of colon resection in the past, nephrology service following the patient for management of hyponatremia. PLAN: 1. Hyponatremia. The patient's urine osmolality today showed 177, urine sodium is 13. I started the patient on a sodium chloride tablet 1 gram daily. I have also given the patient one dose of Lasix 20 mg. Continue the patient on salt tablet one gram by mouth daily. 2. Hypertension. Blood pressure is acceptable at this time. Continue current dose of labetalol, lisinopril and isosorbide. 3. Enterobacter cloacae urinary tract infection (UTI): The patient was on intravenous DISCHARGE PLANNING: It is okay to discharge the patient from a nephrology standpoint. She needs to be discharged on her current dose of salt tablets. She needs to followup with nephrology one week after discharge from the hospital when adjustment of medications will be done as an outpatient. The plan of care was discussed with the hospitalist, Dr. Sangeetha Scott.
[2017-02-28] MEDS: SLF 3 ML SYR IV SCH (06:38)
[2017-02-28] MEDS: ISOSORBIDE DIN. (ISORDIL) 20 MG TAB PO SCH (06:38)
[2017-02-28 08:00] VITALS: BP 133/71
[2017-02-28] MEDS: FERROUS SULFATE 325MG TAB PO SCH (08:44)
[2017-02-28] MEDS: HALOPERIDOL 5 MG TAB PO SCH (08:44)
[2017-02-28] MEDS: predniSONE 10 MG TAB PO SCH (08:44)
[2017-02-28] MEDS: VITAMIN D (CHOLECALCIFEROL) 400 INTERNATIONAL UNITS TAB PO SCH (08:44)
[2017-02-28] MEDS: HEPARIN SOD (PORCINE) 5000 UNITS/ML VIAL SC SCH (08:44)
[2017-02-28] MEDS: LABETALOL 100 MG TAB PO SCH (08:45)
[2017-02-28] MEDS: SODIUM CHLORIDE 1 GM TAB PO SCH (08:45)
[2017-02-28] MEDS: levETIRAcetam 250MG TABLET (KEPPRA) PO SCH (08:45)
[2017-02-28] MEDS: PANTOPRAZOLE 40MG TAB (PROTONIX) PO SCH (08:46)
[2017-02-28] MEDS: VITAMIN B COMPLEX/VIT C CAP PO SCH (08:46)
[2017-02-28 08:49] VITALS: BP 133/71
[2017-02-28] MEDS: LISINOPRIL 10 MG TAB PO SCH (08:49)
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
[2017-02-28] MEDS ORDERED: BENA25TA10 PO (10:48)
[2017-02-28] MEDS ORDERED: RISP0.5T21 PO (10:48)
[2017-02-28 12:00] VITALS: BP 103/76
--- NOTE | 2017-02-28 14:46 | IPN ---
DATE: 02/28/2017 Per nursing, no acute issues overnight. This morning, the patient was in tears and was requesting to be discharged home due to her cat that she has had for 19 years. The patient states that she is uncomfortable with taking the Haldol, as she has been trying to be off of her psychiatric medications for a long time. However, per psychiatrist, the patient is exhibiting unspecified bipolar disorder with recommendations for Haldol 5 mg twice a day and 50 mg of Benadryl at bedtime for extrapyramidal symptoms (EPS) symptoms. Reevaluation has not been done this morning by the psychiatrist. The patient's sodium level appears to be stable, currently at 131. She is still taking her salt tablets. Awaiting clearance from physical therapy as well as. Awaiting home safety evaluation. PHYSICAL EXAMINATION: VITAL SIGNS: Temperature 96.8, pulse 80, respiratory rate 18, blood pressure 133/71, 99% on room air. GENERAL: The patient is awake, alert, and oriented to person, place. She is tearful at the bedside, appears to be slightly agitated. LUNGS: Clear to auscultation. No wheezing, rales, or rhonchi. HEART: S1, S2, sinus rhythm. ABDOMEN: Soft, nontender, nondistended. Positive bowel sounds. EXTREMITIES: No clubbing, cyanosis or pitting edema, +2 pulses. LABORATORY DATA: Has been reviewed. ASSESSMENT AND PLAN: A 71-year-old female with history of unspecified bipolar disorder, posttraumatic stress disorder (PTSD), severe peripheral neuropathy, colon resection due to ulcerative colitis, hypertension, dyslipidemia, coronary artery disease (CAD), questionable history of Sjogren's, rheumatoid arthritis follows with Dr. Noonan, osteoarthritis, seizure disorder, hyponatremia secondary to Tegretol, spinal stenosis, chronic pain, colon carcinoma (CA) status post sigmoid resection, chronic obstructive pulmonary disease (COPD), and fibromyalgia who presented to the emergency room with generalized weakness, decreased exercise tolerance, fatigue, sleeplessness, and diffuse pain. The patient was seen by her yarder in [place] and presented to the emergency room with sodium level of 120 due to psychogenic polydipsia and admitted to the hospital. CURRENT ISSUES: 1. Symptomatic hyponatremia secondary to psychogenic polydipsia. Recommendation from nephrology is to continue with 1.5 liter fluid restriction and sodium chloride tablets 1 gram daily. She will followup as outpatient within a week of discharge. 2. Hypertension. Blood pressure appears to be stable on labetalol, lisinopril, and isosorbide. 3. Enterobacter urinary tract infection (UTI). The patient has completed a full course of antibiotics. 4. Bipolar disorder, unspecified. Recommendations are for Haldol and Benadryl which the patient refuses to take. Currently follows by psychiatrist. Will need to reassess today to determine the need for inpatient mental health admission. Dr. Calle will determine if the patient needs legal paperwork for involuntary inpatient mental health unit (IMHU) admission versus discharge home. 5. Questionable history of Sjogren's rheumatoid arthritis. Outpatient followup with at [facility] with Dr. Noonan, former yarder. Pain management with Keyana Ellis NP. Outpatient rheumatology workup and followup. 6. History of colon carcinoma (CA), status post sigmoid resection, stable. 7. History of seizure disorder. Continue with home medications. 8. History of seizures. Continue on Keppra and Trileptal. 9. Chronic pain. Continue with chronic pain medications. 10. Hypothyroidism. Thyroid-stimulating hormone (TSH) appears to be normal. Continue on Synthroid. 11. Dysphagia. Modified barium swallow was negative. The patient refused to eat solid food. Case was discussed with Dr. Clay, will continue laryngoscopy as outpatient. [facility] CENTERLucas
[2017-03-02 00:07] LABS: ADH PANEL OSMOLALITY 267 mOsmol/kg (280-301); ANTI-DIURETIC HORMONE <0.8 pg/mL (0.0-4.7)
--- NOTE | 2017-03-06 19:12 | ECGEPIP ---
Stationary ECG Study [facility] Test Date: 2017-02-23 Pat Name: AYAKA LUCIO Department: Room: [place] [address] Gender: F Medical Charge Entry Specialist: : 1945 Requested By: YANELY CLARKE Order Number: [id number] Reading MD: Jasmeet Scott Measurements Intervals [place] Rate: 63 P: 66 PA: 165 QRS: 30 QRSD: 107 T: 95 QT: 416 QTc: 426 Interpretive Statements Normal sinus rhythm. Nonspecific ST/T-wave abnormalities. No significant change from 02/22/17. Electronically Signed On 03-06-2017 19:12:00 EDT by Jasmeet Scott
== END 2017-02-28 12:28 | disposition home or self-care (01) | DRG 699 ==
LOC: M ED 19:41 → M ED INP 02-21 00:40 → M MSPAV 02-21 02:09 → M PCU 02-23 17:26
PROVIDERS: ATTEND Hospitalist
DX: N25.1 Nephrogenic diabetes insipidus (principal); E87.1 Hypo-osmolality and hyponatremia; E46 Unspecified protein-calorie malnutrition; N39.0 Urinary tract infection, site not specified; F31.81 Bipolar II disorder; I10 Essential (primary) hypertension; G40.909 Epilepsy, unspecified, not intractable, without status epilepticus; E03.9 Hypothyroidism, unspecified; M06.9 Rheumatoid arthritis, unspecified; E78.5 Hyperlipidemia, unspecified; I25.10 Atherosclerotic heart disease of native coronary artery without angina pectoris; M35.00 Sjogren syndrome, unspecified; M19.90 Unspecified osteoarthritis, unspecified site; J44.9 Chronic obstructive pulmonary disease, unspecified; M79.7 Fibromyalgia; Z85.038 Personal history of other malignant neoplasm of large intestine; Z91.19 Patient's noncompliance with other medical treatment and regimen; Z79.899 Other long term (current) drug therapy; Z88.8 Allergy status to other drugs, medicaments and biological substances; Z91.041 Radiographic dye allergy status; Z87.891 Personal history of nicotine dependence; D50.9 Iron deficiency anemia, unspecified; Z88.7 Allergy status to serum and vaccine; R33.8 Other retention of urine; E87.6 Hypokalemia; G60.9 Hereditary and idiopathic neuropathy, unspecified; F43.10 Post-traumatic stress disorder, unspecified

== ENCOUNTER → 2017-03-02 | Outpatient (REF) | payer MEDICARE, MEDICAID ==
[~2017-03-02] MED LIST changes: +ALBU17IN INH; +ATOR40TA75 PO; +BENA25TA10 PO; +FERR1TAB8 PO; +HALO5TA PO; +KEPP1TAB PO; +LABE10TAB PO; +LEVO25TA5 PO; +LOMO2.5T PO; +NITR0.1S SL; +OXCA150T PO; +PANT40TA2 PO; +PERC5TAB12 PO; +PRED10TA2 PO; +REST0.05 OU; +RISP0.5T21 PO; +SENN1TAB2 PO; +SODI1TA PO; +VITA400T2 PO; +VITATAB11 PO
[2017-03-02 17:44] LABS: ALBUMIN 3.8 GM/DL (3.2-5.2); ALBUMIN/GLOBULIN RATIO 1.27 (1.00-1.93); ALKALINE PHOSPHATASE 67 U/L (45-117); ALT/SGPT 24 U/L (12-78); ANION GAP 7 MEQ/L (8-16); AST/SGOT 15 U/L (15-37); BILIRUBIN,TOTAL 0.3 MG/DL (0.2-1.0); BLOOD UREA NITROGEN 14 MG/DL (7-18); CALCIUM LEVEL 8.9 MG/DL (8.8-10.2); CARBON DIOXIDE LEVEL 30 MEQ/L (21-32); CHLORIDE LEVEL 93 MEQ/L (98-107); CREATININE FOR GFR 0.76 MG/DL (0.55-1.02); GLOMERULAR FILTRATION RATE > 60.0 (>39); GLUCOSE, FASTING 94 MG/DL (83-110); POTASSIUM SERUM 4.1 MEQ/L (3.5-5.1); SODIUM LEVEL 130 MEQ/L (136-145); TOTAL PROTEIN 6.8 GM/DL (6.4-8.2)
== END ==
LOC: M LAB REF 16:45
PROVIDERS: ATTEND Family Medicine Addiction Medicine
DX: E87.1 Hypo-osmolality and hyponatremia (principal)

== ENCOUNTER → 2017-03-15 | Outpatient (REF) | payer MEDICARE | LOC: M SMT 17:17 | PROVIDERS: ATTEND Nurse Practitioner Women's Health | DX: N39.0 Urinary tract infection, site not specified (principal) ==

== ENCOUNTER → 2017-04-03 | Outpatient (REF) | payer MEDICARE, MEDICAID ==
[2017-04-03 14:12] LABS: PERCENT SATURATION 24.2 % (13.2-45.0)
[2017-04-04 10:39] LABS: CARCINOEMBRYONIC ANTIGEN 9.9 NG/ML (<2.5)
== END ==
LOC: M LAB REF 13:33
PROVIDERS: ATTEND Internal Medicine Medical Oncology
DX: C18.9 Malignant neoplasm of colon, unspecified (principal)

== ENCOUNTER → 2017-05-23 | Outpatient (REF) | payer MEDICARE ==
[2017-05-23 19:14] LABS: FERRITIN 401 NG/ML (8-252); PERCENT SATURATION 47.4 % (13.2-45.0); TOTAL IRON BINDING CAPACITY 270 UG/DL (250-450)
[2017-05-23 19:22] LABS: VITAMIN B12 LEVEL 1013 PG/ML
[2017-05-23 19:23] LABS: FOLATE > 24.0 NG/ML
== END ==
LOC: M LAB REF 16:47
PROVIDERS: ATTEND Internal Medicine Nephrology
DX: D64.9 Anemia, unspecified (principal)

== ENCOUNTER → 2017-07-03 | Outpatient (REF) | payer MEDICARE ==
[2017-07-03 21:13] LABS: PERCENT SATURATION 26.4 % (13.2-45.0)
[2017-07-04 09:41] LABS: CARCINOEMBRYONIC ANTIGEN 6.2 NG/ML (<2.5)
== END ==
LOC: M LAB REF 17:08
PROVIDERS: ATTEND Internal Medicine Medical Oncology
DX: C18.9 Malignant neoplasm of colon, unspecified (principal); D50.9 Iron deficiency anemia, unspecified

== ENCOUNTER → 2017-07-28 | Outpatient (CLI) | payer MEDICARE, MEDICAID ==
--- NOTE | 2017-07-28 13:11 | REPMRS ---
Patient History The patient states she has not had a clinical breast exam in over a year. Patient has history of colorectal cancer at age 66 and has history of endometrial cancer at age 25. Family history of unknown cancer in father at age 50 or over, colorectal cancer in paternal grandfather at age 50 or over, and prostate cancer in maternal uncle at age 50 or over. Digital Mammo Screening Bilat: July 28, 2017 - Exam #: [id number] Bilateral CC and MLO view(s) were taken. Technologist: Marcy Gonzalez Technologist Prior study comparison: November 16, 2015, bilateral digital mammo screening bilat performed at [facility]. April 03, 2013, bilateral digital mammo screening bilat performed at [facility]. March 05, 2012, bilateral digital mammo screening bilat performed at [facility]. FINDINGS: There are scattered fibroglandular densities. There has been no change in the appearance of the mammogram from the prior studies. There is a mild amount of residual fibroglandular tissue which is fairly symmetric. There is no interval development of dominant mass, architectural distortion, or clustered microcalcification suggestive of malignancy. There are bilateral benign arterial calcifications noted. Scattered lymph nodes are seen in the left axilla. Large coarse benign appearing calcifications are present. No significant changes when compared with prior studies. ASSESSMENT: BI-RADS/ACR category 2 mammogram. Benign finding(s). Recommendation Routine screening mammogram in 1 year (for women over age 40). This mammogram was interpreted with the aid of an FDA-approved computer-aided dectection system. A. Negative x-ray reports should not delay biopsy if a dominant or clinically suspicious mass is present. B. Four to eight percent of cancers are not identified by mammography. C. Adenosis and dense breast may obscure an underlying neoplasm. Electronically Signed By: Darrell Monge MD 07/28/17 [id number]
== END ==
LOC: M RAD 12:21
PROVIDERS: ATTEND Internal Medicine Medical Oncology
DX: Z12.31 Encounter for screening mammogram for malignant neoplasm of breast (principal); Z85.038 Personal history of other malignant neoplasm of large intestine

== ENCOUNTER → 2017-09-04 | Outpatient (REF) | payer MEDICARE, MEDICAID ==
[2017-09-04 21:18] LABS: FERRITIN 106 NG/ML (8-252); IRON (FE) 66 UG/DL (50-170); PERCENT SATURATION 23.2 % (13.2-45.0); TOTAL IRON BINDING CAPACITY 285 UG/DL (250-450)
[2017-09-05 09:44] LABS: CARCINOEMBRYONIC ANTIGEN 6.4 NG/ML (<2.5)
== END ==
LOC: M LAB REF 16:50
DX: C18.9 Malignant neoplasm of colon, unspecified (principal)
CPT/HCPCS: 82378

== ENCOUNTER 2017-09-06 06:27 | Day surgery (SDC) | payer OTHER, MEDICAID ==
[2017-09-06] MEDS: NS 500 ML IV (07:08)
[2017-09-06] MEDS ORDERED: PROPOFOL 200 MG/20 ML VIAL As Ordered ×3 (07:54)
[2017-09-06] MEDS ORDERED: PHENYLephrine HCL 500 MCG/5 ML (100MCG/ML) SYRINGE (J2370) As Ordered (07:55)
== END 2017-09-06 09:00 | disposition home or self-care (01) ==
LOC: M OPP 06:27
DX: Z12.11 Encounter for screening for malignant neoplasm of colon (principal); Z85.038 Personal history of other malignant neoplasm of large intestine; D50.9 Iron deficiency anemia, unspecified; D12.7 Benign neoplasm of rectosigmoid junction; K63.89 Other specified diseases of intestine; Z98.0 Intestinal bypass and anastomosis status; R13.12 Dysphagia, oropharyngeal phase; K22.8 Other specified diseases of esophagus; K31.89 Other diseases of stomach and duodenum; I25.10 Atherosclerotic heart disease of native coronary artery without angina pectoris; I25.2 Old myocardial infarction; I12.9 Hypertensive chronic kidney disease with stage 1 through stage 4 chronic kidney disease, or unspecified chronic kidney disease; E78.5 Hyperlipidemia, unspecified; I83.90 Asymptomatic varicose veins of unspecified lower extremity; E03.9 Hypothyroidism, unspecified; Z87.19 Personal history of other diseases of the digestive system; K21.9 Gastro-esophageal reflux disease without esophagitis; R12 Heartburn; M19.90 Unspecified osteoarthritis, unspecified site; M54.9 Dorsalgia, unspecified; F32.9 Major depressive disorder, single episode, unspecified; F41.9 Anxiety disorder, unspecified; F43.10 Post-traumatic stress disorder, unspecified; R56.9 Unspecified convulsions; J44.9 Chronic obstructive pulmonary disease, unspecified; R06.83 Snoring; N18.3 Chronic kidney disease, stage 3 (moderate); Z91.041 Radiographic dye allergy status; Z88.7 Allergy status to serum and vaccine; Z88.8 Allergy status to other drugs, medicaments and biological substances; Z88.3 Allergy status to other anti-infective agents; Z91.048 Other nonmedicinal substance allergy status; Z91.018 Allergy to other foods; Z79.899 Other long term (current) drug therapy
CPT/HCPCS: 45380

== ENCOUNTER → 2017-10-18 | Outpatient (REF) | payer OTHER, MEDICAID ==
[2017-10-18 20:28] LABS: ALBUMIN/GLOBULIN RATIO 1.54 (1.00-1.93); ALKALINE PHOSPHATASE 50 U/L (45-117); ALT/SGPT 24 U/L (12-78); ANION GAP 8 MEQ/L (8-16); AST/SGOT 18 U/L (7-37); BILIRUBIN,TOTAL 0.3 MG/DL (0.2-1.0); BLOOD UREA NITROGEN 8 MG/DL (7-18); CALCIUM LEVEL 8.9 MG/DL (8.8-10.2); CARBON DIOXIDE LEVEL 29 MEQ/L (21-32); CHLORIDE LEVEL 96 MEQ/L (98-107); CHOLESTEROL LEVEL 188 MG/DL (<200); CHOLESTEROL RISK RATIO 1.773 (<5); GLOMERULAR FILTRATION RATE 51.8 (>39); GLUCOSE, FASTING 76 MG/DL (70-100); HDL CHOLESTEROL 106 MG/DL (>40); LDL CHOLESTEROL 58.8 MG/DL (<100); NON-HDL-C 82 MG/DL; POTASSIUM SERUM 3.8 MEQ/L (3.5-5.1); SODIUM LEVEL 133 MEQ/L (136-145); TOTAL PROTEIN 6.6 GM/DL (6.4-8.2); TRIGLYCERIDES LEVEL 116 MG/DL (<150)
== END ==
LOC: M LAB REF 17:54
DX: E78.2 Mixed hyperlipidemia (principal)
CPT/HCPCS: 84443

== ENCOUNTER → 2017-11-06 | Outpatient (REF) | payer OTHER, MEDICAID ==
[2017-11-06 18:49] LABS: FOLATE > 24.0 NG/ML; VITAMIN B12 LEVEL 608 PG/ML
[2017-11-06 18:52] LABS: FERRITIN 35 NG/ML (8-252); IRON (FE) 159 UG/DL (50-170); PERCENT SATURATION 48.6 % (13.2-45.0); TOTAL IRON BINDING CAPACITY 327 UG/DL (250-450)
== END ==
LOC: M LAB REF 17:38
DX: C18.9 Malignant neoplasm of colon, unspecified (principal); D64.9 Anemia, unspecified
CPT/HCPCS: 82746

== ENCOUNTER 2017-11-21 11:05 | Emergency (ER) | payer OTHER, MEDICAID, MEDICARE ==
[2017-11-21] MEDS: ASPIRIN 81 MG CHEW TABLET PO (11:45)
[2017-11-21 11:50] LABS: BASO % 0.2 % (0.0-1.0); EOS # 0.1 10^3/uL (0.0-0.50); EOS % 1.3 % (0.0-3.0); HEMATOCRIT 27.4 % (36.0-47.0); HEMOGLOBIN 8.9 g/dl (12.0-15.5); IMMATURE GRANULOCYTE % 0.5 % (0-3.0); LYMPH # 1.4 10^3/uL (1.5-4.5); LYMPH % 12.5 % (24.0-44.0); MEAN CORPUSCULAR HEMOGLOBIN 32.2 pg (27.0-33.0); MEAN CORPUSCULAR HGB CONC 32.5 g/dl (32.0-36.5); MEAN CORPUSCULAR VOLUME 99.3 fl (80.0-96.0); MONO # 0.7 10^3/uL (0.0-0.8); MONO % 6.4 % (0.0-5.0); NEUTROPHILS # 8.7 10^3/uL (1.8-7.7); NEUTROPHILS % 79.1 % (36.0-66.0); PLATELET COUNT, AUTOMATED 276 10^3/uL (150-450); RED BLOOD COUNT 2.76 10^6/uL (4.00-5.40); RED CELL DISTRIBUTION WIDTH 13.3 % (11.5-14.5)
[2017-11-21 12:30] LABS: ALBUMIN 3.7 GM/DL (3.2-5.2); ALBUMIN/GLOBULIN RATIO 1.76 (1.00-1.93); ALKALINE PHOSPHATASE 37 U/L (45-117); ALT/SGPT 24 U/L (12-78); ANION GAP 5 MEQ/L (8-16); AST/SGOT 22 U/L (7-37); BILIRUBIN,DIRECT 0.1 MG/DL (0.0-0.2); BILIRUBIN,TOTAL 0.3 MG/DL (0.2-1.0); BLOOD UREA NITROGEN 12 MG/DL (7-18); CALCIUM LEVEL 8.4 MG/DL (8.8-10.2); CARBON DIOXIDE LEVEL 30 MEQ/L (21-32); CHLORIDE LEVEL 103 MEQ/L (98-107); CK-MB VALUE MASS 2.1 NG/ML (<3.6); CPK CREATINE PHOSPHOKINASE 100 U/L (26-192); CREATININE FOR GFR 0.93 MG/DL (0.55-1.30); GLOMERULAR FILTRATION RATE > 60.0 (>39); GLUCOSE, FASTING 93 MG/DL (70-100); LIPASE 199 U/L (73-393); SODIUM LEVEL 138 MEQ/L (136-145); TOTAL PROTEIN 5.8 GM/DL (6.4-8.2); TROPONIN I < 0.02 NG/ML (< 0.10)
[2017-11-21 17:38] LABS: CK-MB VALUE MASS 1.2 NG/ML (<3.6); CPK CREATINE PHOSPHOKINASE 50 U/L (26-192); TROPONIN I < 0.02 NG/ML (< 0.10)
== END 2017-11-21 18:22 | disposition home or self-care (01) ==
LOC: M ED 11:05
DX: R07.89 Other chest pain (principal); D64.9 Anemia, unspecified; T46.3X5A Adverse effect of coronary vasodilators, initial encounter; R42 Dizziness and giddiness; R00.1 Bradycardia, unspecified; I10 Essential (primary) hypertension; E78.5 Hyperlipidemia, unspecified; M06.9 Rheumatoid arthritis, unspecified; M48.00 Spinal stenosis, site unspecified; R56.9 Unspecified convulsions; K51.90 Ulcerative colitis, unspecified, without complications; Z79.899 Other long term (current) drug therapy; Z79.52 Long term (current) use of systemic steroids; Z91.018 Allergy to other foods; Z88.7 Allergy status to serum and vaccine; Z91.048 Other nonmedicinal substance allergy status; Z88.8 Allergy status to other drugs, medicaments and biological substances; J30.1 Allergic rhinitis due to pollen
CPT/HCPCS: 93005

== ENCOUNTER 2017-12-13 10:38 | Inpatient (IN) | payer OTHER, MEDICAID ==
[2017-12-13] MEDS: predniSONE 10 MG TAB PO (09:00)
[2017-12-13] MEDS: PANTOPRAZOLE 40MG INJ (PROTONIX) (C9113) IV (09:00)
[2017-12-13] MEDS: NS 1,000 ML IV (11:32)
[2017-12-13 11:35] LABS: EOS % 0.3 % (0.0-3.0); HEMATOCRIT 28.2 % (36.0-47.0); HEMOGLOBIN 9.8 g/dl (12.0-15.5); IMMATURE GRANULOCYTE % 0.5 % (0-3.0); LYMPH # 0.9 10^3/uL (1.5-4.5); MEAN CORPUSCULAR HEMOGLOBIN 31.8 pg (27.0-33.0); MEAN CORPUSCULAR HGB CONC 34.8 g/dl (32.0-36.5); MEAN CORPUSCULAR VOLUME 91.6 fl (80.0-96.0); MONO # 0.5 10^3/uL (0.0-0.8); MONO % 12.7 % (0.0-5.0); NEUTROPHILS # 2.6 10^3/uL (1.8-7.7); NEUTROPHILS % 64.5 % (36.0-66.0); PLATELET COUNT, AUTOMATED 234 10^3/uL (150-450); RED BLOOD COUNT 3.08 10^6/uL (4.00-5.40); RED CELL DISTRIBUTION WIDTH 12.4 % (11.5-14.5)
[2017-12-13 11:57] LABS: LACTIC ACID SEPSIS PROTOCOL 1.2 MMOL/L (0.4-2.0)
[2017-12-13 12:04] LABS: ALBUMIN 3.4 GM/DL (3.2-5.2); ALBUMIN/GLOBULIN RATIO 1.26 (1.00-1.93); ALKALINE PHOSPHATASE 43 U/L (45-117); ALT/SGPT 33 U/L (12-78); ANION GAP 7 MEQ/L (8-16); AST/SGOT 47 U/L (7-37); BILIRUBIN,DIRECT < 0.1 MG/DL (0.0-0.2); BILIRUBIN,TOTAL 0.4 MG/DL (0.2-1.0); BLOOD UREA NITROGEN 14 MG/DL (7-18); CALCIUM LEVEL 8.3 MG/DL (8.8-10.2); CARBON DIOXIDE LEVEL 27 MEQ/L (21-32); CHLORIDE LEVEL 92 MEQ/L (98-107); CPK CREATINE PHOSPHOKINASE 122 U/L (26-192); CREATININE FOR GFR 1.14 MG/DL (0.55-1.30); GLOMERULAR FILTRATION RATE 49.7 (>39); GLUCOSE, FASTING 81 MG/DL (70-100); LIPASE 293 U/L (73-393); POTASSIUM SERUM 4.3 MEQ/L (3.5-5.1); SODIUM LEVEL 126 MEQ/L (136-145); TOTAL PROTEIN 6.1 GM/DL (6.4-8.2); TROPONIN I < 0.02 NG/ML (< 0.10)
[2017-12-13 12:05] LABS: MB/CK RELATIVE INDEX 1.63 (< OR =4)
[2017-12-13 12:13] LABS: INFLUENZA A AMPLIFICATION POSITIVE (NEGATIVE); INFLUENZA B AMPLIFICATION NEGATIVE (NEGATIVE)
[2017-12-13 12:23] LABS: FREE T4 0.94 NG/DL (0.76-1.46)
[2017-12-13] MEDS ORDERED: MAALOX 30 ML SUSP *UDC PO (13:45)
[2017-12-13] MEDS ORDERED: ACETAMINOPHEN TAB 650MG DOSE (2X325MG) PO (14:00)
[2017-12-13] MEDS ORDERED: IPRATROPIUM 0.5MG/ALBUTEROL 2.5MG INH SOL UD 3ML (DUONEB)(J7620) NEB (14:15)
[2017-12-13 15:13] LABS: OSMOLALITY SERUM 264 MOSM/KG (280-301)
[2017-12-13] MEDS: KCL 20MEQ in NS 1000ML 1,000 ML IV (15:19)
[2017-12-13 18:04] LABS: KETONE, URINE AUTO RFX NEGATIVE (NEGATIVE); LEUKOCYTE ESTERASE UR AUTO RFX NEGATIVE (NEGATIVE); NITRITE, URINE AUTO RFX NEGATIVE (NEGATIVE); RBC, URINE AUTO RFX 1 /HPF (0-3); SPECIFIC GRAVITY UR AUTO RFX 1.003 (1.002-1.035); SQUAM EPITHELIAL CELL UR AURFX 0 /HPF (0-6); WBC, URINE AUTO RFX 1 /HPF (0-3)
[2017-12-13 18:08] LABS: OSMOLALITY URINE 114 MOSM/KG (500-800)
[2017-12-13 18:30] LABS: CREATININE,RANDOM URINE 31.2 MG/DL; SODIUM,RANDOM URINE 12 MEQ/L
[2017-12-13 18:51] LABS: ANION GAP 4 MEQ/L (8-16); BLOOD UREA NITROGEN 10 MG/DL (7-18); CALCIUM LEVEL 8.1 MG/DL (8.8-10.2); CARBON DIOXIDE LEVEL 28 MEQ/L (21-32); CHLORIDE LEVEL 100 MEQ/L (98-107); CREATININE FOR GFR 1.03 MG/DL (0.55-1.30); GLOMERULAR FILTRATION RATE 55.9 (>39); GLUCOSE, FASTING 80 MG/DL (70-100); SODIUM LEVEL 132 MEQ/L (136-145)
[2017-12-13 18:55] LABS: CPK CREATINE PHOSPHOKINASE 83 U/L (26-192); TROPONIN I < 0.02 NG/ML (< 0.10)
[2017-12-13] MEDS: LABETALOL 100 MG TAB PO (20:18)
[2017-12-13] MEDS: HEPARIN SOD (PORCINE) 5000 UNITS/ML VIAL SC (20:19)
[2017-12-13] MEDS: SUCRALFATE 1 GM TAB PO (20:19)
[2017-12-13] MEDS: OXcarbazepine 150 MG TAB PO (20:19)
[2017-12-13] MEDS: FERROUS SULFATE 325MG TAB PO (20:19)
[2017-12-13] MEDS: guaiFENesin ER 600 MG TAB PO (20:19)
[2017-12-13] MEDS: LEVOTHYROXINE 25MCG TABLET (0.025MG) PO (20:19)
[2017-12-13] MEDS: levETIRAcetam 250MG TABLET (KEPPRA) PO (20:19)
[2017-12-13] MEDS: ATORVASTATIN 20 MG TAB PO (20:19)
[2017-12-13] MEDS ORDERED: RESTASIS 0.05% OU (21:00)
[2017-12-14 00:57] LABS: ANION GAP 6 MEQ/L (8-16); BLOOD UREA NITROGEN 9 MG/DL (7-18); CALCIUM LEVEL 7.9 MG/DL (8.8-10.2); CARBON DIOXIDE LEVEL 24 MEQ/L (21-32); CHLORIDE LEVEL 103 MEQ/L (98-107); CK-MB VALUE MASS 1.2 NG/ML (<3.6); CPK CREATINE PHOSPHOKINASE 85 U/L (26-192); GLOMERULAR FILTRATION RATE 51.8 (>39); GLUCOSE, FASTING 81 MG/DL (70-100); MB/CK RELATIVE INDEX 1.41 (< OR =4); POTASSIUM SERUM 4.2 MEQ/L (3.5-5.1); SODIUM LEVEL 133 MEQ/L (136-145); TROPONIN I < 0.02 NG/ML (< 0.10)
[2017-12-14] MEDS: KCL 20MEQ in NS 1000ML 1,000 ML IV ×2 (01:30→10:44)
[2017-12-14] MEDS: ONDANSETRON 4MG/2ML VIAL (J2405) IV (04:50)
[2017-12-14] MEDS: PERCOCET 5MG/325MG TAB PO (04:50)
[2017-12-14 05:46] LABS: HEMATOCRIT 27.6 % (36.0-47.0); HEMOGLOBIN 9.2 g/dl (12.0-15.5); MEAN CORPUSCULAR HEMOGLOBIN 31.1 pg (27.0-33.0); MEAN CORPUSCULAR HGB CONC 33.3 g/dl (32.0-36.5); MEAN CORPUSCULAR VOLUME 93.2 fl (80.0-96.0); PLATELET COUNT, AUTOMATED 175 10^3/uL (150-450); RED BLOOD COUNT 2.96 10^6/uL (4.00-5.40); RED CELL DISTRIBUTION WIDTH 12.7 % (11.5-14.5); WHITE BLOOD COUNT 3.8 10^3/uL (4.0-10.0)
[2017-12-14 06:10] LABS: ANION GAP 10 MEQ/L (8-16); BLOOD UREA NITROGEN 7 MG/DL (7-18); CALCIUM LEVEL 7.8 MG/DL (8.8-10.2); CARBON DIOXIDE LEVEL 21 MEQ/L (21-32); CHLORIDE LEVEL 104 MEQ/L (98-107); CREATININE FOR GFR 0.87 MG/DL (0.55-1.30); GLOMERULAR FILTRATION RATE > 60.0 (>39); GLUCOSE, FASTING 90 MG/DL (70-100); MAGNESIUM LEVEL 1.5 MG/DL (1.8-2.4); POTASSIUM SERUM 3.7 MEQ/L (3.5-5.1); SODIUM LEVEL 135 MEQ/L (136-145)
[2017-12-14] MEDS: SUCRALFATE 1 GM TAB PO ×2 (08:34→20:36)
[2017-12-14] MEDS: VITAMIN D (CHOLECALCIFEROL) 400 INTERNATIONAL UNITS TAB PO (08:34)
[2017-12-14] MEDS: PANTOPRAZOLE 40MG INJ (PROTONIX) (C9113) IV (08:34)
[2017-12-14] MEDS: VITAMIN B COMPLEX/VIT C CAP PO (08:34)
[2017-12-14] MEDS: HEPARIN SOD (PORCINE) 5000 UNITS/ML VIAL SC (08:34)
[2017-12-14] MEDS: MAGNESIUM CHLORIDE 64 MG TABCR (SLO MAG) PO (08:34)
[2017-12-14] MEDS: guaiFENesin ER 600 MG TAB PO ×2 (08:35→20:36)
[2017-12-14] MEDS: FERROUS SULFATE 325MG TAB PO ×2 (08:35→20:36)
[2017-12-14] MEDS: levETIRAcetam 250MG TABLET (KEPPRA) PO ×2 (08:35→20:36)
[2017-12-14] MEDS: ASCORBIC ACID 500 MG TAB PO (08:35)
[2017-12-14] MEDS: predniSONE 10 MG TAB PO (08:35)
[2017-12-14] MEDS: LABETALOL 100 MG TAB PO ×2 (08:36→20:35)
[2017-12-14 10:01] LABS: POTASSIUM RANDOM URINE 37.1 MEQ/L
[2017-12-14 10:01] LABS: CHLORIDE,RANDOM URINE 121 MEQ/L
[2017-12-14] MEDS: MAGNESIUM OXIDE 400 MG TAB (MAG-OX) PO ×2 (10:44→20:36)
[2017-12-14] MEDS: OSELTAMIVIR PHOSPHATE 75 MG CAP (TAMIFLU) PO ×2 (10:44→20:33)
[2017-12-14 17:00] LABS: HEMATOCRIT 28.4 % (36.0-47.0); HEMOGLOBIN 9.5 g/dl (12.0-15.5)
[2017-12-14] MEDS: KCL 20MEQ IN D5/0.2%NS 1000ML 1,000 ML IV (18:12)
[2017-12-14 18:21] LABS: ANION GAP 8 MEQ/L (8-16); BLOOD UREA NITROGEN 7 MG/DL (7-18); CALCIUM LEVEL 7.6 MG/DL (8.8-10.2); CARBON DIOXIDE LEVEL 22 MEQ/L (21-32); CHLORIDE LEVEL 105 MEQ/L (98-107); CREATININE FOR GFR 0.87 MG/DL (0.55-1.30); GLOMERULAR FILTRATION RATE > 60.0 (>39); GLUCOSE, FASTING 99 MG/DL (70-100); POTASSIUM SERUM 4.7 MEQ/L (3.5-5.1); SODIUM LEVEL 135 MEQ/L (136-145)
[2017-12-14] MEDS: LEVOTHYROXINE 25MCG TABLET (0.025MG) PO (20:33)
[2017-12-14] MEDS: ATORVASTATIN 20 MG TAB PO (20:36)
[2017-12-14] MEDS: OXcarbazepine 150 MG TAB PO (20:36)
[2017-12-15] MEDS: KCL 20MEQ IN D5/0.2%NS 1000ML 1,000 ML IV ×2 (03:26→14:00)
[2017-12-15 05:08] LABS: HEMOGLOBIN 9.1 g/dl (12.0-15.5); MEAN CORPUSCULAR HEMOGLOBIN 30.7 pg (27.0-33.0); MEAN CORPUSCULAR HGB CONC 32.5 g/dl (32.0-36.5); MEAN CORPUSCULAR VOLUME 94.6 fl (80.0-96.0); PLATELET COUNT, AUTOMATED 165 10^3/uL (150-450); RED BLOOD COUNT 2.96 10^6/uL (4.00-5.40); RED CELL DISTRIBUTION WIDTH 12.8 % (11.5-14.5); WHITE BLOOD COUNT 3.5 10^3/uL (4.0-10.0)
[2017-12-15 05:35] LABS: ANION GAP 7 MEQ/L (8-16); BLOOD UREA NITROGEN 5 MG/DL (7-18); CALCIUM LEVEL 8.2 MG/DL (8.8-10.2); CARBON DIOXIDE LEVEL 24 MEQ/L (21-32); CHLORIDE LEVEL 104 MEQ/L (98-107); CREATININE FOR GFR 0.77 MG/DL (0.55-1.30); GLOMERULAR FILTRATION RATE > 60.0 (>39); GLUCOSE, FASTING 102 MG/DL (70-100); SODIUM LEVEL 135 MEQ/L (136-145)
[2017-12-15] MEDS: predniSONE 10 MG TAB PO (09:03)
[2017-12-15] MEDS: LABETALOL 100 MG TAB PO ×2 (09:03→20:43)
[2017-12-15] MEDS: OSELTAMIVIR PHOSPHATE 75 MG CAP (TAMIFLU) PO ×2 (09:03→20:44)
[2017-12-15] MEDS: PANTOPRAZOLE 40MG INJ (PROTONIX) (C9113) IV (09:03)
[2017-12-15] MEDS: SUCRALFATE 1 GM TAB PO ×2 (09:04→20:44)
[2017-12-15] MEDS: ASCORBIC ACID 500 MG TAB PO (09:04)
[2017-12-15] MEDS: levETIRAcetam 250MG TABLET (KEPPRA) PO ×2 (09:04→20:43)
[2017-12-15] MEDS: FERROUS SULFATE 325MG TAB PO ×2 (09:04→20:43)
[2017-12-15] MEDS: MAGNESIUM OXIDE 400 MG TAB (MAG-OX) PO ×2 (09:04→20:45)
[2017-12-15] MEDS: VITAMIN D (CHOLECALCIFEROL) 400 INTERNATIONAL UNITS TAB PO (09:04)
[2017-12-15] MEDS: VITAMIN B COMPLEX/VIT C CAP PO (09:04)
[2017-12-15] MEDS: guaiFENesin ER 600 MG TAB PO ×2 (09:04→20:44)
[2017-12-15] MEDS: MAGNESIUM CHLORIDE 64 MG TABCR (SLO MAG) PO (09:05)
[2017-12-15] MEDS: LOMOTIL 2.5MG/0.025MG TABLET PO (18:43)
[2017-12-15] MEDS: KCL 20MEQ IN D5/NS 1000ML 1,000 ML IV (18:56)
[2017-12-15] MEDS: PERCOCET 5MG/325MG TAB PO (20:42)
[2017-12-15] MEDS: LEVOTHYROXINE 25MCG TABLET (0.025MG) PO (20:43)
[2017-12-15] MEDS: OXcarbazepine 150 MG TAB PO (20:43)
[2017-12-15] MEDS: ATORVASTATIN 20 MG TAB PO (20:44)
[2017-12-16 04:07] LABS: HEMATOCRIT 27.3 % (36.0-47.0); MEAN CORPUSCULAR HEMOGLOBIN 31.1 pg (27.0-33.0); MEAN CORPUSCULAR VOLUME 94.5 fl (80.0-96.0); PLATELET COUNT, AUTOMATED 172 10^3/uL (150-450); RED BLOOD COUNT 2.89 10^6/uL (4.00-5.40); RED CELL DISTRIBUTION WIDTH 12.8 % (11.5-14.5); WHITE BLOOD COUNT 3.5 10^3/uL (4.0-10.0)
[2017-12-16 04:19] LABS: ANION GAP 5 MEQ/L (8-16); BLOOD UREA NITROGEN 2 MG/DL (7-18); CALCIUM LEVEL 8.1 MG/DL (8.8-10.2); CARBON DIOXIDE LEVEL 24 MEQ/L (21-32); CHLORIDE LEVEL 110 MEQ/L (98-107); CREATININE FOR GFR 0.75 MG/DL (0.55-1.30); GLOMERULAR FILTRATION RATE > 60.0 (>39); GLUCOSE, FASTING 110 MG/DL (70-100); MAGNESIUM LEVEL 1.9 MG/DL (1.8-2.4); POTASSIUM SERUM 4.1 MEQ/L (3.5-5.1); SODIUM LEVEL 139 MEQ/L (136-145)
[2017-12-16] MEDS: PERCOCET 5MG/325MG TAB PO ×2 (05:35→18:52)
[2017-12-16] MEDS: KCL 20MEQ IN D5/NS 1000ML 1,000 ML IV (07:39)
[2017-12-16] MEDS ORDERED: PILL CRUSHER/CUTTER 1 EACH XX (08:15)
[2017-12-16] MEDS: SUCRALFATE 1 GM TAB PO ×2 (09:00→20:56)
[2017-12-16] MEDS: ASCORBIC ACID 500 MG TAB PO (09:00)
[2017-12-16] MEDS: VITAMIN D (CHOLECALCIFEROL) 400 INTERNATIONAL UNITS TAB PO (09:00)
[2017-12-16] MEDS: VITAMIN B COMPLEX/VIT C CAP PO (09:00)
[2017-12-16] MEDS: FERROUS SULFATE 325MG TAB PO ×2 (09:00→20:58)
[2017-12-16] MEDS: MAGNESIUM CHLORIDE 64 MG TABCR (SLO MAG) PO (09:00)
[2017-12-16] MEDS: PANTOPRAZOLE 40MG INJ (PROTONIX) (C9113) IV (09:00)
[2017-12-16] MEDS: predniSONE 10 MG TAB PO (09:01)
[2017-12-16] MEDS: OSELTAMIVIR PHOSPHATE 75 MG CAP (TAMIFLU) PO ×2 (09:01→20:56)
[2017-12-16] MEDS: MAGNESIUM OXIDE 400 MG TAB (MAG-OX) PO ×2 (09:01→20:59)
[2017-12-16] MEDS: guaiFENesin ER 600 MG TAB PO ×2 (09:02→20:58)
[2017-12-16] MEDS: levETIRAcetam 250MG TABLET (KEPPRA) PO ×2 (09:02→20:59)
[2017-12-16] MEDS: LABETALOL 100 MG TAB PO ×2 (09:16→20:58)
[2017-12-16] MEDS: LISINOPRIL 20 MG TAB PO (17:13)
[2017-12-16] MEDS: OXcarbazepine 150 MG TAB PO (20:56)
[2017-12-16] MEDS: LEVOTHYROXINE 25MCG TABLET (0.025MG) PO (20:56)
[2017-12-16] MEDS: ATORVASTATIN 20 MG TAB PO (20:59)
[2017-12-16] MEDS: MORPHINE 4 MG/ML 1ML VIAL/SYRINGE (J2270) IV ×2 (22:48→23:00)
[2017-12-17 05:12] LABS: HEMATOCRIT 29.9 % (36.0-47.0); HEMOGLOBIN 9.9 g/dl (12.0-15.5); MEAN CORPUSCULAR HEMOGLOBIN 31.2 pg (27.0-33.0); MEAN CORPUSCULAR HGB CONC 33.1 g/dl (32.0-36.5); MEAN CORPUSCULAR VOLUME 94.3 fl (80.0-96.0); PLATELET COUNT, AUTOMATED 229 10^3/uL (150-450); RED BLOOD COUNT 3.17 10^6/uL (4.00-5.40); RED CELL DISTRIBUTION WIDTH 12.7 % (11.5-14.5); WHITE BLOOD COUNT 4.5 10^3/uL (4.0-10.0)
[2017-12-17 05:33] LABS: ANION GAP 5 MEQ/L (8-16); BLOOD UREA NITROGEN 3 MG/DL (7-18); CALCIUM LEVEL 8.6 MG/DL (8.8-10.2); CARBON DIOXIDE LEVEL 28 MEQ/L (21-32); CHLORIDE LEVEL 104 MEQ/L (98-107); CREATININE FOR GFR 0.83 MG/DL (0.55-1.30); GLOMERULAR FILTRATION RATE > 60.0 (>39); GLUCOSE, FASTING 97 MG/DL (70-100); MAGNESIUM LEVEL 2.1 MG/DL (1.8-2.4); SODIUM LEVEL 137 MEQ/L (136-145)
[2017-12-17] MEDS: ONDANSETRON 4MG/2ML VIAL (J2405) IV ×2 (07:50→13:39)
[2017-12-17] MEDS: PERCOCET 5MG/325MG TAB PO (08:40)
[2017-12-17] MEDS: MAGNESIUM CHLORIDE 64 MG TABCR (SLO MAG) PO (09:00)
[2017-12-17] MEDS: VITAMIN D (CHOLECALCIFEROL) 400 INTERNATIONAL UNITS TAB PO (10:23)
[2017-12-17] MEDS: guaiFENesin ER 600 MG TAB PO ×2 (10:23→21:00)
[2017-12-17] MEDS: PANTOPRAZOLE 40MG INJ (PROTONIX) (C9113) IV (10:23)
[2017-12-17] MEDS: levETIRAcetam 250MG TABLET (KEPPRA) PO ×2 (10:24→21:00)
[2017-12-17] MEDS: VITAMIN B COMPLEX/VIT C CAP PO (10:24)
[2017-12-17] MEDS: predniSONE 10 MG TAB PO (10:24)
[2017-12-17] MEDS: LISINOPRIL 40 MG TAB PO (10:24)
[2017-12-17] MEDS: FERROUS SULFATE 325MG TAB PO ×2 (10:24→21:00)
[2017-12-17] MEDS: ASCORBIC ACID 500 MG TAB PO (10:24)
[2017-12-17] MEDS: MAGNESIUM OXIDE 400 MG TAB (MAG-OX) PO ×2 (10:25→21:00)
[2017-12-17] MEDS: OSELTAMIVIR PHOSPHATE 75 MG CAP (TAMIFLU) PO ×2 (10:25→21:15)
[2017-12-17] MEDS: SUCRALFATE 1 GM TAB PO ×2 (10:25→21:00)
[2017-12-17] MEDS: LABETALOL 100 MG TAB PO ×2 (10:26→21:14)
[2017-12-17] MEDS: LEVOTHYROXINE 25MCG TABLET (0.025MG) PO (21:00)
[2017-12-17] MEDS: OXcarbazepine 150 MG TAB PO (21:00)
[2017-12-17] MEDS: ATORVASTATIN 20 MG TAB PO (21:00)
[2017-12-18 05:45] LABS: HEMATOCRIT 30.4 % (36.0-47.0); MEAN CORPUSCULAR HGB CONC 32.9 g/dl (32.0-36.5); MEAN CORPUSCULAR VOLUME 94.1 fl (80.0-96.0); PLATELET COUNT, AUTOMATED 258 10^3/uL (150-450); RED BLOOD COUNT 3.23 10^6/uL (4.00-5.40); RED CELL DISTRIBUTION WIDTH 12.7 % (11.5-14.5); WHITE BLOOD COUNT 4.7 10^3/uL (4.0-10.0)
[2017-12-18 06:11] LABS: ANION GAP 6 MEQ/L (8-16); BLOOD UREA NITROGEN 4 MG/DL (7-18); CALCIUM LEVEL 9.1 MG/DL (8.8-10.2); CARBON DIOXIDE LEVEL 29 MEQ/L (21-32); CHLORIDE LEVEL 101 MEQ/L (98-107); GLOMERULAR FILTRATION RATE > 60.0 (>39); GLUCOSE, FASTING 94 MG/DL (70-100); POTASSIUM SERUM 4.4 MEQ/L (3.5-5.1); SODIUM LEVEL 136 MEQ/L (136-145)
[2017-12-18] MEDS: FERROUS SULFATE 325MG TAB PO ×2 (09:16→19:57)
[2017-12-18] MEDS: ONDANSETRON 4MG/2ML VIAL (J2405) IV ×2 (09:16→19:57)
[2017-12-18] MEDS: PANTOPRAZOLE 40MG INJ (PROTONIX) (C9113) IV (09:16)
[2017-12-18] MEDS: LABETALOL 100 MG TAB PO ×2 (09:16→19:55)
[2017-12-18] MEDS: MAGNESIUM CHLORIDE 64 MG TABCR (SLO MAG) PO (09:16)
[2017-12-18] MEDS: LISINOPRIL 40 MG TAB PO (09:16)
[2017-12-18] MEDS: MAGNESIUM OXIDE 400 MG TAB (MAG-OX) PO ×2 (09:17→19:55)
[2017-12-18] MEDS: VITAMIN D (CHOLECALCIFEROL) 400 INTERNATIONAL UNITS TAB PO (09:17)
[2017-12-18] MEDS: levETIRAcetam 250MG TABLET (KEPPRA) PO ×2 (09:17→19:55)
[2017-12-18] MEDS: SUCRALFATE 1 GM TAB PO ×2 (09:17→19:55)
[2017-12-18] MEDS: VITAMIN B COMPLEX/VIT C CAP PO (09:17)
[2017-12-18] MEDS: ASCORBIC ACID 500 MG TAB PO (09:18)
[2017-12-18] MEDS: PERCOCET 5MG/325MG TAB PO ×2 (09:18→19:57)
[2017-12-18] MEDS: guaiFENesin ER 600 MG TAB PO ×2 (09:18→19:57)
[2017-12-18] MEDS: OSELTAMIVIR PHOSPHATE 75 MG CAP (TAMIFLU) PO ×2 (09:18→19:56)
[2017-12-18] MEDS: predniSONE 10 MG TAB PO (09:18)
[2017-12-18] MEDS: ATORVASTATIN 20 MG TAB PO (19:56)
[2017-12-18] MEDS: OXcarbazepine 150 MG TAB PO (19:56)
[2017-12-18] MEDS: LEVOTHYROXINE 25MCG TABLET (0.025MG) PO (19:56)
[2017-12-19 05:55] LABS: HEMATOCRIT 29.3 % (36.0-47.0); HEMOGLOBIN 9.7 g/dl (12.0-15.5); MEAN CORPUSCULAR HEMOGLOBIN 31.3 pg (27.0-33.0); MEAN CORPUSCULAR HGB CONC 33.1 g/dl (32.0-36.5); MEAN CORPUSCULAR VOLUME 94.5 fl (80.0-96.0); PLATELET COUNT, AUTOMATED 282 10^3/uL (150-450); RED CELL DISTRIBUTION WIDTH 12.8 % (11.5-14.5); WHITE BLOOD COUNT 6.2 10^3/uL (4.0-10.0)
[2017-12-19 06:22] LABS: ANION GAP 7 MEQ/L (8-16); BLOOD UREA NITROGEN 7 MG/DL (7-18); CALCIUM LEVEL 8.6 MG/DL (8.8-10.2); CARBON DIOXIDE LEVEL 31 MEQ/L (21-32); CHLORIDE LEVEL 100 MEQ/L (98-107); CREATININE FOR GFR 1.09 MG/DL (0.55-1.30); GLOMERULAR FILTRATION RATE 52.4 (>39); GLUCOSE, FASTING 86 MG/DL (70-100); MAGNESIUM LEVEL 2.5 MG/DL (1.8-2.4); POTASSIUM SERUM 3.9 MEQ/L (3.5-5.1); SODIUM LEVEL 138 MEQ/L (136-145)
[2017-12-19] MEDS: PANTOPRAZOLE 40MG INJ (PROTONIX) (C9113) IV (09:42)
[2017-12-19] MEDS: OSELTAMIVIR PHOSPHATE 75 MG CAP (TAMIFLU) PO ×2 (09:43→21:00)
[2017-12-19] MEDS: predniSONE 10 MG TAB PO (09:43)
[2017-12-19] MEDS: SUCRALFATE 1 GM TAB PO ×2 (09:43→21:01)
[2017-12-19] MEDS: VITAMIN D (CHOLECALCIFEROL) 400 INTERNATIONAL UNITS TAB PO (09:43)
[2017-12-19] MEDS: VITAMIN B COMPLEX/VIT C CAP PO (09:43)
[2017-12-19] MEDS: levETIRAcetam 250MG TABLET (KEPPRA) PO ×2 (09:43→21:00)
[2017-12-19] MEDS: ASCORBIC ACID 500 MG TAB PO (09:44)
[2017-12-19] MEDS: LABETALOL 100 MG TAB PO ×2 (09:44→21:01)
[2017-12-19] MEDS: guaiFENesin ER 600 MG TAB PO ×2 (09:44→21:02)
[2017-12-19] MEDS: FERROUS SULFATE 325MG TAB PO ×2 (09:44→21:01)
[2017-12-19] MEDS: LISINOPRIL 40 MG TAB PO (09:44)
[2017-12-19] MEDS: LOMOTIL 2.5MG/0.025MG TABLET PO (14:53)
[2017-12-19] MEDS: PERCOCET 5MG/325MG TAB PO (14:54)
[2017-12-19] MEDS: OXcarbazepine 150 MG TAB PO (21:00)
[2017-12-19] MEDS: ATORVASTATIN 20 MG TAB PO (21:01)
[2017-12-19] MEDS: LEVOTHYROXINE 25MCG TABLET (0.025MG) PO (21:01)
[2017-12-20 05:34] LABS: HEMOGLOBIN 9.5 g/dl (12.0-15.5); MEAN CORPUSCULAR HEMOGLOBIN 31.1 pg (27.0-33.0); MEAN CORPUSCULAR HGB CONC 32.8 g/dl (32.0-36.5); MEAN CORPUSCULAR VOLUME 95.1 fl (80.0-96.0); PLATELET COUNT, AUTOMATED 269 10^3/uL (150-450); RED BLOOD COUNT 3.05 10^6/uL (4.00-5.40); RED CELL DISTRIBUTION WIDTH 12.8 % (11.5-14.5); WHITE BLOOD COUNT 7.1 10^3/uL (4.0-10.0)
[2017-12-20 05:53] LABS: ANION GAP 6 MEQ/L (8-16); BLOOD UREA NITROGEN 8 MG/DL (7-18); CALCIUM LEVEL 8.6 MG/DL (8.8-10.2); CARBON DIOXIDE LEVEL 30 MEQ/L (21-32); CHLORIDE LEVEL 102 MEQ/L (98-107); CREATININE FOR GFR 1.02 MG/DL (0.55-1.30); GLOMERULAR FILTRATION RATE 56.6 (>39); GLUCOSE, FASTING 86 MG/DL (70-100); MAGNESIUM LEVEL 2.1 MG/DL (1.8-2.4); POTASSIUM SERUM 3.8 MEQ/L (3.5-5.1); SODIUM LEVEL 138 MEQ/L (136-145)
[2017-12-20] MEDS: PANTOPRAZOLE 40MG INJ (PROTONIX) (C9113) IV (09:33)
[2017-12-20] MEDS: ASCORBIC ACID 500 MG TAB PO (09:33)
[2017-12-20] MEDS: FERROUS SULFATE 325MG TAB PO (09:33)
[2017-12-20] MEDS: levETIRAcetam 250MG TABLET (KEPPRA) PO (09:34)
[2017-12-20] MEDS: LABETALOL 100 MG TAB PO (09:34)
[2017-12-20] MEDS: predniSONE 10 MG TAB PO (09:34)
[2017-12-20] MEDS: LISINOPRIL 40 MG TAB PO (09:34)
[2017-12-20] MEDS: VITAMIN D (CHOLECALCIFEROL) 400 INTERNATIONAL UNITS TAB PO (09:34)
[2017-12-20] MEDS: OSELTAMIVIR PHOSPHATE 75 MG CAP (TAMIFLU) PO (09:34)
[2017-12-20] MEDS: SUCRALFATE 1 GM TAB PO (09:34)
[2017-12-20] MEDS: VITAMIN B COMPLEX/VIT C CAP PO (09:34)
[2017-12-20] MEDS: guaiFENesin ER 600 MG TAB PO (09:34)
[2017-12-21 00:07] LABS: SODIUM FECAL 110 mmol/L (.)
[2017-12-21 00:07] LABS: CHLORIDE FECAL 135 mmol/L (.); OSMOLARITY STOOL 496 mOsmol/kg (Not Estab.); POTASSIUM FECAL 40 mmol/L (.)
== END 2017-12-20 13:30 | disposition home or self-care (01) | DRG 866 ==
LOC: M MS5PR 12-17 18:11 → M ED 10:38 → M ED INP 13:54 → M PCU 17:55
DX: J09.X3 Influenza due to identified novel influenza A virus with gastrointestinal manifestations (principal); E87.1 Hypo-osmolality and hyponatremia; K51.90 Ulcerative colitis, unspecified, without complications; Z85.038 Personal history of other malignant neoplasm of large intestine; I25.10 Atherosclerotic heart disease of native coronary artery without angina pectoris; I10 Essential (primary) hypertension; M06.9 Rheumatoid arthritis, unspecified; M79.7 Fibromyalgia; G40.909 Epilepsy, unspecified, not intractable, without status epilepticus; Z79.899 Other long term (current) drug therapy; Z88.8 Allergy status to other drugs, medicaments and biological substances; Z91.041 Radiographic dye allergy status; Z91.018 Allergy to other foods; Z88.7 Allergy status to serum and vaccine; F31.9 Bipolar disorder, unspecified; M35.00 Sjogren syndrome, unspecified

== ENCOUNTER → 2018-02-05 | Outpatient (REF) | payer OTHER, MEDICAID ==
[2018-02-05 19:28] LABS: ALBUMIN 3.8 GM/DL (3.2-5.2); ALKALINE PHOSPHATASE 42 U/L (45-117); ALT/SGPT 22 U/L (12-78); AST/SGOT 17 U/L (7-37); BILIRUBIN,TOTAL 0.4 MG/DL (0.2-1.0); BLOOD UREA NITROGEN 8 MG/DL (7-18); CARBON DIOXIDE LEVEL 29 MEQ/L (21-32); CHLORIDE LEVEL 100 MEQ/L (98-107); CREATININE FOR GFR 1.11 MG/DL (0.55-1.30); FREE T4 0.74 NG/DL (0.76-1.46); GLUCOSE, FASTING 82 MG/DL (70-100); SODIUM LEVEL 138 MEQ/L (136-145); TOTAL PROTEIN 6.5 GM/DL (6.4-8.2)
[2018-02-05 20:05] LABS: ALBUMIN/GLOBULIN RATIO 1.41 (1.00-1.93); ANION GAP 9 MEQ/L (8-16)
== END ==
LOC: M LAB REF 17:48
DX: E03.9 Hypothyroidism, unspecified (principal); E87.1 Hypo-osmolality and hyponatremia
CPT/HCPCS: 84443

== ENCOUNTER → 2018-02-15 | Outpatient (REF) | payer MEDICARE, MEDICAID | LOC: M LAB REF 13:00 | DX: D64.9 Anemia, unspecified (principal) | CPT/HCPCS: 88300 ==

== ENCOUNTER → 2018-04-30 | Outpatient (REF) | payer MEDICARE, MEDICAID, OTHER ==
[2018-04-30 18:57] LABS: HEMATOCRIT 33.3 % (36.0-47.0)
[2018-04-30 23:07] LABS: FERRITIN 23 NG/ML (8-252); IRON (FE) 102 UG/DL (50-170); TOTAL IRON BINDING CAPACITY 337 UG/DL (250-450)
[2018-05-01 00:32] LABS: PERCENT SATURATION 30.3 % (13.2-45.0)
[2018-05-01 16:19] LABS: PRETREATED FOLATE FOR RBCFOL 18.7 NG/ML; RBC FOLATE 1179.3 NG/ML (280-791)
== END ==
LOC: M LAB REF 17:39
DX: D50.9 Iron deficiency anemia, unspecified (principal); Z85.038 Personal history of other malignant neoplasm of large intestine
CPT/HCPCS: 83550

== ENCOUNTER 2018-11-26 10:50 | Emergency (ER) | payer MEDICARE, MEDICAID ==
[~2018-11-26] VITALS: Ht 162.6 cm; Wt 63.6 kg
[~2018-11-26 10:50] MED LIST changes: -/PANT40TA; -/PANT40TA OR; +BACL10TA2 PO; +BENA25CA4 PO; +FIBE625T22 PO; +LISI-538 PO; +MAGN64TASA PO; +NITR4TASL SL; -OXCA150T PO; +OXCA150T21 PO; -PANT40TA2 PO; +PANT40TA3 PO; +POTA99TA PO; +PROT1TAB2; +PROT1TAB2 OR; -SENN1TAB2 PO; +SENN1TAB40 PO; -SODI1TA PO; +SODI1TAB12 PO; +SUCR1TAB56 PO; +TYLE500T78 PO; +VENTAER INH; +VITA500T PO
[2018-11-26] MEDS ORDERED: NORCO, ANEXSIA 5/325MG TABLET (HYDROcodone/ACETAMINOPHEN) PO ONE (11:45)
[2018-11-26] MEDS ORDERED: NORC1TAB7 PO (13:39)
[2018-11-26 14:03] VITALS: BP 181/86
--- NOTE | 2018-11-26 17:31 | REP ---
Lumbar spine series: Five views. History: Recent fall. Increased left SI joint pain. Findings: Lumbar vertebral body heights are preserved. Alignment is normal. No fracture or collapse is seen. There are degenerative disc changes at L1-2, L2-3, L4-5, and L5-S1. Pedicles and posterior elements are intact. There is osteoarthritic facet hypertrophy and some sclerosis bilaterally at L5-S1 and L4-5. Sacrum appears intact. SI joints are unremarkable. There is advanced osteoarthritis affecting the right hip. Lips and sutures are seen scattered in the abdomen. The bowel gas pattern is unremarkable. Impression: No acute bony abnormality. Advanced osteoarthritis right hip. Degenerative disc and osteoarthritic facet changes in the lumbar spine. Electronically Signed by Ben Mojica MD 11/26/2018 05:23 P
== END 2018-11-26 14:14 | disposition home or self-care (01) ==
LOC: M ED 10:50 → EDBD 10:50 → M ED 14:14
DX: M54.42 Lumbago with sciatica, left side (principal)

== ENCOUNTER → 2019-02-05 | Outpatient (CLI) | payer MEDICARE, MEDICAID ==
[~2019-02-05] MED LIST changes: +NORC1TAB7 PO
--- NOTE | 2019-02-05 14:17 | NUR ---
ST recommends patient be placed on a level 2 soft diet with thin liquids. Medication should be crushed with puree assist. Therapy is recommended as an outpatient for dysphagia management. Addendum: 02/05/19 at 1418 by IRINA MOELLER Amended: Links added.
--- NOTE | 2019-02-05 14:52 | REP ---
Examination Requested: Cookie Swallow Reason For Exam: Dysphasia The procedure was performed by HITEHS Middleton, under the direct supervision of Dr. Trejo. The procedure was performed with Ramonita Amin and Luz Marina Aguilar from speech pathology present. 5 ml aliquots of thin, pudding, mixed fruit, puree, soft food, hard food, and pill consistency barium was administered. Flash penetration without aspiration was visualized when the patient drank thin and mixed fruit consistency barium. The detailed report of this examination will be provided by speech pathology. 2.1 minutes of fluoroscopy time was utilized for this procedure. Reviewed by HITESH Tellez 02/05/2019 12:02 P Electronically Signed by Yordy Trejo MD 02/05/2019 02:44 P
== END ==
LOC: M ST 10:56
PROVIDERS: ATTEND Physician Assistant Medical
DX: R13.10 Dysphagia, unspecified (principal)

== ENCOUNTER → 2019-04-30 | Outpatient (CLI) | payer MEDICARE, MEDICAID ==
[~2019-04-30] MED LIST changes: +CLOP75TA2 PO; +XELJ11TA PO
--- NOTE | 2019-04-30 14:16 | REPMRS ---
Patient History The patient states she had a clinical breast exam in 2018.Family history of unknown cancer at age 50 or over in father, colorectal cancer at age 50 or over in paternal grandfather, prostate cancer at age 50 or over in maternal uncle. 3D TOMOSYNTHESIS WAS PERFORMED. The Sampson Mata lifetime risk for breast cancer is 2.9%. Digital Mammo Screening Bilat: April 30, 2019 - Exam #: [id number] Bilateral CC and MLO view(s) were taken. Technologist: Colette Steele, Technologist Prior study comparison: July 28, 2017, bilateral digital mammo screening bilat performed at [facility]. November 16, 2015, bilateral digital mammo screening bilat performed at [facility]. FINDINGS: There are scattered fibroglandular densities. There has been no change in the appearance of the mammogram from the prior studies. There is a mild amount of residual fibroglandular tissue which is fairly symmetric. There is no interval development of dominant mass, architectural distortion, or clustered microcalcification suggestive of malignancy. Assessment: BI-RADS/ACR category 1 mammogram. Negative Mammogram. Recommendation Routine screening mammogram in 1 year (for women over age 40). This mammogram was interpreted with the aid of an FDA-approved computer-aided dectection system. Electronically Signed By: Yordy Nicole MD 04/30/19 [id number]
== END ==
LOC: M RAD 13:26
PROVIDERS: ATTEND Internal Medicine
DX: Z12.31 Encounter for screening mammogram for malignant neoplasm of breast (principal); Z85.038 Personal history of other malignant neoplasm of large intestine

== ENCOUNTER → 2019-05-08 | Outpatient (CLI) | payer MEDICARE, MEDICAID ==
[~2019-05-08] MED LIST changes: +READI-CAT 2 As Ordered ONE; +SENN-53 PO; -SENN1TAB40 PO
--- NOTE | 2019-05-09 08:11 | REP ---
Clinical: History of colon cancer with rising CEA levels. Technique: Axial noncontrast images from the lung bases to the pubic symphysis with coronal and sagittal re-formations. Comparison: 12/18/2017. Findings: Lung bases are clear. Visualized heart and pericardium normal. Liver, spleen, pancreas, gallbladder, bilateral adrenal glands and right kidney appear normal. Transplant kidney identified in the left jagdeep pelvis appears grossly normal. The enteric system demonstrates prior partial resection and anastomoses in the right lower quadrant with findings to suggest near total colectomy. Small bowel appears normal. Pelvis demonstrates normal bladder and evidence of prior hysterectomy. No ascites. No mass. No obvious metastatic disease or adenopathy. Abdominal aorta demonstrates atherosclerotic changes without aneurysm or dissection. Musculoskeletal structures demonstrate age-related changes along with asymmetric significant degenerative changes to the right hip. Impression: 1. Evidence for prior colonic resection with ileosigmoid anastomosis and no evidence for bowel obstruction or acute process. 2. No evidence for adenopathy, metastasis, obvious recurrence/mass, or ascites. 3. Transplant kidney in the left jagdeep pelvis appears grossly normal. Electronically Signed by Sunday Wild MD 05/09/2019 08:02 A
== END ==
LOC: M RAD 12:00
PROVIDERS: ATTEND Internal Medicine Hematology & Oncology
DX: Z85.038 Personal history of other malignant neoplasm of large intestine (principal); Z98.0 Intestinal bypass and anastomosis status; Z94.0 Kidney transplant status

== ENCOUNTER → 2019-09-11 | Outpatient (REF) | payer MEDICARE, MEDICAID ==
[~2019-09-11] MED LIST changes: -READI-CAT 2 As Ordered ONE
== END ==
LOC: M LAB REF 17:02
PROVIDERS: ATTEND Plastic Surgery Surgery of the Hand
DX: L82.1 Other seborrheic keratosis (principal); D22.5 Melanocytic nevi of trunk

== ENCOUNTER → 2019-09-13 | Outpatient (REF) | payer MEDICARE, MEDICAID ==
[2019-09-13 18:09] LABS: FREE T4 0.77 NG/DL (0.76-1.46); THYROID STIMULATING HORMONE 1.15 uIU/ML (0.358-3.740)
== END ==
LOC: M LAB REF 17:13
PROVIDERS: ATTEND Nurse Practitioner Family
DX: E03.9 Hypothyroidism, unspecified (principal)

== ENCOUNTER 2019-09-25 11:21 | Emergency (ER) | payer MEDICARE, MEDICAID ==
[~2019-09-25] VITALS: Ht 170.2 cm; Wt 65.9 kg
[2019-09-25] MEDS ORDERED: IRON27TA2 PO (11:47)
[2019-09-25] MEDS ORDERED: LATA0.0015 OU (11:47)
[2019-09-25] MEDS ORDERED: TORS5TAB2 PO (11:47)
[2019-09-25 12:45] LABS: BASO % 0.2 % (0.0-1.0); EOS # 0.1 10^3/uL (0.0-0.5); EOS % 1.7 % (0.0-3.0); HEMATOCRIT 32.3 % (36.0-47.0); HEMOGLOBIN 10.8 g/dl (12.0-15.5); LYMPH # 1.2 10^3/uL (1.5-5.0); LYMPH % 17.6 % (24.0-44.0); MEAN CORPUSCULAR HEMOGLOBIN 33.3 pg (27.0-33.0); MEAN CORPUSCULAR HGB CONC 33.4 g/dl (32.0-36.5); MEAN CORPUSCULAR VOLUME 99.7 fl (80.0-96.0); MONO # 0.7 10^3/uL (0.0-0.8); MONO % 10.3 % (0.0-5.0); NEUTROPHILS # 4.6 10^3/uL (1.5-8.5); NEUTROPHILS % 69.6 % (36.0-66.0); PLATELET COUNT, AUTOMATED 203 10^3/uL (150-450); RED BLOOD COUNT 3.24 10^6/uL (4.00-5.40); WHITE BLOOD COUNT 6.6 10^3/uL (4.0-10.0)
[2019-09-25 13:20] LABS: ALBUMIN 3.8 GM/DL (3.2-5.2); ALT/SGPT 21 U/L (12-78); BILIRUBIN,DIRECT 0.1 MG/DL (0.0-0.2); BILIRUBIN,TOTAL 0.3 MG/DL (0.2-1.0); BLOOD UREA NITROGEN 7 MG/DL (7-18); CALCIUM LEVEL 8.7 MG/DL (8.8-10.2); CARBON DIOXIDE LEVEL 31 MEQ/L (21-32); CHLORIDE LEVEL 95 MEQ/L (98-107); CK-MB VALUE MASS 1.4 NG/ML (<3.6); CPK CREATINE PHOSPHOKINASE 109 U/L (26-192); CREATININE FOR GFR 0.95 MG/DL (0.55-1.30); GLOMERULAR FILTRATION RATE > 60.0 (>39); GLUCOSE, FASTING 98 MG/DL (70-100); MB/CK RELATIVE INDEX 1.28 (< OR =4); POTASSIUM SERUM 3.6 MEQ/L (3.5-5.1); SODIUM LEVEL 130 MEQ/L (136-145); TOTAL PROTEIN 6.5 GM/DL (6.4-8.2); TROPONIN I < 0.02 NG/ML (< 0.10)
[2019-09-25 14:19] LABS: INFLUENZA A AMPLIFICATION NEGATIVE (NEGATIVE); INFLUENZA B AMPLIFICATION NEGATIVE (NEGATIVE)
--- NOTE | 2019-09-25 15:07 | ECGEPIP ---
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
[2019-09-25] MEDS ORDERED: AZIT500T5 PO (15:30)
[2019-09-25 15:45] VITALS: BP 171/72
== END 2019-09-25 16:01 | disposition home or self-care (01) ==
LOC: EDBD 11:21 → M ED 11:21
DX: J44.9 Chronic obstructive pulmonary disease, unspecified (principal); R55 Syncope and collapse; I12.9 Hypertensive chronic kidney disease with stage 1 through stage 4 chronic kidney disease, or unspecified chronic kidney disease; N18.3 Chronic kidney disease, stage 3 (moderate); K51.90 Ulcerative colitis, unspecified, without complications; M06.9 Rheumatoid arthritis, unspecified; Z79.899 Other long term (current) drug therapy; Z88.7 Allergy status to serum and vaccine; Z88.8 Allergy status to other drugs, medicaments and biological substances; Z91.018 Allergy to other foods; Z91.041 Radiographic dye allergy status; Z91.048 Other nonmedicinal substance allergy status; F17.210 Nicotine dependence, cigarettes, uncomplicated

== ENCOUNTER 2019-11-22 12:47 | Emergency (ER) | payer MEDICARE, MEDICAID ==
[~2019-11-22] VITALS: Ht 162.6 cm; Wt 65.5 kg
[~2019-11-22 12:47] MED LIST changes: +AZIT500T5 PO; +IRON27TA2 PO; +LATA0.0015 OU; +TORS5TAB2 PO
[2019-11-22 13:13] LABS: BASO % 0.3 % (0.0-1.0); EOS # 0.1 10^3/uL (0.0-0.5); HEMATOCRIT 30.9 % (36.0-47.0); HEMOGLOBIN 10.7 g/dl (12.0-15.5); LYMPH # 0.8 10^3/uL (1.5-5.0); LYMPH % 23.3 % (24.0-44.0); MEAN CORPUSCULAR HEMOGLOBIN 34.1 pg (27.0-33.0); MEAN CORPUSCULAR HGB CONC 34.6 g/dl (32.0-36.5); MEAN CORPUSCULAR VOLUME 98.4 fl (80.0-96.0); MONO # 0.5 10^3/uL (0.0-0.8); MONO % 13.8 % (0.0-5.0); NEUTROPHILS # 2.1 10^3/uL (1.5-8.5); NEUTROPHILS % 60.3 % (36.0-66.0); PLATELET COUNT, AUTOMATED 231 10^3/uL (150-450); RED BLOOD COUNT 3.14 10^6/uL (4.00-5.40); WHITE BLOOD COUNT 3.5 10^3/uL (4.0-10.0)
[2019-11-22] MEDS ORDERED: MELO15TA28 PO (13:22)
[2019-11-22 13:26] LABS: INR 1.17; PROTHROMBIN TIME 14.7 SECONDS (11.8-14.0)
[2019-11-22 13:27] LABS: PARTIAL THROMBOPLASTIN TIME 28.8 SECONDS (25.0-38.4)
[2019-11-22] MEDS ORDERED: NS 500 ML IV ONE (13:30)
[2019-11-22 13:49] LABS: ALBUMIN 3.8 GM/DL (3.2-5.2); ALT/SGPT 25 U/L (12-78); BILIRUBIN,DIRECT < 0.1 MG/DL (0.0-0.2); BILIRUBIN,TOTAL 0.3 MG/DL (0.2-1.0); BLOOD UREA NITROGEN 14 MG/DL (7-18); CALCIUM LEVEL 9.1 MG/DL (8.8-10.2); CARBON DIOXIDE LEVEL 31 MEQ/L (21-32); CHLORIDE LEVEL 101 MEQ/L (98-107); CK-MB VALUE MASS 2.4 NG/ML (<3.6); CPK CREATINE PHOSPHOKINASE 150 U/L (26-192); CREATININE FOR GFR 1.26 MG/DL (0.55-1.30); FREE T4 0.69 NG/DL (0.76-1.46); GLOMERULAR FILTRATION RATE 44.1 (>39); GLUCOSE, FASTING 66 MG/DL (70-100); POTASSIUM SERUM 3.7 MEQ/L (3.5-5.1); SODIUM LEVEL 135 MEQ/L (136-145); TROPONIN I < 0.02 NG/ML (< 0.10)
--- NOTE | 2019-11-22 14:11 | REP ---
CHEST, SINGLE VIEW: COMPARISON: 09/25/2019 There is no evidence of acute infiltrate. No pleural effusion is seen. The heart is normal in size. The mediastinal silhouette is unremarkable. The visualized osseous structures are intact. Multiple metallic clips are seen in the soft tissues of the neck. IMPRESSION: No acute pulmonary disease. Electronically Signed by Yordy Nicole MD 11/22/2019 02:27 P
--- NOTE | 2019-11-22 14:33 | ECGEPIP ---
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
[2019-11-22 17:00] VITALS: BP 164/64
== END 2019-11-22 17:24 | disposition home or self-care (01) ==
LOC: M ED 12:47
DX: R55 Syncope and collapse (principal); I10 Essential (primary) hypertension; I25.10 Atherosclerotic heart disease of native coronary artery without angina pectoris; D64.9 Anemia, unspecified; K51.90 Ulcerative colitis, unspecified, without complications; M35.00 Sjogren syndrome, unspecified; R56.9 Unspecified convulsions; M79.7 Fibromyalgia; F31.9 Bipolar disorder, unspecified; Z88.7 Allergy status to serum and vaccine; Z88.8 Allergy status to other drugs, medicaments and biological substances; Z91.018 Allergy to other foods; Z91.041 Radiographic dye allergy status; Z91.048 Other nonmedicinal substance allergy status; Z79.51 Long term (current) use of inhaled steroids; Z79.899 Other long term (current) drug therapy

== ENCOUNTER → 2019-12-06 | Outpatient (REF) | payer MEDICARE, MEDICAID ==
[~2019-12-06] MED LIST changes: +MELO15TA28 PO; +VITA-243 PO; -VITA500T PO
[2019-12-06 15:59] LABS: BASO % 0.4 % (0.0-1.0); EOS # 0.1 10^3/uL (0.0-0.5); EOS % 2.9 % (0.0-3.0); HEMATOCRIT 33.6 % (36.0-47.0); HEMOGLOBIN 11.2 g/dl (12.0-15.5); LYMPH # 1.1 10^3/uL (1.5-5.0); MEAN CORPUSCULAR HEMOGLOBIN 33.2 pg (27.0-33.0); MEAN CORPUSCULAR HGB CONC 33.3 g/dl (32.0-36.5); MEAN CORPUSCULAR VOLUME 99.7 fl (80.0-96.0); MONO # 0.5 10^3/uL (0.0-0.8); NEUTROPHILS # 3.1 10^3/uL (1.5-8.5); NEUTROPHILS % 63.3 % (36.0-66.0); PLATELET COUNT, AUTOMATED 325 10^3/uL (150-450); RED BLOOD COUNT 3.37 10^6/uL (4.00-5.40); WHITE BLOOD COUNT 4.9 10^3/uL (4.0-10.0)
[2019-12-06 16:14] LABS: ALBUMIN 3.9 GM/DL (3.2-5.2); ALT/SGPT 24 U/L (12-78); BILIRUBIN,TOTAL 0.3 MG/DL (0.2-1.0); BLOOD UREA NITROGEN 6 MG/DL (7-18); CALCIUM LEVEL 9.4 MG/DL (8.8-10.2); CARBON DIOXIDE LEVEL 29 MEQ/L (21-32); CHLORIDE LEVEL 99 MEQ/L (98-107); CHOLESTEROL LEVEL 169 MG/DL (<200); CHOLESTEROL RISK RATIO 2.449 (<5); CREATININE FOR GFR 0.99 MG/DL (0.55-1.30); FOLATE > 24.0 NG/ML; FREE T4 0.81 NG/DL (0.76-1.46); GLOMERULAR FILTRATION RATE 58.2 (>39); GLUCOSE, FASTING 78 MG/DL (70-100); HDL CHOLESTEROL 69 MG/DL (>40); LDL CHOLESTEROL 75 MG/DL (<100); MAGNESIUM LEVEL 1.8 MG/DL (1.8-2.4); NON-HDL-C 100 MG/DL; POTASSIUM SERUM 4.2 MEQ/L (3.5-5.1); SODIUM LEVEL 133 MEQ/L (136-145); TOTAL 25(OH) VITAMIN D 59.9 NG/ML (30.0-100.0); TOTAL PROTEIN 7.1 GM/DL (6.4-8.2); TRIGLYCERIDES LEVEL 123 MG/DL (<150); VITAMIN B12 LEVEL 645 PG/ML
== END ==
LOC: M LAB REF 15:19
PROVIDERS: ATTEND Nurse Practitioner Family
DX: E87.1 Hypo-osmolality and hyponatremia (principal); E03.9 Hypothyroidism, unspecified; E78.2 Mixed hyperlipidemia; R13.10 Dysphagia, unspecified; J44.9 Chronic obstructive pulmonary disease, unspecified; I10 Essential (primary) hypertension; M81.0 Age-related osteoporosis without current pathological fracture

== ENCOUNTER → 2019-12-30 | Outpatient (REF) | payer MEDICARE, MEDICAID ==
[~2019-12-30] MED LIST changes: +PRED5TA PO; +RA B1TAB7 PO; +SM P99TA PO
[2020-01-01 00:07] LABS: LEVETIRACETAM (KEPPRA) 32.5 ug/mL (10.0-40.0)
== END ==
LOC: M LAB REF 13:42
PROVIDERS: ATTEND Physician Assistant Medical
DX: G40.89 Other seizures (principal)

== ENCOUNTER → 2020-01-17 | Outpatient (CLI) | payer MEDICARE, MEDICAID ==
--- NOTE | 2020-01-17 12:40 | REP ---
REASON: MRI clearance. AP and lateral views of the neck soft tissues show innumerable metallic linear radiodensities in the neck soft tissues consistent with surgical clips. Whether or not these metallic surgical clips are MRI safe cannot be determined by plain radiology. Review of the patient's surgical history is necessary. Electronically Signed by Huang Mays DO 01/17/2020 01:04 P
== END ==
LOC: M RAD 10:37
PROVIDERS: ATTEND Psychiatry & Neurology Neurology
DX: Z18.10 Retained metal fragments, unspecified (principal)

== ENCOUNTER → 2020-03-03 | Outpatient (CLI) | payer MEDICARE, MEDICAID ==
[~2020-03-03] MED LIST changes: +CEFD1CAP8 PO; +D-40TAB2 PO; +DOCU100C16 PO; +FERR325T3 PO; +FIBE625T PO; +KLOR10TA76 PO; +LISI30TA4 PO; +PANT40TA29 PO; -PANT40TA3 PO; +PLAV1TAB2 PO; +POTA99TA10 PO; +TRAM50TA2 PO; +XARE10TA PO
[2020-03-03 14:39] LABS: HEMOGLOBIN 11.3 g/dl (12.0-15.5); MEAN CORPUSCULAR HEMOGLOBIN 32.9 pg (27.0-33.0); MEAN CORPUSCULAR HGB CONC 33.2 g/dl (32.0-36.5); MEAN CORPUSCULAR VOLUME 99.1 fl (80.0-96.0); PLATELET COUNT, AUTOMATED 264 10^3/uL (150-450); RED BLOOD COUNT 3.43 10^6/uL (4.00-5.40); WHITE BLOOD COUNT 6.2 10^3/uL (4.0-10.0)
[2020-03-03 15:09] LABS: ALT/SGPT 27 U/L (12-78); BILIRUBIN,TOTAL 0.4 MG/DL (0.2-1.0); BLOOD UREA NITROGEN 9 MG/DL (7-18); CALCIUM LEVEL 8.7 MG/DL (8.8-10.2); CARBON DIOXIDE LEVEL 27 MEQ/L (21-32); CHLORIDE LEVEL 93 MEQ/L (98-107); CREATININE FOR GFR 0.95 MG/DL (0.55-1.30); GLOMERULAR FILTRATION RATE > 60.0 (>39); GLUCOSE, FASTING 86 MG/DL (70-100); POTASSIUM SERUM 4.2 MEQ/L (3.5-5.1); SODIUM LEVEL 128 MEQ/L (136-145); TOTAL PROTEIN 7.1 GM/DL (6.4-8.2)
== END ==
LOC: M LAB 13:51
PROVIDERS: ATTEND Internal Medicine Hematology
DX: Z85.038 Personal history of other malignant neoplasm of large intestine (principal)

== ENCOUNTER 2020-04-15 16:13 | Inpatient (IN) | payer OTHER, MEDICARE, MEDICAID ==
[~2020-04-15] VITALS: Ht 162.6 cm; Wt 71.1 kg
[~2020-04-15 16:13] MED LIST changes: -CEFD1CAP8 PO; -D-40TAB2 PO; -DOCU100C16 PO; -FERR325T3 PO; -FIBE625T PO; -KLOR10TA76 PO; -PLAV1TAB2 PO; -POTA99TA10 PO; -TRAM50TA2 PO; -XARE10TA PO
[2020-04-15] MEDS ORDERED: NS 1,000 ML IV ONE (16:45)
[2020-04-15] MEDS ORDERED: LIDOCAINE 2% 5ML JELLY UROJET TOP ONE (16:45)
[2020-04-15] MEDS ORDERED: ONDANSETRON 4MG/2ML VIAL IV ONE (16:45)
[2020-04-15] MEDS: MORPHINE 4 MG/ML 1ML VIAL/SYRINGE (J2270) IV PRN ×2 (16:49→17:43)
[2020-04-15 18:00] LABS: BASO % 0.3 % (0.0-1.0); EOS # 0.1 10^3/uL (0.0-0.5); EOS % 1.6 % (0.0-3.0); HEMOGLOBIN 11.8 g/dl (12.0-15.5); LYMPH # 1.5 10^3/uL (1.5-5.0); LYMPH % 23.4 % (24.0-44.0); MEAN CORPUSCULAR HEMOGLOBIN 33.3 pg (27.0-33.0); MEAN CORPUSCULAR HGB CONC 33.7 g/dl (32.0-36.5); MEAN CORPUSCULAR VOLUME 98.9 fl (80.0-96.0); MONO # 0.6 10^3/uL (0.0-0.8); MONO % 8.9 % (0.0-5.0); PLATELET COUNT, AUTOMATED 260 10^3/uL (150-450); RED BLOOD COUNT 3.54 10^6/uL (4.00-5.40); WHITE BLOOD COUNT 6.2 10^3/uL (4.0-10.0)
[2020-04-15 18:07] LABS: ALBUMIN 4.1 GM/DL (3.2-5.2); ALT/SGPT 30 U/L (12-78); AMYLASE 90 U/L (25-115); BILIRUBIN,DIRECT < 0.1 MG/DL (0.0-0.2); BILIRUBIN,TOTAL 0.2 MG/DL (0.2-1.0); BLOOD UREA NITROGEN 11 MG/DL (7-18); CALCIUM LEVEL 9.3 MG/DL (8.8-10.2); CARBON DIOXIDE LEVEL 30 MEQ/L (21-32); CHLORIDE LEVEL 97 MEQ/L (98-107); CK-MB VALUE MASS 2.8 NG/ML (<3.6); CPK CREATINE PHOSPHOKINASE 180 U/L (26-192); CREATININE FOR GFR 1.04 MG/DL (0.55-1.30); ETHYL ALCOHOL (ETHANOL) < 0.003 % (0.000-0.010); GLUCOSE, FASTING 91 MG/DL (70-100); LIPASE 168 U/L (73-393); MB/CK RELATIVE INDEX 1.56 (< OR =4); POTASSIUM SERUM 4.4 MEQ/L (3.5-5.1); SODIUM LEVEL 131 MEQ/L (136-145); TOTAL PROTEIN 7.4 GM/DL (6.4-8.2); TROPONIN I < 0.02 NG/ML (< 0.10)
[2020-04-15 18:10] LABS: INR 0.9; PROTHROMBIN TIME 12.3 SECONDS (11.8-14.0)
[2020-04-15 18:11] LABS: PARTIAL THROMBOPLASTIN TIME 28.8 SECONDS (25.0-38.4)
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
[2020-04-15 19:03] LABS: AMPHETAMINES LEVEL URINE NEGATIVE (NEGATIVE); BARBITURATES URINE NEGATIVE (NEGATIVE); BENZODIAZEPINES URINE NEGATIVE (NEGATIVE); CANNABINOIDS URINE NEGATIVE (NEGATIVE); COCAINE METABOLITE URINE NEGATIVE (NEGATIVE); METHADONE URINE NEGATIVE (NEGATIVE); OPIATES URINE POSITIVE (NEGATIVE); PHENCYCLIDINE URINE NEGATIVE (NEGATIVE)
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
[2020-04-15] MEDS ORDERED: MORPHINE 4 MG/ML 1ML VIAL/SYRINGE (J2270) IV ONE (20:00)
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
[2020-04-15] MEDS ORDERED: FIBE625T PO (22:09)
[2020-04-15] MEDS ORDERED: D-40TAB2 PO (22:09)
[2020-04-15] MEDS ORDERED: VENTAER INH (22:09)
[2020-04-15] MEDS ORDERED: BACL10TA2 PO (22:09)
[2020-04-15] MEDS ORDERED: FERR325T3 PO (22:09)
[2020-04-15] MEDS ORDERED: POTA99TA10 PO (22:09)
[2020-04-15] MEDS ORDERED: TORS5TAB2 PO (22:09)
[2020-04-15] MEDS ORDERED: ALBUTEROL 90 MCG/ACT 8GM HFA INHALER INH PRN (22:30)
[2020-04-15] MEDS ORDERED: ONDANSETRON 4MG/2ML VIAL IV PRN (22:30)
[2020-04-15] MEDS ORDERED: PERCOCET 5MG/325MG TAB PO PRN (22:30)
[2020-04-16 00:23] LABS: NT-PRO BNP 125 PG/ML (<450)
[2020-04-16] MEDS ORDERED: NITROGLYCERIN 0.4 MG SUBL TABLET SL PRN (01:00)
[2020-04-16] MEDS: NS 1,000 ML IV SCH ×4 (02:11→22:18)
[2020-04-16] MEDS: LABETALOL 100 MG TAB PO SCH ×3 (02:12→21:22)
[2020-04-16] MEDS: ATORVASTATIN 20 MG TAB PO SCH ×2 (02:12→18:35)
[2020-04-16] MEDS: LEVOTHYROXINE 25MCG TABLET (0.025MG) PO SCH ×2 (02:13→21:22)
[2020-04-16] MEDS: BACLOFEN 10 MG TAB PO SCH ×3 (02:13→21:21)
[2020-04-16] MEDS: levETIRAcetam 250MG TABLET (KEPPRA) PO SCH ×3 (02:13→21:21)
[2020-04-16] MEDS: DOCUSATE SODIUM 100 MG CAP PO SCH ×3 (02:13→21:21)
[2020-04-16] MEDS: OXcarbazepine 150 MG TAB PO SCH ×2 (02:14→18:36)
[2020-04-16] MEDS: MORPHINE 2 MG/ML 1ML VIAL (J2270) IV PRN ×4 (02:17→18:42)
[2020-04-16 04:22] VITALS: BP 176/87
[2020-04-16] MEDS ORDERED: MORPHINE 4 MG/ML 1ML VIAL/SYRINGE (J2270) IV ONE (05:15)
[2020-04-16] MEDS ORDERED: ceFAZolin SOD 2 GM in IV 1 EA IV SCH (06:00)
[2020-04-16] MEDS: PANTOPRAZOLE 40MG VIAL (C9113 PER 1) IV SCH (08:28)
[2020-04-16] MEDS: ASCORBIC ACID 500 MG TAB PO SCH (08:30)
[2020-04-16] MEDS: TORSEMIDE 5MG TABLET PO SCH (08:30)
[2020-04-16] MEDS ORDERED: lisinopriL 10 MG TAB PO SCH (09:00)
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
[2020-04-16 14:00] VITALS: BP 161/80
[2020-04-16 15:25] LABS: HEMATOCRIT 31.7 % (36.0-47.0); HEMOGLOBIN 10.5 g/dl (12.0-15.5); MEAN CORPUSCULAR HEMOGLOBIN 33.5 pg (27.0-33.0); MEAN CORPUSCULAR HGB CONC 33.1 g/dl (32.0-36.5); MEAN CORPUSCULAR VOLUME 101.3 fl (80.0-96.0); PLATELET COUNT, AUTOMATED 163 10^3/uL (150-450); RED BLOOD COUNT 3.13 10^6/uL (4.00-5.40); WHITE BLOOD COUNT 8.5 10^3/uL (4.0-10.0)
[2020-04-16 15:43] LABS: BLOOD UREA NITROGEN 6 MG/DL (7-18); CALCIUM LEVEL 8.3 MG/DL (8.8-10.2); CARBON DIOXIDE LEVEL 27 MEQ/L (21-32); CHLORIDE LEVEL 103 MEQ/L (98-107); CREATININE FOR GFR 0.78 MG/DL (0.55-1.30); GLOMERULAR FILTRATION RATE > 60.0 (>39); GLUCOSE, FASTING 100 MG/DL (70-100); POTASSIUM SERUM 3.5 MEQ/L (3.5-5.1); SODIUM LEVEL 138 MEQ/L (136-145)
[2020-04-16 16:30] VITALS: BP 180/80
[2020-04-16 20:00] VITALS: BP 171/80
[2020-04-16] MEDS: PERCOCET 5MG/325MG TAB PO PRN (21:21)
[2020-04-17] VITALS (9 sets, daily range): BP systolic 147–185; BP diastolic 72–90
[2020-04-17] MEDS: PERCOCET 5MG/325MG TAB PO PRN ×2 (04:52→20:07)
[2020-04-17] MEDS ORDERED: ceFAZolin SOD 2 GM in IV 1 EA IV SCH (06:00)
[2020-04-17] MEDS: NS 1,000 ML IV SCH ×2 (06:18→06:51)
[2020-04-17] MEDS: LABETALOL 100 MG TAB PO SCH ×2 (08:59→22:19)
[2020-04-17] MEDS: levETIRAcetam 250MG TABLET (KEPPRA) PO SCH ×2 (09:00→22:19)
[2020-04-17] MEDS: ASCORBIC ACID 500 MG TAB PO SCH (09:00)
[2020-04-17] MEDS: DOCUSATE SODIUM 100 MG CAP PO SCH ×2 (09:00→22:19)
[2020-04-17] MEDS: TORSEMIDE 5MG TABLET PO SCH (09:00)
[2020-04-17] MEDS: PANTOPRAZOLE 40MG VIAL (C9113 PER 1) IV SCH (09:00)
[2020-04-17] MEDS: BACLOFEN 10 MG TAB PO SCH ×2 (09:00→22:19)
[2020-04-17 09:25] LABS: HEMATOCRIT 30.8 % (36.0-47.0); HEMOGLOBIN 10.1 g/dl (12.0-15.5); MEAN CORPUSCULAR HEMOGLOBIN 33.1 pg (27.0-33.0); MEAN CORPUSCULAR HGB CONC 32.8 g/dl (32.0-36.5); PLATELET COUNT, AUTOMATED 141 10^3/uL (150-450); RED BLOOD COUNT 3.05 10^6/uL (4.00-5.40); WHITE BLOOD COUNT 9.6 10^3/uL (4.0-10.0)
[2020-04-17 09:55] LABS: ALBUMIN 2.9 GM/DL (3.2-5.2); ALT/SGPT 19 U/L (12-78); BILIRUBIN,TOTAL 0.5 MG/DL (0.2-1.0); BLOOD UREA NITROGEN 5 MG/DL (7-18); CALCIUM LEVEL 8.6 MG/DL (8.8-10.2); CARBON DIOXIDE LEVEL 28 MEQ/L (21-32); CHLORIDE LEVEL 103 MEQ/L (98-107); CREATININE FOR GFR 0.64 MG/DL (0.55-1.30); GLOMERULAR FILTRATION RATE > 60.0 (>39); GLUCOSE, FASTING 92 MG/DL (70-100); POTASSIUM SERUM 3.6 MEQ/L (3.5-5.1); SODIUM LEVEL 137 MEQ/L (136-145); TOTAL PROTEIN 5.5 GM/DL (6.4-8.2)
[2020-04-17] MEDS ORDERED: ceFAZolin 1GM VIAL (J0690 PER 500MG) As Ordered ONE (10:24)
[2020-04-17] MEDS ORDERED: TRANEXAMIC ACID 100 MG/ML 10ML VIAL As Ordered ONE (10:24)
[2020-04-17] MEDS: MORPHINE 2 MG/ML 1ML VIAL (J2270) IV PRN ×2 (10:29→10:38)
[2020-04-17] MEDS ORDERED: ceFAZolin 2 GM/D5W 50 ML IV BAG (J0690 PER 500MG) As Ordered ONE (10:44)
[2020-04-17] MEDS ORDERED: MORPHINE 2 MG/ML 1ML VIAL (J2270) IV ONE (10:45)
[2020-04-17] MEDS ORDERED: propofoL 200 MG/20 ML VIAL As Ordered ONE (10:59)
[2020-04-17] MEDS ORDERED: LIDOCAINE 2% 100MG/5ML SDV (FOR ANES.) As Ordered ONE (10:59)
[2020-04-17] MEDS ORDERED: ROCURONIUM BROMIDE 50 MG/5 ML VIAL As Ordered ONE (10:59)
[2020-04-17] MEDS ORDERED: fentaNYL 100 MCG/2 ML INJECTION (J3010) As Ordered ONE ×2 (11:00→13:54)
[2020-04-17] MEDS ORDERED: MIDAZOLAM INJ 2MG/2ML VIAL (J2250 PER 1MG) As Ordered ONE (11:22)
[2020-04-17] MEDS ORDERED: ETOMIDATE INJ 20MG/10ML VIAL As Ordered ONE (11:43)
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
[2020-04-17] MEDS ORDERED: PHENYLephrine HCL 500 MCG/5 ML (100MCG/ML) SYRINGE (J2370) As Ordered ONE (12:13)
[2020-04-17] MEDS ORDERED: KETAMINE HCL 200 MG/20 ML VIAL As Ordered ONE ×2 (12:24→14:32)
[2020-04-17] MEDS ORDERED: ePHEDrine SULFATE 25 MG/5 ML(5MG/ML) SYRINGE As Ordered ONE (12:28)
[2020-04-17] MEDS ORDERED: SUGAMMADEX SODIUM 500 MG/5 ML VIAL (BRIDION) As Ordered ONE (12:58)
[2020-04-17] MEDS ORDERED: BUPIVACAINE HCL 0.25% 30ML VIAL As Ordered ONE (13:01)
[2020-04-17] MEDS ORDERED: PERCOCET 5MG/325MG TAB As Ordered ONE ×2 (13:54→14:49)
[2020-04-17] MEDS: fentaNYL 100 MCG/2 ML INJECTION (J3010) IV PRN ×3 (13:54→14:17)
[2020-04-17] MEDS ORDERED: LR 1,000 ML IV SCH ×2 (14:00→16:00)
[2020-04-17] MEDS ORDERED: PERCOCET 5MG/325MG TAB PO PRN ×2 (14:00→16:00)
[2020-04-17] MEDS: LR 1,000 ML IV SCH (14:00)
[2020-04-17] MEDS ORDERED: ONDANSETRON 4MG/2ML VIAL IV PRN ×3 (14:00→16:00)
[2020-04-17] MEDS ORDERED: ACETAMINOPHEN TAB 650MG DOSE (2X325MG) PO PRN (14:00)
[2020-04-17] MEDS ORDERED: MORPHINE 2 MG/ML 1ML VIAL (J2270) IV PRN (14:00)
[2020-04-17] MEDS ORDERED: fentaNYL 100 MCG/2 ML INJECTION (J3010) IV PRN (16:00)
[2020-04-17] MEDS: ATORVASTATIN 20 MG TAB PO SCH (18:18)
[2020-04-17] MEDS: OXcarbazepine 300 MG TAB PO SCH (18:19)
[2020-04-17] MEDS: LEVOTHYROXINE 25MCG TABLET (0.025MG) PO SCH (22:18)
[2020-04-18] VITALS (11 sets, daily range): BP systolic 127–187; BP diastolic 58–84
[2020-04-18] MEDS: LR 1,000 ML IV SCH (01:49)
[2020-04-18] MEDS: PERCOCET 5MG/325MG TAB PO PRN ×2 (04:59→09:15)
[2020-04-18] MEDS: SALIVA SUBSTITUTE(MOUTHKOTE) BTL MT PRN ×2 (05:38→20:47)
[2020-04-18 06:52] LABS: HEMATOCRIT 22.4 % (36.0-47.0); HEMOGLOBIN 7.5 g/dl (12.0-15.5); MEAN CORPUSCULAR HEMOGLOBIN 33.5 pg (27.0-33.0); MEAN CORPUSCULAR HGB CONC 33.5 g/dl (32.0-36.5); PLATELET COUNT, AUTOMATED 112 10^3/uL (150-450); RED BLOOD COUNT 2.24 10^6/uL (4.00-5.40); WHITE BLOOD COUNT 7.4 10^3/uL (4.0-10.0)
[2020-04-18 07:07] LABS: ALBUMIN 2.3 GM/DL (3.2-5.2); ALT/SGPT 15 U/L (12-78); BILIRUBIN,TOTAL 0.6 MG/DL (0.2-1.0); BLOOD UREA NITROGEN 6 MG/DL (7-18); CALCIUM LEVEL 8.1 MG/DL (8.8-10.2); CARBON DIOXIDE LEVEL 27 MEQ/L (21-32); CHLORIDE LEVEL 102 MEQ/L (98-107); CREATININE FOR GFR 0.83 MG/DL (0.55-1.30); GLOMERULAR FILTRATION RATE > 60.0 (>39); GLUCOSE, FASTING 100 MG/DL (70-100); POTASSIUM SERUM 3.2 MEQ/L (3.5-5.1); SODIUM LEVEL 137 MEQ/L (136-145); TOTAL PROTEIN 5.2 GM/DL (6.4-8.2)
[2020-04-18] MEDS: levETIRAcetam 250MG TABLET (KEPPRA) PO SCH ×2 (09:55→20:41)
[2020-04-18] MEDS: ASCORBIC ACID 500 MG TAB PO SCH (09:55)
[2020-04-18] MEDS: TORSEMIDE 5MG TABLET PO SCH (09:56)
[2020-04-18] MEDS: BACLOFEN 10 MG TAB PO SCH ×2 (09:56→20:47)
[2020-04-18] MEDS: DOCUSATE SODIUM 100 MG CAP PO SCH ×2 (09:56→20:47)
[2020-04-18] MEDS: LABETALOL 100 MG TAB PO SCH ×2 (09:57→20:47)
[2020-04-18] MEDS: MIRALAX *UNIT DOSE* 17GM PACKET PO SCH (09:58)
[2020-04-18] MEDS: PANTOPRAZOLE 40MG VIAL (C9113 PER 1) IV SCH (09:58)
[2020-04-18] MEDS: MOM 30ML SUSPENSION UDC PO SCH (09:58)
[2020-04-18] MEDS ORDERED: POTASSIUM CHLORIDE 10 MEQ SR TABLET PO ONE (11:00)
[2020-04-18 12:16] LABS: BASO % 0.3 % (0.0-1.0); EOS # 0.2 10^3/uL (0.0-0.5); EOS % 2.1 % (0.0-3.0); HEMATOCRIT 23.2 % (36.0-47.0); HEMOGLOBIN 7.8 g/dl (12.0-15.5); LYMPH # 0.9 10^3/uL (1.5-5.0); LYMPH % 11.7 % (24.0-44.0); MEAN CORPUSCULAR HEMOGLOBIN 33.6 pg (27.0-33.0); MEAN CORPUSCULAR HGB CONC 33.6 g/dl (32.0-36.5); MONO # 0.7 10^3/uL (0.0-0.8); MONO % 8.9 % (0.0-5.0); NEUTROPHILS # 6.1 10^3/uL (1.5-8.5); NEUTROPHILS % 76.6 % (36.0-66.0); PLATELET COUNT, AUTOMATED 121 10^3/uL (150-450); RED BLOOD COUNT 2.32 10^6/uL (4.00-5.40)
[2020-04-18] MEDS ORDERED: PERCOCET 5MG/325MG TAB PO PRN (13:15)
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
[2020-04-18] MEDS: RIVAROXABAN 10 MG TAB (XARELTO) PO SCH (18:36)
[2020-04-18] MEDS: ATORVASTATIN 20 MG TAB PO SCH (18:36)
[2020-04-18] MEDS: OXcarbazepine 300 MG TAB PO SCH (18:36)
[2020-04-18] MEDS: LEVOTHYROXINE 25MCG TABLET (0.025MG) PO SCH (20:41)
[2020-04-18] MEDS: POTASSIUM CHLORIDE 10 MEQ SR TABLET PO SCH (20:42)
[2020-04-19] VITALS (16 sets, daily range): BP systolic 130–204; BP diastolic 60–110
[2020-04-19] MEDS: PERCOCET 5MG/325MG TAB PO PRN ×2 (01:31→05:49)
[2020-04-19] MEDS: SALIVA SUBSTITUTE(MOUTHKOTE) BTL MT PRN (05:49)
[2020-04-19] MEDS: ACETAMINOPHEN 500 MG TAB PO SCH ×3 (06:00→21:32)
[2020-04-19 06:40] LABS: HEMATOCRIT 25.6 % (36.0-47.0); HEMOGLOBIN 8.6 g/dl (12.0-15.5); MEAN CORPUSCULAR HEMOGLOBIN 32.3 pg (27.0-33.0); MEAN CORPUSCULAR HGB CONC 33.6 g/dl (32.0-36.5); MEAN CORPUSCULAR VOLUME 96.2 fl (80.0-96.0); PLATELET COUNT, AUTOMATED 116 10^3/uL (150-450); RED BLOOD COUNT 2.66 10^6/uL (4.00-5.40); WHITE BLOOD COUNT 6.8 10^3/uL (4.0-10.0)
[2020-04-19 07:08] LABS: ALBUMIN 2.5 GM/DL (3.2-5.2); ALT/SGPT 14 U/L (12-78); BILIRUBIN,TOTAL 0.6 MG/DL (0.2-1.0); BLOOD UREA NITROGEN 5 MG/DL (7-18); CALCIUM LEVEL 8.5 MG/DL (8.8-10.2); CARBON DIOXIDE LEVEL 31 MEQ/L (21-32); CHLORIDE LEVEL 103 MEQ/L (98-107); CREATININE FOR GFR 0.67 MG/DL (0.55-1.30); GLOMERULAR FILTRATION RATE > 60.0 (>39); GLUCOSE, FASTING 117 MG/DL (70-100); POTASSIUM SERUM 3.5 MEQ/L (3.5-5.1); SODIUM LEVEL 138 MEQ/L (136-145); TOTAL PROTEIN 5.6 GM/DL (6.4-8.2)
[2020-04-19] MEDS: LABETALOL 100 MG TAB PO SCH ×2 (09:00→21:38)
[2020-04-19] MEDS: PANTOPRAZOLE 40MG VIAL (C9113 PER 1) IV SCH (10:11)
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
[2020-04-19] MEDS: DOCUSATE SODIUM 100 MG CAP PO SCH ×2 (10:35→21:32)
[2020-04-19] MEDS: levETIRAcetam 250MG TABLET (KEPPRA) PO SCH ×2 (10:35→21:32)
[2020-04-19] MEDS: BACLOFEN 10 MG TAB PO SCH ×2 (10:35→21:32)
[2020-04-19] MEDS: MIRALAX *UNIT DOSE* 17GM PACKET PO SCH (10:36)
[2020-04-19] MEDS: MOM 30ML SUSPENSION UDC PO SCH (10:36)
[2020-04-19] MEDS: POTASSIUM CHLORIDE 10 MEQ SR TABLET PO SCH ×2 (10:36→21:32)
[2020-04-19] MEDS: ASCORBIC ACID 500 MG TAB PO SCH (10:36)
[2020-04-19] MEDS: traMADol 50 MG TAB PO PRN ×3 (11:03→21:32)
[2020-04-19] MEDS: RIVAROXABAN 10 MG TAB (XARELTO) PO SCH (18:02)
[2020-04-19] MEDS: ATORVASTATIN 20 MG TAB PO SCH (18:02)
[2020-04-19] MEDS: OXcarbazepine 300 MG TAB PO SCH (18:03)
[2020-04-19 18:11] LABS: HEMATOCRIT 34.1 % (36.0-47.0); MEAN CORPUSCULAR HEMOGLOBIN 31.8 pg (27.0-33.0); MEAN CORPUSCULAR VOLUME 93.4 fl (80.0-96.0); PLATELET COUNT, AUTOMATED 129 10^3/uL (150-450); RED BLOOD COUNT 3.65 10^6/uL (4.00-5.40); WHITE BLOOD COUNT 7.6 10^3/uL (4.0-10.0)
[2020-04-19 18:15] LABS: HEMOGLOBIN 11.6 g/dl (12.0-15.5)
[2020-04-19] MEDS ORDERED: TORSEMIDE 5MG TABLET PO ONE (19:00)
[2020-04-19] MEDS: LEVOTHYROXINE 25MCG TABLET (0.025MG) PO SCH (21:31)
[2020-04-20] MEDS: traMADol 50 MG TAB PO PRN ×2 (02:19→18:22)
[2020-04-20 05:14] VITALS: BP 155/85
[2020-04-20] MEDS: ACETAMINOPHEN 500 MG TAB PO SCH ×4 (05:16→21:44)
[2020-04-20 07:20] LABS: HEMATOCRIT 33.7 % (36.0-47.0); HEMOGLOBIN 11.7 g/dl (12.0-15.5); MEAN CORPUSCULAR HGB CONC 34.7 g/dl (32.0-36.5); MEAN CORPUSCULAR VOLUME 92.1 fl (80.0-96.0); PLATELET COUNT, AUTOMATED 144 10^3/uL (150-450); RED BLOOD COUNT 3.66 10^6/uL (4.00-5.40)
[2020-04-20 07:54] LABS: ALBUMIN 2.5 GM/DL (3.2-5.2); ALT/SGPT 16 U/L (12-78); BILIRUBIN,TOTAL 0.9 MG/DL (0.2-1.0); BLOOD UREA NITROGEN 7 MG/DL (7-18); CALCIUM LEVEL 8.4 MG/DL (8.8-10.2); CARBON DIOXIDE LEVEL 31 MEQ/L (21-32); CHLORIDE LEVEL 99 MEQ/L (98-107); CREATININE FOR GFR 0.58 MG/DL (0.55-1.30); GLOMERULAR FILTRATION RATE > 60.0 (>39); GLUCOSE, FASTING 108 MG/DL (70-100); POTASSIUM SERUM 3.6 MEQ/L (3.5-5.1); SODIUM LEVEL 135 MEQ/L (136-145); TOTAL PROTEIN 6.1 GM/DL (6.4-8.2)
[2020-04-20 08:00] VITALS: BP 187/84
--- NOTE | 2020-04-20 08:36 | REPVR ---
PROCEDURE INFORMATION: Exam: CT Head Without Contrast Exam date and time: 04/20/2020 8:12 AM Age: 74 years old Clinical indication: Pain; Headache TECHNIQUE: Imaging protocol: Computed tomography of the head without contrast. Radiation optimization: All CT scans at this facility use at least one of these dose optimization techniques: automated exposure control; mA and/or kV adjustment per patient size (includes targeted exams where dose is matched to clinical indication); or iterative reconstruction. COMPARISON: CT Head without contrast 04/15/2020 5:29 PM FINDINGS: Limitations: Examination is limited by motion artifact. Brain: Diffuse cerebral atrophy consistent with patient's age. No acute mass effect. No acute intracranial hemorrhage. Chronic lacunar infarct in the right caudate nucleus. Cortical han-white matter differentiation is preserved. Ventricles: Normal. No ventriculomegaly. Bones/joints: Unremarkable. No acute fracture. Sinuses: Visualized sinuses are unremarkable. No fluid levels. Mastoid air cells: Visualized mastoid air cells are well aerated. Vasculature: Atherosclerotic calcification of the carotid siphon. Soft tissues: Unremarkable. Dental: Patient is edentulous. IMPRESSION: 1. No acute cerebral findings. 2. Chronic lacunar infarct in the right caudate nucleus. Electronically signed by: Chichi Soria On 04/20/2020 08:36:23 AM
[2020-04-20 09:21] VITALS: BP_SYST 122; BP_SYST 132; BP_SYST 134; BP_DIAS 64; BP_DIAS 72; BP_DIAS 74
[2020-04-20] MEDS ORDERED: XARE10TA PO (09:47)
[2020-04-20] MEDS ORDERED: TRAM50TA2 PO (09:47)
[2020-04-20] MEDS ORDERED: DOCU100C16 PO (09:47)
[2020-04-20] MEDS ORDERED: KLOR10TA76 PO (09:47)
[2020-04-20] MEDS: POTASSIUM CHLORIDE 10 MEQ SR TABLET PO SCH ×2 (09:57→21:43)
[2020-04-20] MEDS: ASCORBIC ACID 500 MG TAB PO SCH (09:57)
[2020-04-20] MEDS: DOCUSATE SODIUM 100 MG CAP PO SCH ×2 (09:57→21:00)
[2020-04-20] MEDS: BACLOFEN 10 MG TAB PO SCH ×2 (09:57→21:43)
[2020-04-20] MEDS: levETIRAcetam 250MG TABLET (KEPPRA) PO SCH ×2 (09:58→21:43)
[2020-04-20] MEDS: MOM 30ML SUSPENSION UDC PO SCH (09:58)
[2020-04-20] MEDS: LABETALOL 100 MG TAB PO SCH ×2 (09:58→21:44)
[2020-04-20] MEDS: PANTOPRAZOLE 40MG VIAL (C9113 PER 1) IV SCH (09:59)
[2020-04-20] MEDS: MIRALAX *UNIT DOSE* 17GM PACKET PO SCH (09:59)
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
[2020-04-20 14:00] VITALS: BP 172/92
[2020-04-20] MEDS: RIVAROXABAN 10 MG TAB (XARELTO) PO SCH (18:22)
[2020-04-20] MEDS: OXcarbazepine 300 MG TAB PO SCH (18:22)
[2020-04-20] MEDS: ATORVASTATIN 20 MG TAB PO SCH (18:22)
[2020-04-20] MEDS: LEVOTHYROXINE 25MCG TABLET (0.025MG) PO SCH (21:44)
[2020-04-20 22:00] VITALS: BP 150/102
[2020-04-21] MEDS: traMADol 50 MG TAB PO PRN ×2 (03:19→09:10)
[2020-04-21 06:00] VITALS: BP 160/90
[2020-04-21] MEDS: ACETAMINOPHEN 500 MG TAB PO SCH ×3 (06:10→21:24)
[2020-04-21 07:23] LABS: HEMOGLOBIN 12.5 g/dl (12.0-15.5); MEAN CORPUSCULAR HEMOGLOBIN 32.1 pg (27.0-33.0); MEAN CORPUSCULAR HGB CONC 33.8 g/dl (32.0-36.5); MEAN CORPUSCULAR VOLUME 95.1 fl (80.0-96.0); PLATELET COUNT, AUTOMATED 202 10^3/uL (150-450); RED BLOOD COUNT 3.89 10^6/uL (4.00-5.40); WHITE BLOOD COUNT 7.2 10^3/uL (4.0-10.0)
[2020-04-21 07:47] LABS: ALBUMIN 2.6 GM/DL (3.2-5.2); ALT/SGPT 16 U/L (12-78); BILIRUBIN,TOTAL 0.8 MG/DL (0.2-1.0); BLOOD UREA NITROGEN 12 MG/DL (7-18); CALCIUM LEVEL 8.8 MG/DL (8.8-10.2); CARBON DIOXIDE LEVEL 31 MEQ/L (21-32); CHLORIDE LEVEL 99 MEQ/L (98-107); CREATININE FOR GFR 0.84 MG/DL (0.55-1.30); GLOMERULAR FILTRATION RATE > 60.0 (>39); GLUCOSE, FASTING 108 MG/DL (70-100); POTASSIUM SERUM 4.2 MEQ/L (3.5-5.1); SODIUM LEVEL 138 MEQ/L (136-145); TOTAL PROTEIN 5.5 GM/DL (6.4-8.2)
[2020-04-21] MEDS: DOCUSATE SODIUM 100 MG CAP PO SCH ×3 (09:00→21:23)
[2020-04-21] MEDS: MOM 30ML SUSPENSION UDC PO SCH (09:00)
[2020-04-21] MEDS: MIRALAX *UNIT DOSE* 17GM PACKET PO SCH (09:00)
[2020-04-21] MEDS: PANTOPRAZOLE 40MG VIAL (C9113 PER 1) IV SCH (09:09)
[2020-04-21] MEDS: BACLOFEN 10 MG TAB PO SCH ×3 (09:10→21:35)
[2020-04-21] MEDS: levETIRAcetam 250MG TABLET (KEPPRA) PO SCH ×3 (09:10→21:34)
[2020-04-21] MEDS: POTASSIUM CHLORIDE 10 MEQ SR TABLET PO SCH ×2 (09:10→21:23)
[2020-04-21] MEDS: ASCORBIC ACID 500 MG TAB PO SCH (09:10)
[2020-04-21] MEDS: LABETALOL 100 MG TAB PO SCH ×2 (09:11→21:24)
[2020-04-21] MEDS ORDERED: MORPHINE 2 MG/ML 1ML VIAL (J2270) IV ONE (10:00)
[2020-04-21] MEDS ORDERED: ONDANSETRON 4 MG TAB PO PRN (12:45)
[2020-04-21 14:00] VITALS: BP 120/67
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
[2020-04-21] MEDS: RIVAROXABAN 10 MG TAB (XARELTO) PO SCH (18:41)
[2020-04-21] MEDS: OXcarbazepine 300 MG TAB PO SCH (18:41)
[2020-04-21] MEDS: ATORVASTATIN 20 MG TAB PO SCH (18:41)
[2020-04-21] MEDS: LEVOTHYROXINE 25MCG TABLET (0.025MG) PO SCH (21:23)
[2020-04-21 22:00] VITALS: BP 124/63
[2020-04-22] MEDS: ACETAMINOPHEN 500 MG TAB PO SCH ×3 (05:17→20:13)
[2020-04-22 06:00] VITALS: BP 155/82
[2020-04-22 06:46] LABS: HEMATOCRIT 40.4 % (36.0-47.0); HEMOGLOBIN 12.4 g/dl (12.0-15.5); MEAN CORPUSCULAR HEMOGLOBIN 32.1 pg (27.0-33.0); MEAN CORPUSCULAR HGB CONC 30.7 g/dl (32.0-36.5); MEAN CORPUSCULAR VOLUME 104.7 fl (80.0-96.0); PLATELET COUNT, AUTOMATED 222 10^3/uL (150-450); RED BLOOD COUNT 3.86 10^6/uL (4.00-5.40); WHITE BLOOD COUNT 6.2 10^3/uL (4.0-10.0)
[2020-04-22 07:12] LABS: ALBUMIN 2.2 GM/DL (3.2-5.2); BILIRUBIN,TOTAL 0.7 MG/DL (0.2-1.0); CREATININE FOR GFR 1.05 MG/DL (0.55-1.30); GLOMERULAR FILTRATION RATE 54.4 (>39); TOTAL PROTEIN 6.4 GM/DL (6.4-8.2)
[2020-04-22] MEDS: POTASSIUM CHLORIDE 10 MEQ SR TABLET PO SCH ×2 (09:00→20:10)
[2020-04-22] MEDS: MIRALAX *UNIT DOSE* 17GM PACKET PO SCH (09:00)
[2020-04-22] MEDS: ASCORBIC ACID 500 MG TAB PO SCH (09:36)
[2020-04-22] MEDS: PANTOPRAZOLE 40MG TAB (PROTONIX) PO SCH (09:36)
[2020-04-22] MEDS: levETIRAcetam 250MG TABLET (KEPPRA) PO SCH ×2 (09:37→20:00)
[2020-04-22] MEDS: LABETALOL 100 MG TAB PO SCH ×2 (09:37→20:11)
[2020-04-22] MEDS: BACLOFEN 10 MG TAB PO SCH ×2 (09:39→20:05)
[2020-04-22] MEDS: DOCUSATE SODIUM 100 MG CAP PO SCH ×2 (09:39→20:00)
[2020-04-22] MEDS: MOM 30ML SUSPENSION UDC PO SCH (09:40)
[2020-04-22] MEDS: RIVAROXABAN 10 MG TAB (XARELTO) PO SCH (18:13)
[2020-04-22] MEDS: OXcarbazepine 300 MG TAB PO SCH (18:13)
[2020-04-22] MEDS: ATORVASTATIN 20 MG TAB PO SCH (18:14)
--- NOTE | 2020-04-22 18:47 | REP ---
CHEST X-RAY: PORTABLE SINGLE AP VIEW HISTORY: Trauma. COMPARISON STUDY: 11/22/2019. FINDINGS: Monitoring electrodes are seen. There are surgical clips in the soft tissues of the neck bilaterally unchanged. The lungs are symmetrically aerated and clear. Cardiomediastinal silhouette is unremarkable and unchanged. The aorta is somewhat calcific. Pulmonary vasculature is not increased. No bony abnormality is appreciated. MTDD
--- NOTE | 2020-04-22 18:49 | REP ---
RIGHT FEMUR SERIES: FOUR VIEWS HISTORY: Trauma. FINDINGS: Four views of the right femur demonstrate severe osteoarthritis affecting the right hip joint. There is an intertrochanteric nondisplaced fracture of the proximal femur visible on AP and cross-table lateral views of the femur. There is also evidence of an acute fracture of the pubic bone to the right of midline. Comparison KUB study 12/06/2011. No distal femoral fracture is seen. IMPRESSION: Nondisplaced intertrochanteric fracture. Severe osteoarthritis right hip. Probable acute fracture to the right of midline in the pubic bone. MTDD
--- NOTE | 2020-04-22 18:50 | REP ---
RIGHT TIB-FIB SERIES: 4-VIEWS HISTORY: Trauma. FINDINGS: Four views of the right tibia and fibula demonstrate no evidence of fracture or subluxation. Diffuse osteopenia is noted. IMPRESSION: No fracture noted. MTDD
--- NOTE | 2020-04-22 18:53 | REP ---
RIGHT HIP CLINICAL: Orthopedic examination status post femoral juan placement. TECHNIQUE: Intraoperative fluoroscopic imaging using portable C-arm technique. FINDINGS: Multiple images demonstrate intramedullary juan through the right femur in satisfactory position. Total fluoroscopic time 1 minute 31 seconds. IMPRESSION: Status post left femoral juan placement for hip fracture. MTDD
[2020-04-22] MEDS: LEVOTHYROXINE 25MCG TABLET (0.025MG) PO SCH (20:05)
[2020-04-23] MEDS: ACETAMINOPHEN 500 MG TAB PO SCH ×3 (05:48→21:04)
[2020-04-23 06:00] VITALS: BP 182/99
[2020-04-23 09:00] VITALS: BP 172/64
[2020-04-23] MEDS: DOCUSATE SODIUM 100 MG CAP PO SCH ×2 (09:00→21:03)
[2020-04-23] MEDS: MIRALAX *UNIT DOSE* 17GM PACKET PO SCH (09:00)
[2020-04-23] MEDS: MOM 30ML SUSPENSION UDC PO SCH (09:00)
[2020-04-23] MEDS: POTASSIUM CHLORIDE 10 MEQ SR TABLET PO SCH ×2 (09:45→21:03)
[2020-04-23] MEDS: PANTOPRAZOLE 40MG TAB (PROTONIX) PO SCH (09:45)
[2020-04-23] MEDS: levETIRAcetam 250MG TABLET (KEPPRA) PO SCH ×2 (09:45→21:03)
[2020-04-23] MEDS: traMADol 50 MG TAB PO PRN (09:46)
[2020-04-23] MEDS: LABETALOL 100 MG TAB PO SCH ×2 (09:47→21:05)
[2020-04-23] MEDS: ASCORBIC ACID 500 MG TAB PO SCH (09:47)
[2020-04-23] MEDS: BACLOFEN 10 MG TAB PO SCH ×2 (09:48→21:03)
[2020-04-23 14:00] VITALS: BP 182/99
[2020-04-23] MEDS: OXcarbazepine 300 MG TAB PO SCH (17:57)
[2020-04-23] MEDS: RIVAROXABAN 10 MG TAB (XARELTO) PO SCH (17:57)
[2020-04-23] MEDS: ATORVASTATIN 20 MG TAB PO SCH (17:57)
[2020-04-23] MEDS: LEVOTHYROXINE 25MCG TABLET (0.025MG) PO SCH (21:03)
[2020-04-23 22:00] VITALS: BP 168/74
[2020-04-24] MEDS: traMADol 50 MG TAB PO PRN (01:08)
[2020-04-24] MEDS: ACETAMINOPHEN 500 MG TAB PO SCH ×3 (05:10→22:14)
[2020-04-24 06:00] VITALS: BP 169/94
[2020-04-24] MEDS: MOM 30ML SUSPENSION UDC PO SCH (09:00)
[2020-04-24] MEDS: MIRALAX *UNIT DOSE* 17GM PACKET PO SCH (09:00)
[2020-04-24] MEDS: DOCUSATE SODIUM 100 MG CAP PO SCH ×2 (09:00→19:39)
[2020-04-24] MEDS: levETIRAcetam 250MG TABLET (KEPPRA) PO SCH ×2 (10:12→22:14)
[2020-04-24] MEDS: ASCORBIC ACID 500 MG TAB PO SCH (10:12)
[2020-04-24] MEDS: POTASSIUM CHLORIDE 10 MEQ SR TABLET PO SCH ×2 (10:13→22:13)
[2020-04-24] MEDS: PANTOPRAZOLE 40MG TAB (PROTONIX) PO SCH (10:13)
[2020-04-24] MEDS: BACLOFEN 10 MG TAB PO SCH ×2 (10:14→22:15)
[2020-04-24] MEDS: LABETALOL 100 MG TAB PO SCH ×2 (10:14→22:14)
[2020-04-24] MEDS: lisinopriL 10 MG TAB PO SCH (10:24)
[2020-04-24] MEDS: RIVAROXABAN 10 MG TAB (XARELTO) PO SCH (18:27)
[2020-04-24] MEDS: ATORVASTATIN 20 MG TAB PO SCH (18:27)
[2020-04-24] MEDS: OXcarbazepine 300 MG TAB PO SCH (18:27)
[2020-04-24] MEDS: LEVOTHYROXINE 25MCG TABLET (0.025MG) PO SCH (22:13)
[2020-04-25 06:13] VITALS: BP 133/78
[2020-04-25] MEDS: ACETAMINOPHEN 500 MG TAB PO SCH ×3 (06:16→21:10)
[2020-04-25] MEDS: MIRALAX *UNIT DOSE* 17GM PACKET PO SCH (09:00)
[2020-04-25] MEDS: DOCUSATE SODIUM 100 MG CAP PO SCH ×2 (09:00→21:00)
[2020-04-25] MEDS: MOM 30ML SUSPENSION UDC PO SCH (09:00)
[2020-04-25] MEDS: lisinopriL 10 MG TAB PO SCH (09:59)
[2020-04-25] MEDS: PANTOPRAZOLE 40MG TAB (PROTONIX) PO SCH (09:59)
[2020-04-25] MEDS: LABETALOL 100 MG TAB PO SCH ×2 (09:59→21:09)
[2020-04-25] MEDS: BACLOFEN 10 MG TAB PO SCH ×2 (09:59→21:10)
[2020-04-25] MEDS: levETIRAcetam 250MG TABLET (KEPPRA) PO SCH ×2 (10:00→21:09)
[2020-04-25] MEDS: ASCORBIC ACID 500 MG TAB PO SCH (10:00)
[2020-04-25] MEDS: POTASSIUM CHLORIDE 10 MEQ SR TABLET PO SCH ×2 (10:00→21:10)
[2020-04-25] MEDS: ATORVASTATIN 20 MG TAB PO SCH (18:48)
[2020-04-25] MEDS: RIVAROXABAN 10 MG TAB (XARELTO) PO SCH (18:48)
[2020-04-25] MEDS: OXcarbazepine 300 MG TAB PO SCH (18:48)
[2020-04-25] MEDS: LEVOTHYROXINE 25MCG TABLET (0.025MG) PO SCH (21:10)
[2020-04-26] MEDS: ACETAMINOPHEN 500 MG TAB PO SCH ×3 (05:21→22:08)
[2020-04-26 06:00] VITALS: BP 158/68
[2020-04-26] MEDS: MIRALAX *UNIT DOSE* 17GM PACKET PO SCH (09:00)
[2020-04-26] MEDS: DOCUSATE SODIUM 100 MG CAP PO SCH ×2 (09:00→21:00)
[2020-04-26] MEDS: MOM 30ML SUSPENSION UDC PO SCH (09:00)
[2020-04-26] MEDS: levETIRAcetam 250MG TABLET (KEPPRA) PO SCH ×2 (10:17→22:07)
[2020-04-26] MEDS: ASCORBIC ACID 500 MG TAB PO SCH (10:17)
[2020-04-26] MEDS: BACLOFEN 10 MG TAB PO SCH ×2 (10:17→22:08)
[2020-04-26] MEDS: PANTOPRAZOLE 40MG TAB (PROTONIX) PO SCH (10:17)
[2020-04-26] MEDS: LABETALOL 100 MG TAB PO SCH ×2 (10:18→22:08)
[2020-04-26] MEDS: POTASSIUM CHLORIDE 10 MEQ SR TABLET PO SCH ×2 (10:18→22:06)
[2020-04-26] MEDS: lisinopriL 10 MG TAB PO SCH (10:19)
[2020-04-26] MEDS: ATORVASTATIN 20 MG TAB PO SCH (17:41)
[2020-04-26] MEDS: RIVAROXABAN 10 MG TAB (XARELTO) PO SCH (17:42)
[2020-04-26] MEDS: traMADol 50 MG TAB PO PRN ×2 (17:42→22:07)
[2020-04-26] MEDS: OXcarbazepine 300 MG TAB PO SCH (17:42)
[2020-04-26] MEDS: SALIVA SUBSTITUTE(MOUTHKOTE) BTL MT PRN (22:07)
[2020-04-26] MEDS: LEVOTHYROXINE 25MCG TABLET (0.025MG) PO SCH (22:08)
[2020-04-27] MEDS: traMADol 50 MG TAB PO PRN ×4 (04:03→19:33)
[2020-04-27] MEDS: ACETAMINOPHEN 500 MG TAB PO SCH ×3 (05:19→21:18)
[2020-04-27 06:00] VITALS: BP 152/74
[2020-04-27] MEDS: DOCUSATE SODIUM 100 MG CAP PO SCH ×2 (09:00→19:27)
[2020-04-27] MEDS: MIRALAX *UNIT DOSE* 17GM PACKET PO SCH (09:00)
[2020-04-27] MEDS: MOM 30ML SUSPENSION UDC PO SCH (09:00)
[2020-04-27] MEDS: BACLOFEN 10 MG TAB PO SCH ×2 (09:17→19:28)
[2020-04-27] MEDS: LABETALOL 100 MG TAB PO SCH ×2 (09:21→19:32)
[2020-04-27] MEDS: lisinopriL 10 MG TAB PO SCH (09:22)
[2020-04-27] MEDS: POTASSIUM CHLORIDE 10 MEQ SR TABLET PO SCH ×2 (09:22→19:28)
[2020-04-27] MEDS: PANTOPRAZOLE 40MG TAB (PROTONIX) PO SCH (09:22)
[2020-04-27] MEDS: ASCORBIC ACID 500 MG TAB PO SCH (09:22)
[2020-04-27] MEDS: levETIRAcetam 250MG TABLET (KEPPRA) PO SCH ×2 (09:22→19:28)
[2020-04-27] MEDS ORDERED: LOMOTIL 2.5MG/0.025MG TABLET PO PRN (14:15)
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
[2020-04-27] MEDS: ATORVASTATIN 20 MG TAB PO SCH (17:45)
[2020-04-27] MEDS: RIVAROXABAN 10 MG TAB (XARELTO) PO SCH (17:45)
[2020-04-27] MEDS: OXcarbazepine 300 MG TAB PO SCH (17:45)
[2020-04-27] MEDS: LEVOTHYROXINE 25MCG TABLET (0.025MG) PO SCH (19:29)
[2020-04-27 19:31] VITALS: BP 131/70
[2020-04-28] MEDS: ACETAMINOPHEN 500 MG TAB PO SCH ×3 (05:30→21:35)
[2020-04-28 06:00] VITALS: BP 134/70
[2020-04-28] MEDS: traMADol 50 MG TAB PO PRN ×4 (06:29→21:33)
[2020-04-28 08:00] LABS: HEMATOCRIT 35.1 % (36.0-47.0); HEMOGLOBIN 10.9 g/dl (12.0-15.5); MEAN CORPUSCULAR HEMOGLOBIN 31.1 pg (27.0-33.0); MEAN CORPUSCULAR HGB CONC 31.1 g/dl (32.0-36.5); MEAN CORPUSCULAR VOLUME 100.3 fl (80.0-96.0); PLATELET COUNT, AUTOMATED 555 10^3/uL (150-450); WHITE BLOOD COUNT 13.8 10^3/uL (4.0-10.0)
[2020-04-28 08:09] LABS: BLOOD UREA NITROGEN 22 MG/DL (7-18); CALCIUM LEVEL 8.7 MG/DL (8.8-10.2); CARBON DIOXIDE LEVEL 30 MEQ/L (21-32); CHLORIDE LEVEL 99 MEQ/L (98-107); CREATININE FOR GFR 0.72 MG/DL (0.55-1.30); GLOMERULAR FILTRATION RATE > 60.0 (>39); GLUCOSE, FASTING 87 MG/DL (70-100); MAGNESIUM LEVEL 1.6 MG/DL (1.8-2.4); POTASSIUM SERUM 5.1 MEQ/L (3.5-5.1); SODIUM LEVEL 133 MEQ/L (136-145)
[2020-04-28 08:57] LABS: EOSINOPHILS 2 % (0-3); LYMPHOCYTES 13 % (16-44); METAMYELOCYTES 6 % (0-0); MONOCYTES 8 % (0-5); MYELOCYTES 3 % (0-0); NEUTROPHILS 65 % (28-66); PLATELET ESTIMATE INCREASED (NORMAL)
[2020-04-28] MEDS ORDERED: MAG SULF 1GM/100ML (MAG RUN) 1 GM in IV 1 EA IV ONE (09:00)
[2020-04-28 09:20] VITALS: BP 138/69
--- NOTE | 2020-04-28 09:26 | REPVR ---
PROCEDURE INFORMATION: Exam: XR Chest, 1 View Exam date and time: 04/28/20 (8:49am) Age: 74 years old Clinical indication: Leukocytosis TECHNIQUE: Imaging protocol: XR of the chest Views: 1 view COMPARISON: Portable CXR of 04/15/20 FINDINGS: Comparison is made with a portable CXR done on 04/15/20. Faint band of density noted near the right lung base (probable atelectasis). No consolidation. No pleural effusions. Normal heart size. No gross cardiac failure. No pneumothorax. Surgical clips again noted over the lower neck (probably related to previous thyroid surgery). A few surgical clips in the LUQ area. IMPRESSION: Probable faint band of atelectasis near the right lung base. Cannot exclude a faint RLL pneumonitis here. Follow-up films are suggested, as symptoms warrant. Otherwise, the lung longoria are clear. No consolidation. No pleural effusions. See additional comments above. Electronically signed by: Luz Maria Oglesby On 04/28/2020 09:20:06 AM
[2020-04-28] MEDS: DOCUSATE SODIUM 100 MG CAP PO SCH (10:14)
[2020-04-28] MEDS: levETIRAcetam 250MG TABLET (KEPPRA) PO SCH ×2 (10:14→21:32)
[2020-04-28] MEDS: FIBER-CON 625 MG TAB PO SCH ×3 (10:14→21:41)
[2020-04-28] MEDS: BACLOFEN 10 MG TAB PO SCH ×2 (10:14→21:31)
[2020-04-28] MEDS: POTASSIUM CHLORIDE 10 MEQ SR TABLET PO SCH ×2 (10:14→21:32)
[2020-04-28] MEDS: MIRALAX *UNIT DOSE* 17GM PACKET PO SCH (10:15)
[2020-04-28] MEDS: LABETALOL 100 MG TAB PO SCH ×2 (10:15→21:32)
[2020-04-28] MEDS: ASCORBIC ACID 500 MG TAB PO SCH (10:15)
[2020-04-28] MEDS: lisinopriL 10 MG TAB PO SCH (10:15)
[2020-04-28] MEDS: PANTOPRAZOLE 40MG TAB (PROTONIX) PO SCH (10:15)
[2020-04-28] MEDS: MOM 30ML SUSPENSION UDC PO SCH (10:15)
[2020-04-28] MEDS ORDERED: MOM 30ML SUSPENSION UDC PO PRN (10:45)
[2020-04-28] MEDS ORDERED: MIRALAX *UNIT DOSE* 17GM PACKET PO PRN (10:45)
[2020-04-28] MEDS ORDERED: MAGNESIUM OXIDE 400 MG TAB (MAG-OX) PO ONE (10:45)
[2020-04-28] MEDS ORDERED: DOCUSATE SODIUM 100 MG CAP PO PRN (10:45)
--- NOTE | 2020-04-28 11:18 | REPVR ---
PROCEDURE INFORMATION: Exam: CT Chest without Contrast Exam date and time: 04/28/20 (10:38am) Age: 74 years old Clinical indication: Chest pain. RLL infiltrate, leukocytosis. TECHNIQUE: Imaging protocol: Computed tomography of the chest without contrast. 3D rendering (Not supervised by radiologist): MIP and/or 3D reconstructed images were created by the technologist. Radiation optimization: All CT scans at this facility use at least one of these dose optimization techniques: automated exposure control; mA and/or kV adjustment per patient size (includes targeted exams where dose is matched to clinical indication); or iterative reconstruction. COMPARISON: CT CHEST of 04/15/20 FINDINGS: Lungs: Band of hazy opacity below the right hilum. No dense consolidation. No masses. Pleural space: Unremarkable. No pneumothorax. No pleural effusions. Heart: Unremarkable. No cardiomegaly. No pericardial effusion. Aorta: Atherosclerotic aortic changes again seen. No aortic aneurysm. Lymph nodes: Unremarkable. No enlarged lymph nodes. Bones/joints: Unremarkable. No acute fracture. Soft tissues: Multiple surgical clips again seen in the visualized lower neck (probably related to previous thyroid surgery). Upper abdomen: Distended stomach, filled with fluid and food debris. Distended gallbladder, with no calcified stones identified. Surgical clips in the mid abdomen, in the midline. Left kidney not visualized. IMPRESSION: Band of hazy opacity below the right hilum -- perhaps atelectasis; perhaps fissural thickening. No consolidation. No pleural effusions. Previous thyroid surgery (presumably). See additional comments above regarding non-emergent and incidental findings. Electronically signed by: Luz Maria Oglesby On 04/28/2020 11:18:43 AM
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
[2020-04-28] MEDS: CEFDINIR 300 MG CAP (OMNICEF) PO SCH ×2 (15:05→21:32)
[2020-04-28] MEDS: RIVAROXABAN 10 MG TAB (XARELTO) PO SCH (17:11)
[2020-04-28] MEDS: ATORVASTATIN 20 MG TAB PO SCH (17:11)
[2020-04-28] MEDS: OXcarbazepine 300 MG TAB PO SCH (17:11)
[2020-04-28] MEDS: LEVOTHYROXINE 25MCG TABLET (0.025MG) PO SCH (21:31)
[2020-04-29] MEDS: ACETAMINOPHEN 500 MG TAB PO SCH ×3 (05:36→21:09)
[2020-04-29 06:00] VITALS: BP 157/73
[2020-04-29] MEDS: traMADol 50 MG TAB PO PRN ×3 (06:31→19:24)
[2020-04-29 08:01] LABS: HEMOGLOBIN 11.1 g/dl (12.0-15.5); MEAN CORPUSCULAR HEMOGLOBIN 31.8 pg (27.0-33.0); MEAN CORPUSCULAR HGB CONC 32.6 g/dl (32.0-36.5); MEAN CORPUSCULAR VOLUME 97.4 fl (80.0-96.0); PLATELET COUNT, AUTOMATED 522 10^3/uL (150-450); RED BLOOD COUNT 3.49 10^6/uL (4.00-5.40); WHITE BLOOD COUNT 13.2 10^3/uL (4.0-10.0)
[2020-04-29 08:32] LABS: BLOOD UREA NITROGEN 16 MG/DL (7-18); CALCIUM LEVEL 8.8 MG/DL (8.8-10.2); CARBON DIOXIDE LEVEL 27 MEQ/L (21-32); CHLORIDE LEVEL 95 MEQ/L (98-107); CREATININE FOR GFR 0.58 MG/DL (0.55-1.30); GLOMERULAR FILTRATION RATE > 60.0 (>39); GLUCOSE, FASTING 93 MG/DL (70-100); MAGNESIUM LEVEL 1.7 MG/DL (1.8-2.4); POTASSIUM SERUM 4.9 MEQ/L (3.5-5.1); SODIUM LEVEL 128 MEQ/L (136-145)
[2020-04-29] MEDS: levETIRAcetam 250MG TABLET (KEPPRA) PO SCH ×2 (09:08→21:07)
[2020-04-29] MEDS: BACLOFEN 10 MG TAB PO SCH ×2 (09:09→21:09)
[2020-04-29] MEDS: CEFDINIR 300 MG CAP (OMNICEF) PO SCH ×2 (09:09→21:08)
[2020-04-29] MEDS: lisinopriL 10 MG TAB PO SCH (09:09)
[2020-04-29] MEDS: ASCORBIC ACID 500 MG TAB PO SCH (09:09)
[2020-04-29] MEDS: LABETALOL 100 MG TAB PO SCH ×2 (09:09→21:08)
[2020-04-29] MEDS: PANTOPRAZOLE 40MG TAB (PROTONIX) PO SCH (09:10)
[2020-04-29] MEDS: POTASSIUM CHLORIDE 10 MEQ SR TABLET PO SCH ×2 (09:10→21:07)
[2020-04-29] MEDS: FIBER-CON 625 MG TAB PO SCH ×2 (09:10→21:07)
[2020-04-29] MEDS: TORSEMIDE 5MG TABLET PO SCH (10:30)
[2020-04-29] MEDS: MAGNESIUM OXIDE 400 MG TAB (MAG-OX) PO SCH ×2 (10:30→21:08)
--- NOTE | 2020-04-29 13:56 | ECGEPIP ---
[facility] - ED Test Date: 2020-04-15 Pat Name: AYAKA LUCIO Department: Room: [place] [address] Gender: Female Clinical Documentation Nurse: ALIDA : 1945 Requested By: ADRIANNA ZUÑIGA Order Number: [id number] Reading MD: Nahomy Swanson Measurements Intervals [place] Rate: 79 P: 79 MO: 165 QRS: 21 QRSD: 92 T: 110 QT: 348 QTc: 400 Interpretive Statements SINUS RHYTHM ST DEVIATION AND MODERATE T-WAVE ABNORMALITY, CONSIDER LATERAL ISCHEMIA ABNORMAL ECG
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
[2020-04-29] MEDS: ATORVASTATIN 20 MG TAB PO SCH (18:02)
[2020-04-29] MEDS: RIVAROXABAN 10 MG TAB (XARELTO) PO SCH (18:02)
[2020-04-29] MEDS: OXcarbazepine 300 MG TAB PO SCH (18:02)
[2020-04-29] MEDS: LEVOTHYROXINE 25MCG TABLET (0.025MG) PO SCH (21:08)
[2020-04-30] MEDS: ACETAMINOPHEN 500 MG TAB PO SCH ×3 (05:04→21:47)
[2020-04-30] MEDS: traMADol 50 MG TAB PO PRN ×3 (05:04→21:45)
[2020-04-30 06:00] VITALS: BP 156/72
[2020-04-30 06:39] LABS: HEMATOCRIT 35.1 % (36.0-47.0); HEMOGLOBIN 11.1 g/dl (12.0-15.5); MEAN CORPUSCULAR HEMOGLOBIN 31.1 pg (27.0-33.0); MEAN CORPUSCULAR HGB CONC 31.6 g/dl (32.0-36.5); MEAN CORPUSCULAR VOLUME 98.3 fl (80.0-96.0); PLATELET COUNT, AUTOMATED 542 10^3/uL (150-450); RED BLOOD COUNT 3.57 10^6/uL (4.00-5.40); WHITE BLOOD COUNT 11.5 10^3/uL (4.0-10.0)
[2020-04-30 07:04] LABS: BLOOD UREA NITROGEN 14 MG/DL (7-18); CARBON DIOXIDE LEVEL 29 MEQ/L (21-32); CHLORIDE LEVEL 97 MEQ/L (98-107); CREATININE FOR GFR 0.76 MG/DL (0.55-1.30); GLOMERULAR FILTRATION RATE > 60.0 (>39); GLUCOSE, FASTING 97 MG/DL (70-100); POTASSIUM SERUM 4.5 MEQ/L (3.5-5.1); SODIUM LEVEL 130 MEQ/L (136-145)
[2020-04-30 07:17] LABS: EOSINOPHILS 3 % (0-3); LYMPHOCYTES 11 % (16-44); METAMYELOCYTES 2 % (0-0); MONOCYTES 4 % (0-5); MYELOCYTES 3 % (0-0); NEUTROPHILS 76 % (28-66); PLATELET ESTIMATE INCREASED (NORMAL)
[2020-04-30 07:18] LABS: ANISOCYTOSIS 1+
[2020-04-30] MEDS: POTASSIUM CHLORIDE 10 MEQ SR TABLET PO SCH ×2 (09:53→21:46)
[2020-04-30] MEDS: TORSEMIDE 5MG TABLET PO SCH (09:53)
[2020-04-30] MEDS: LABETALOL 100 MG TAB PO SCH ×2 (09:54→21:49)
[2020-04-30] MEDS: MAGNESIUM OXIDE 400 MG TAB (MAG-OX) PO SCH ×2 (09:54→21:46)
[2020-04-30] MEDS: ASCORBIC ACID 500 MG TAB PO SCH (09:55)
[2020-04-30] MEDS: PANTOPRAZOLE 40MG TAB (PROTONIX) PO SCH (09:55)
[2020-04-30] MEDS: FIBER-CON 625 MG TAB PO SCH ×2 (09:55→21:46)
[2020-04-30] MEDS: CEFDINIR 300 MG CAP (OMNICEF) PO SCH ×2 (09:55→21:45)
[2020-04-30] MEDS: lisinopriL 10 MG TAB PO SCH (09:55)
[2020-04-30] MEDS: BACLOFEN 10 MG TAB PO SCH ×2 (09:55→21:45)
[2020-04-30] MEDS: levETIRAcetam 250MG TABLET (KEPPRA) PO SCH ×2 (09:55→21:45)
[2020-04-30] MEDS: ATORVASTATIN 20 MG TAB PO SCH (17:12)
[2020-04-30] MEDS: RIVAROXABAN 10 MG TAB (XARELTO) PO SCH (17:12)
[2020-04-30] MEDS: OXcarbazepine 300 MG TAB PO SCH (17:12)
[2020-04-30] MEDS: LEVOTHYROXINE 25MCG TABLET (0.025MG) PO SCH (21:46)
[2020-05-01] MEDS: traMADol 50 MG TAB PO PRN ×3 (04:02→21:32)
[2020-05-01 06:00] VITALS: BP 154/73
[2020-05-01] MEDS: ACETAMINOPHEN 500 MG TAB PO SCH ×3 (06:02→21:33)
[2020-05-01 08:36] LABS: HEMOGLOBIN 10.8 g/dl (12.0-15.5); MEAN CORPUSCULAR HEMOGLOBIN 32.1 pg (27.0-33.0); MEAN CORPUSCULAR HGB CONC 32.7 g/dl (32.0-36.5); MEAN CORPUSCULAR VOLUME 98.2 fl (80.0-96.0); PLATELET COUNT, AUTOMATED 544 10^3/uL (150-450); RED BLOOD COUNT 3.36 10^6/uL (4.00-5.40); WHITE BLOOD COUNT 10.4 10^3/uL (4.0-10.0)
[2020-05-01 08:47] LABS: BLOOD UREA NITROGEN 12 MG/DL (7-18); CALCIUM LEVEL 8.5 MG/DL (8.8-10.2); CARBON DIOXIDE LEVEL 28 MEQ/L (21-32); CHLORIDE LEVEL 98 MEQ/L (98-107); GLOMERULAR FILTRATION RATE > 60.0 (>39); GLUCOSE, FASTING 102 MG/DL (70-100); POTASSIUM SERUM 4.7 MEQ/L (3.5-5.1); SODIUM LEVEL 132 MEQ/L (136-145)
[2020-05-01] MEDS: PANTOPRAZOLE 40MG TAB (PROTONIX) PO SCH (09:48)
[2020-05-01] MEDS: BACLOFEN 10 MG TAB PO SCH ×2 (09:48→21:33)
[2020-05-01] MEDS: POTASSIUM CHLORIDE 10 MEQ SR TABLET PO SCH ×2 (09:48→21:33)
[2020-05-01] MEDS: CEFDINIR 300 MG CAP (OMNICEF) PO SCH ×2 (09:48→21:32)
[2020-05-01] MEDS: FIBER-CON 625 MG TAB PO SCH ×2 (09:48→21:31)
[2020-05-01] MEDS: ASCORBIC ACID 500 MG TAB PO SCH (09:48)
[2020-05-01] MEDS: MAGNESIUM OXIDE 400 MG TAB (MAG-OX) PO SCH ×2 (09:48→21:32)
[2020-05-01] MEDS: levETIRAcetam 250MG TABLET (KEPPRA) PO SCH ×2 (09:48→21:33)
[2020-05-01] MEDS: TORSEMIDE 5MG TABLET PO SCH (09:49)
[2020-05-01] MEDS: lisinopriL 10 MG TAB PO SCH (09:51)
[2020-05-01] MEDS: LABETALOL 100 MG TAB PO SCH ×2 (09:52→21:36)
[2020-05-01] MEDS ORDERED: NS 500 ML IV ONE ×2 (14:15→14:30)
[2020-05-01] MEDS: OXcarbazepine 300 MG TAB PO SCH (17:36)
[2020-05-01] MEDS: ATORVASTATIN 20 MG TAB PO SCH (17:36)
[2020-05-01] MEDS: RIVAROXABAN 10 MG TAB (XARELTO) PO SCH (17:36)
[2020-05-01] MEDS: LEVOTHYROXINE 25MCG TABLET (0.025MG) PO SCH (21:31)
[2020-05-02] MEDS: ACETAMINOPHEN 500 MG TAB PO SCH ×3 (05:37→20:46)
[2020-05-02 06:00] VITALS: BP 158/73
[2020-05-02 06:37] LABS: HEMOGLOBIN 10.1 g/dl (12.0-15.5); MEAN CORPUSCULAR HEMOGLOBIN 31.8 pg (27.0-33.0); MEAN CORPUSCULAR HGB CONC 32.6 g/dl (32.0-36.5); MEAN CORPUSCULAR VOLUME 97.5 fl (80.0-96.0); PLATELET COUNT, AUTOMATED 503 10^3/uL (150-450); RED BLOOD COUNT 3.18 10^6/uL (4.00-5.40); WHITE BLOOD COUNT 8.2 10^3/uL (4.0-10.0)
[2020-05-02 06:58] LABS: BLOOD UREA NITROGEN 10 MG/DL (7-18); CARBON DIOXIDE LEVEL 29 MEQ/L (21-32); CHLORIDE LEVEL 99 MEQ/L (98-107); GLOMERULAR FILTRATION RATE > 60.0 (>39); GLUCOSE, FASTING 96 MG/DL (70-100); MAGNESIUM LEVEL 2.1 MG/DL (1.8-2.4); POTASSIUM SERUM 4.2 MEQ/L (3.5-5.1); SODIUM LEVEL 130 MEQ/L (136-145)
[2020-05-02 07:44] LABS: EOSINOPHILS 4 % (0-3); LYMPHOCYTES 24 % (16-44); METAMYELOCYTES 2 % (0-0); MONOCYTES 10 % (0-5); MYELOCYTES 2 % (0-0); NEUTROPHILS 58 % (28-66); PLATELET ESTIMATE INCREASED (NORMAL)
[2020-05-02] MEDS: TORSEMIDE 5MG TABLET PO SCH (10:17)
[2020-05-02] MEDS: ASCORBIC ACID 500 MG TAB PO SCH (10:17)
[2020-05-02] MEDS: LABETALOL 100 MG TAB PO SCH ×2 (10:18→20:51)
[2020-05-02] MEDS: FIBER-CON 625 MG TAB PO SCH ×2 (10:18→20:46)
[2020-05-02] MEDS: CEFDINIR 300 MG CAP (OMNICEF) PO SCH ×2 (10:18→20:45)
[2020-05-02] MEDS: MAGNESIUM OXIDE 400 MG TAB (MAG-OX) PO SCH ×2 (10:19→20:48)
[2020-05-02] MEDS: BACLOFEN 10 MG TAB PO SCH ×2 (10:19→20:48)
[2020-05-02] MEDS: levETIRAcetam 250MG TABLET (KEPPRA) PO SCH ×2 (10:19→20:45)
[2020-05-02] MEDS: POTASSIUM CHLORIDE 10 MEQ SR TABLET PO SCH ×2 (10:20→20:45)
[2020-05-02] MEDS: PANTOPRAZOLE 40MG TAB (PROTONIX) PO SCH (10:20)
[2020-05-02] MEDS: traMADol 50 MG TAB PO PRN ×3 (13:14→23:54)
[2020-05-02] MEDS: RIVAROXABAN 10 MG TAB (XARELTO) PO SCH (17:32)
[2020-05-02] MEDS: ATORVASTATIN 20 MG TAB PO SCH (17:32)
[2020-05-02] MEDS: OXcarbazepine 300 MG TAB PO SCH (17:32)
[2020-05-02] MEDS: LEVOTHYROXINE 25MCG TABLET (0.025MG) PO SCH (20:48)
[2020-05-03 05:45] LABS: BASO # 0.1 10^3/uL (0.0-0.2); BASO % 0.7 % (0.0-1.0); EOS # 0.4 10^3/uL (0.0-0.5); EOS % 4.2 % (0.0-3.0); HEMATOCRIT 33.7 % (36.0-47.0); HEMOGLOBIN 10.7 g/dl (12.0-15.5); LYMPH # 1.7 10^3/uL (1.5-5.0); LYMPH % 20.1 % (24.0-44.0); MEAN CORPUSCULAR HEMOGLOBIN 30.4 pg (27.0-33.0); MEAN CORPUSCULAR HGB CONC 31.8 g/dl (32.0-36.5); MEAN CORPUSCULAR VOLUME 95.7 fl (80.0-96.0); MONO # 0.8 10^3/uL (0.0-0.8); MONO % 8.8 % (0.0-5.0); NEUTROPHILS # 5.5 10^3/uL (1.5-8.5); NEUTROPHILS % 63.8 % (36.0-66.0); PLATELET COUNT, AUTOMATED 526 10^3/uL (150-450); RED BLOOD COUNT 3.52 10^6/uL (4.00-5.40); WHITE BLOOD COUNT 8.6 10^3/uL (4.0-10.0)
[2020-05-03 05:54] VITALS: BP 156/81
[2020-05-03] MEDS: ACETAMINOPHEN 500 MG TAB PO SCH ×3 (05:58→20:50)
[2020-05-03 06:01] LABS: BLOOD UREA NITROGEN 9 MG/DL (7-18); CALCIUM LEVEL 9.5 MG/DL (8.8-10.2); CARBON DIOXIDE LEVEL 31 MEQ/L (21-32); CHLORIDE LEVEL 100 MEQ/L (98-107); CREATININE FOR GFR 0.68 MG/DL (0.55-1.30); GLOMERULAR FILTRATION RATE > 60.0 (>39); GLUCOSE, FASTING 98 MG/DL (70-100); MAGNESIUM LEVEL 2.2 MG/DL (1.8-2.4); POTASSIUM SERUM 3.9 MEQ/L (3.5-5.1); SODIUM LEVEL 133 MEQ/L (136-145)
[2020-05-03] MEDS: CEFDINIR 300 MG CAP (OMNICEF) PO SCH ×2 (08:52→20:49)
[2020-05-03] MEDS: POTASSIUM CHLORIDE 10 MEQ SR TABLET PO SCH ×2 (08:52→20:49)
[2020-05-03] MEDS: LABETALOL 100 MG TAB PO SCH ×2 (08:54→20:48)
[2020-05-03] MEDS: FIBER-CON 625 MG TAB PO SCH ×2 (08:55→20:49)
[2020-05-03] MEDS: TORSEMIDE 5MG TABLET PO SCH (08:55)
[2020-05-03] MEDS: ASCORBIC ACID 500 MG TAB PO SCH (08:55)
[2020-05-03] MEDS: PANTOPRAZOLE 40MG TAB (PROTONIX) PO SCH (08:55)
[2020-05-03] MEDS: levETIRAcetam 250MG TABLET (KEPPRA) PO SCH ×2 (08:55→20:49)
[2020-05-03] MEDS: MAGNESIUM OXIDE 400 MG TAB (MAG-OX) PO SCH ×2 (08:55→20:49)
[2020-05-03] MEDS: BACLOFEN 10 MG TAB PO SCH ×2 (08:55→20:49)
[2020-05-03] MEDS: traMADol 50 MG TAB PO PRN ×3 (08:56→18:06)
[2020-05-03 09:00] VITALS: BP 153/80
[2020-05-03] MEDS: RIVAROXABAN 10 MG TAB (XARELTO) PO SCH (18:06)
[2020-05-03] MEDS: OXcarbazepine 300 MG TAB PO SCH (18:06)
[2020-05-03] MEDS: ATORVASTATIN 20 MG TAB PO SCH (18:06)
[2020-05-03] MEDS: LEVOTHYROXINE 25MCG TABLET (0.025MG) PO SCH (20:50)
[2020-05-04] MEDS: ACETAMINOPHEN 500 MG TAB PO SCH ×3 (05:36→21:16)
[2020-05-04] MEDS: traMADol 50 MG TAB PO PRN ×3 (05:36→21:15)
[2020-05-04 07:13] LABS: BASO # 0.1 10^3/uL (0.0-0.2); BASO % 0.7 % (0.0-1.0); EOS # 0.3 10^3/uL (0.0-0.5); EOS % 4.6 % (0.0-3.0); HEMATOCRIT 35.5 % (36.0-47.0); HEMOGLOBIN 11.6 g/dl (12.0-15.5); LYMPH # 1.4 10^3/uL (1.5-5.0); LYMPH % 19.5 % (24.0-44.0); MEAN CORPUSCULAR HEMOGLOBIN 31.7 pg (27.0-33.0); MEAN CORPUSCULAR HGB CONC 32.7 g/dl (32.0-36.5); MONO # 0.7 10^3/uL (0.0-0.8); MONO % 10.5 % (0.0-5.0); NEUTROPHILS # 4.4 10^3/uL (1.5-8.5); NEUTROPHILS % 63.1 % (36.0-66.0); PLATELET COUNT, AUTOMATED 480 10^3/uL (150-450); RED BLOOD COUNT 3.66 10^6/uL (4.00-5.40)
[2020-05-04 07:29] LABS: BLOOD UREA NITROGEN 9 MG/DL (7-18); CALCIUM LEVEL 9.4 MG/DL (8.8-10.2); CARBON DIOXIDE LEVEL 30 MEQ/L (21-32); CHLORIDE LEVEL 99 MEQ/L (98-107); CREATININE FOR GFR 0.69 MG/DL (0.55-1.30); GLOMERULAR FILTRATION RATE > 60.0 (>39); GLUCOSE, FASTING 91 MG/DL (70-100); MAGNESIUM LEVEL 2.3 MG/DL (1.8-2.4); POTASSIUM SERUM 4.5 MEQ/L (3.5-5.1); SODIUM LEVEL 134 MEQ/L (136-145)
[2020-05-04] MEDS: MAGNESIUM OXIDE 400 MG TAB (MAG-OX) PO SCH ×2 (08:51→21:16)
[2020-05-04] MEDS: ASCORBIC ACID 500 MG TAB PO SCH (08:52)
[2020-05-04] MEDS: levETIRAcetam 250MG TABLET (KEPPRA) PO SCH ×2 (08:52→21:17)
[2020-05-04] MEDS: PANTOPRAZOLE 40MG TAB (PROTONIX) PO SCH (08:52)
[2020-05-04] MEDS: BACLOFEN 10 MG TAB PO SCH ×2 (08:52→21:17)
[2020-05-04] MEDS: CEFDINIR 300 MG CAP (OMNICEF) PO SCH ×2 (08:52→21:17)
[2020-05-04] MEDS: POTASSIUM CHLORIDE 10 MEQ SR TABLET PO SCH ×2 (08:53→21:17)
[2020-05-04] MEDS: LABETALOL 100 MG TAB PO SCH ×2 (08:53→21:17)
[2020-05-04] MEDS: FIBER-CON 625 MG TAB PO SCH ×2 (08:53→21:16)
[2020-05-04] MEDS: TORSEMIDE 5MG TABLET PO SCH (08:54)
[2020-05-04 08:58] VITALS: BP 152/75
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
[2020-05-04] MEDS: OXcarbazepine 300 MG TAB PO SCH (17:51)
[2020-05-04] MEDS: RIVAROXABAN 10 MG TAB (XARELTO) PO SCH (17:51)
[2020-05-04] MEDS: ATORVASTATIN 20 MG TAB PO SCH (17:51)
[2020-05-04] MEDS: LEVOTHYROXINE 25MCG TABLET (0.025MG) PO SCH (21:17)
[2020-05-05 06:00] VITALS: BP 153/75
[2020-05-05] MEDS: ACETAMINOPHEN 500 MG TAB PO SCH (06:42)
[2020-05-05 06:45] LABS: BASO # 0.1 10^3/uL (0.0-0.2); BASO % 0.7 % (0.0-1.0); EOS # 0.3 10^3/uL (0.0-0.5); EOS % 4.5 % (0.0-3.0); HEMATOCRIT 33.9 % (36.0-47.0); HEMOGLOBIN 11.1 g/dl (12.0-15.5); LYMPH # 1.6 10^3/uL (1.5-5.0); LYMPH % 21.7 % (24.0-44.0); MEAN CORPUSCULAR HEMOGLOBIN 31.9 pg (27.0-33.0); MEAN CORPUSCULAR HGB CONC 32.7 g/dl (32.0-36.5); MEAN CORPUSCULAR VOLUME 97.4 fl (80.0-96.0); MONO # 0.8 10^3/uL (0.0-0.8); MONO % 10.1 % (0.0-5.0); NEUTROPHILS # 4.7 10^3/uL (1.5-8.5); NEUTROPHILS % 61.9 % (36.0-66.0); PLATELET COUNT, AUTOMATED 434 10^3/uL (150-450); RED BLOOD COUNT 3.48 10^6/uL (4.00-5.40); WHITE BLOOD COUNT 7.5 10^3/uL (4.0-10.0)
[2020-05-05 07:11] LABS: BLOOD UREA NITROGEN 10 MG/DL (7-18); CALCIUM LEVEL 8.9 MG/DL (8.8-10.2); CARBON DIOXIDE LEVEL 25 MEQ/L (21-32); CHLORIDE LEVEL 103 MEQ/L (98-107); CREATININE FOR GFR 0.66 MG/DL (0.55-1.30); GLOMERULAR FILTRATION RATE > 60.0 (>39); GLUCOSE, FASTING 88 MG/DL (70-100); MAGNESIUM LEVEL 2.3 MG/DL (1.8-2.4); POTASSIUM SERUM 4.5 MEQ/L (3.5-5.1); SODIUM LEVEL 133 MEQ/L (136-145)
[2020-05-05] MEDS: CEFDINIR 300 MG CAP (OMNICEF) PO SCH (08:47)
[2020-05-05] MEDS: FIBER-CON 625 MG TAB PO SCH (08:47)
[2020-05-05] MEDS: levETIRAcetam 250MG TABLET (KEPPRA) PO SCH (08:47)
[2020-05-05] MEDS: BACLOFEN 10 MG TAB PO SCH (08:47)
[2020-05-05] MEDS: POTASSIUM CHLORIDE 10 MEQ SR TABLET PO SCH (08:47)
[2020-05-05 08:48] VITALS: BP 153/75
[2020-05-05] MEDS: LABETALOL 100 MG TAB PO SCH (08:48)
[2020-05-05] MEDS: MAGNESIUM OXIDE 400 MG TAB (MAG-OX) PO SCH (08:48)
[2020-05-05] MEDS: PANTOPRAZOLE 40MG TAB (PROTONIX) PO SCH (08:48)
[2020-05-05] MEDS: ASCORBIC ACID 500 MG TAB PO SCH (08:48)
[2020-05-05] MEDS: traMADol 50 MG TAB PO PRN (08:49)
[2020-05-05] MEDS: TORSEMIDE 5MG TABLET PO SCH (08:49)
[2020-05-05] MEDS ORDERED: CEFD1CAP8 PO (10:45)
[2020-05-05] MEDS ORDERED: LABE10TAB PO (10:45)
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
[2020-05-07] MEDS ORDERED: TRAM50TA2 PO (12:59)
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
--- NOTE | 2020-05-29 17:51 | IPN ---
DATE: 04/17/2020 The patient overall was stable overnight. She is still having a fair bit of pain. We gave her some medication this morning and I am hoping that is going to work a little bit better for her, although she may be better off with a patient controlled analgesia (ELECTRICAL TECH/PROJECT MANAGER) after her operative intervention. Also, the question obviously is whether an epidural would be beneficial for her given her significant pelvic fracture as well as the sacral fracture and the right leg pain. Unfortunately, with her Plavix this will have to be determined by anesthesia later on this morning and we will see what they recommend/determine. From a standpoint of overall general surgical issues, no new issues at this time. Her white count has been stable, however she did have a little bit of a low grade temperature, it came back down last night, but it is 99.8 this morning, it may be associated with the inflammatory process that is going on, also she may develop some atelectasis/pulmonary issues if we are not able to get her mobilized too soon. In any case, at this point supportive care is warranted. Medicine has been taking care of the majority of her issues and surgically there is no new issues. When the patient goes to the operating room later on today, we will see if we cannot transfer the care over to the medicine/hospitalist group and we would appreciate it if the orthopaedic and medicine group co-manage her issues. YAMILET
[2020-06-29] MEDS ORDERED: PLAV1TAB2 PO (14:56)
== END 2020-05-05 14:15 | disposition home health service (06) | DRG 309 ==
LOC: M ED 16:13 → EDBD 16:13 → M ED INP 22:18 → ENRESERV 23:14 → M MSPAV 04-16 04:22 → M MS5PR 04-16 16:30
PROVIDERS: ADMIT Surgery; ATTEND Internal Medicine
PROC: 0QS604Z Reposition Right Upper Femur with Internal Fixation Device, Open Approach (ICD-10-PCS; principal; 2020-04-17 11:00)
DX: S32.111A Minimally displaced Zone I fracture of sacrum, initial encounter for closed fracture (principal); S72.141A Displaced intertrochanteric fracture of right femur, initial encounter for closed fracture; E87.1 Hypo-osmolality and hyponatremia; Z94.0 Kidney transplant status; S72.21XA Displaced subtrochanteric fracture of right femur, initial encounter for closed fracture; N18.3 Chronic kidney disease, stage 3 (moderate); N39.0 Urinary tract infection, site not specified; J44.9 Chronic obstructive pulmonary disease, unspecified; G40.909 Epilepsy, unspecified, not intractable, without status epilepticus; M06.9 Rheumatoid arthritis, unspecified; B96.29 Other Escherichia coli [E. coli] as the cause of diseases classified elsewhere; I25.10 Atherosclerotic heart disease of native coronary artery without angina pectoris; E03.9 Hypothyroidism, unspecified; I12.9 Hypertensive chronic kidney disease with stage 1 through stage 4 chronic kidney disease, or unspecified chronic kidney disease; I95.1 Orthostatic hypotension; Z85.038 Personal history of other malignant neoplasm of large intestine; Z95.2 Presence of prosthetic heart valve; Z86.73 Personal history of transient ischemic attack (TIA), and cerebral infarction without residual deficits; F31.9 Bipolar disorder, unspecified; M79.7 Fibromyalgia; M16.11 Unilateral primary osteoarthritis, right hip; Z79.899 Other long term (current) drug therapy; Z88.8 Allergy status to other drugs, medicaments and biological substances; Z91.018 Allergy to other foods; Z88.7 Allergy status to serum and vaccine; Z91.041 Radiographic dye allergy status; V03.19XA Pedestrian with other conveyance injured in collision with car, pick-up truck or van in traffic accident, initial encounter; Y92.9 Unspecified place or not applicable; M67.351 Transient synovitis, right hip; N28.89 Other specified disorders of kidney and ureter; R19.7 Diarrhea, unspecified

== ENCOUNTER → 2020-07-20 | Outpatient (REF) | payer MEDICARE, MEDICAID ==
[~2020-07-20] MED LIST changes: +CEFD1CAP8 PO; +D-40TAB2 PO; +DOCU100C16 PO; +FERR325T3 PO; +FIBE625T PO; +KLOR10TA76 PO; +LABE100T4 PO; -LABE10TAB PO; +PLAV1TAB2 PO; +POTA99TA10 PO; +TRAM50TA2 PO; +XARE10TA PO
[2020-07-20 12:35] LABS: BASO % 0.4 % (0.0-1.0); EOS # 0.2 10^3/uL (0.0-0.5); EOS % 3.4 % (0.0-3.0); HEMOGLOBIN 11.8 g/dl (12.0-15.5); LYMPH # 1.2 10^3/uL (1.5-5.0); LYMPH % 21.7 % (24.0-44.0); MEAN CORPUSCULAR HEMOGLOBIN 32.4 pg (27.0-33.0); MEAN CORPUSCULAR HGB CONC 32.8 g/dl (32.0-36.5); MEAN CORPUSCULAR VOLUME 98.9 fl (80.0-96.0); MONO # 0.5 10^3/uL (0.0-0.8); MONO % 8.5 % (0.0-5.0); NEUTROPHILS # 3.7 10^3/uL (1.5-8.5); NEUTROPHILS % 65.8 % (36.0-66.0); PLATELET COUNT, AUTOMATED 269 10^3/uL (150-450); RED BLOOD COUNT 3.64 10^6/uL (4.00-5.40); WHITE BLOOD COUNT 5.7 10^3/uL (4.0-10.0)
[2020-07-20 13:07] LABS: ALBUMIN 3.7 GM/DL (3.2-5.2); ALT/SGPT 17 U/L (12-78); BILIRUBIN,TOTAL 0.4 MG/DL (0.2-1.0); BLOOD UREA NITROGEN 6 MG/DL (7-18); CALCIUM LEVEL 9.3 MG/DL (8.8-10.2); CARBON DIOXIDE LEVEL 28 MEQ/L (21-32); CHLORIDE LEVEL 99 MEQ/L (98-107); CREATININE FOR GFR 0.79 MG/DL (0.55-1.30); FERRITIN 137 NG/ML (8-252); FREE T4 0.83 NG/DL (0.76-1.46); GLOMERULAR FILTRATION RATE > 60.0 (>39); GLUCOSE, FASTING 88 MG/DL (70-100); IRON (FE) 87 UG/DL (50-170); PERCENT SATURATION 29.2 % (13.2-45.0); POTASSIUM SERUM 4.1 MEQ/L (3.5-5.1); SODIUM LEVEL 134 MEQ/L (136-145); TOTAL IRON BINDING CAPACITY 298 UG/DL (250-450); TOTAL PROTEIN 6.8 GM/DL (6.4-8.2)
[2020-07-20 13:09] LABS: TOTAL 25(OH) VITAMIN D 64.7 NG/ML (30.0-100.0)
== END ==
LOC: M LAB REF 11:50
PROVIDERS: ATTEND Physician Assistant
DX: D50.9 Iron deficiency anemia, unspecified (principal); E87.1 Hypo-osmolality and hyponatremia; E03.9 Hypothyroidism, unspecified; E55.9 Vitamin D deficiency, unspecified; Z79.899 Other long term (current) drug therapy

== ENCOUNTER → 2021-01-11 | Outpatient (CLI) | payer OTHER, MEDICAID ==
[~2021-01-11] MED LIST changes: -LISI-538 PO; +LISI10TA22 PO; +LISI20TA33 PO
[2021-01-11 12:57] LABS: ALBUMIN 3.8 GM/DL (3.2-5.2); ALT/SGPT 19 U/L (12-78); BILIRUBIN,TOTAL 0.3 MG/DL (0.2-1.0); BLOOD UREA NITROGEN 13 MG/DL (7-18); CALCIUM LEVEL 8.9 MG/DL (8.8-10.2); CARBON DIOXIDE LEVEL 27 MEQ/L (21-32); CHLORIDE LEVEL 96 MEQ/L (98-107); CHOLESTEROL LEVEL 179 MG/DL (<200); CHOLESTEROL RISK RATIO 2.324 (<5); CREATININE FOR GFR 0.92 MG/DL (0.55-1.30); GLOMERULAR FILTRATION RATE > 60.0 (>39); GLUCOSE, FASTING 106 MG/DL (70-100); HDL CHOLESTEROL 77 MG/DL (>40); LDL CHOLESTEROL 78 MG/DL (<100); NON-HDL-C 102 MG/DL; POTASSIUM SERUM 4.4 MEQ/L (3.5-5.1); SODIUM LEVEL 130 MEQ/L (136-145); TOTAL PROTEIN 6.8 GM/DL (6.4-8.2); TRIGLYCERIDES LEVEL 122 MG/DL (<150)
== END ==
LOC: M LAB 11:34
PROVIDERS: ATTEND Physician Assistant
DX: E78.00 Pure hypercholesterolemia, unspecified (principal)

== ENCOUNTER → 2021-01-20 | Outpatient (CLI) | payer OTHER, MEDICAID ==
--- NOTE | 2021-01-20 15:46 | REP ---
INDICATION: Assess stenosis TECHNIQUE: Carotid ultrasonography was performed bilaterally FINDINGS: Right: CCA systolic: 62.8 centimeters/second CCA diastolic: 12.7 centimeters/second ICA systolic: 91.3 centimeters/second ICA diastolic: 25.5 centimeters/second ICA CCA ratio: 1.45 Left: CCA systolic: 62.7 centimeters/second CCA diastolic: 16.1 centimeters/second ICA systolic: 82.1 centimeters/second ICA diastolic: 21.6 centimeters/second ICA CCA ratio: 1.30 Vertebral artery: Right: Antegrade flow left: Antegrade flow There is echogenic material seen along the carotid arterial meade some of which casts and acoustic shadow consistent with calcific deposition. IMPRESSION: According to the SRU criteria there is less than 50% stenosis of the internal carotid artery bilaterally. <Electronically signed by Huang Mays > 01/20/21 [id number]
== END ==
LOC: M RAD 14:41
PROVIDERS: ATTEND Physician Assistant
DX: R55 Syncope and collapse (principal)

== ENCOUNTER → 2021-03-19 | Outpatient (REF) | payer OTHER, MEDICAID | LOC: M LAB REF 17:53 | PROVIDERS: ATTEND Internal Medicine Nephrology | DX: N18.31 Chronic kidney disease, stage 3a (principal) ==

== ENCOUNTER → 2021-06-07 | Outpatient (CLI) | payer OTHER, MEDICAID ==
[~2021-06-07] MED LIST changes: -KLOR10TA76 PO; +POTA-136 PO
== END ==
LOC: M LAB 12:11
PROVIDERS: ATTEND Physician Assistant Medical
DX: R56.9 Unspecified convulsions (principal)

== ENCOUNTER → 2021-08-16 | Outpatient (REF) | payer OTHER, MEDICAID, MEDICARE ==
[~2021-08-16] MED LIST changes: -CEFD1CAP8 PO; +CEFD300C41 PO; +GNP99TAB3 PO; -HALO5TA PO; +HALO5TAB33 PO; +LEVE500T5 PO; +MELO7.5T35 PO; -SM P99TA PO
== END ==
LOC: M LAB REF 17:37
PROVIDERS: ATTEND Nurse Practitioner Family
DX: N18.31 Chronic kidney disease, stage 3a (principal)

== ENCOUNTER → 2021-12-17 | Outpatient (CLI) | payer OTHER, MEDICAID ==
[~2021-12-17] MED LIST changes: +LOPE-27 PO
== END ==
LOC: M LABSMTC 09:58
PROVIDERS: ATTEND Anesthesiology
DX: Z01.812 Encounter for preprocedural laboratory examination (principal); Z20.822 Contact with and (suspected) exposure to COVID-19

== ENCOUNTER 2021-12-18 10:28 | Emergency (ER) | payer OTHER, MEDICAID ==
[~2021-12-18] VITALS: Ht 162.6 cm; Wt 67.7 kg
[2021-12-18] MEDS ORDERED: NORCO, ANEXSIA 5/325MG TABLET (HYDROcodone/ACETAMINOPHEN) PO ONE (11:20)
[2021-12-18 13:34] VITALS: BP 138/80
== END 2021-12-18 14:10 | disposition home or self-care (01) ==
LOC: M ED 10:28 → EDBD 10:28 → M ED 14:10
DX: S30.0XXA Contusion of lower back and pelvis, initial encounter (principal); W17.89XA Other fall from one level to another, initial encounter; K21.9 Gastro-esophageal reflux disease without esophagitis; N18.30 Chronic kidney disease, stage 3 unspecified; I10 Essential (primary) hypertension; F32.A Depression, unspecified; Z86.79 Personal history of other diseases of the circulatory system; Z99.89 Dependence on other enabling machines and devices; Y92.009 Unspecified place in unspecified non-institutional (private) residence as the place of occurrence of the external cause; Y93.9 Activity, unspecified; Y99.9 Unspecified external cause status; Z91.041 Radiographic dye allergy status; Z91.048 Other nonmedicinal substance allergy status; Z88.7 Allergy status to serum and vaccine; Z79.811 Long term (current) use of aromatase inhibitors; Z79.899 Other long term (current) drug therapy

== ENCOUNTER → 2022-03-14 | Outpatient (CLI) | payer OTHER, MEDICAID ==
[2022-03-14 14:37] LABS: BASO % 0.4 % (0.0-1.0); EOS # 0.2 10^3/uL (0.0-0.5); EOS % 3.6 % (0.0-3.0); HEMATOCRIT 34.1 % (36.0-47.0); HEMOGLOBIN 11.2 g/dl (12.0-15.5); LYMPH # 1.3 10^3/uL (1.5-5.0); LYMPH % 24.9 % (24.0-44.0); MEAN CORPUSCULAR HEMOGLOBIN 31.9 pg (27.0-33.0); MEAN CORPUSCULAR HGB CONC 32.8 g/dl (32.0-36.5); MEAN CORPUSCULAR VOLUME 97.2 fl (80.0-96.0); MONO # 0.5 10^3/uL (0.0-0.8); MONO % 9.6 % (2.0-8.0); NEUTROPHILS # 3.1 10^3/uL (1.5-8.5); NEUTROPHILS % 61.3 % (36.0-66.0); PLATELET COUNT, AUTOMATED 288 10^3/uL (150-450); RED BLOOD COUNT 3.51 10^6/uL (4.00-5.40)
[2022-03-14 16:47] LABS: BILIRUBIN,TOTAL 0.3 MG/DL (0.2-1.0); CALCIUM LEVEL 9.3 MG/DL (8.8-10.2); CREATININE FOR GFR 0.97 MG/DL (0.55-1.30); GLOMERULAR FILTRATION RATE 59.3 (>39); POTASSIUM SERUM 4.3 MEQ/L (3.5-5.1); TOTAL PROTEIN 6.9 GM/DL (6.4-8.2)
[2022-03-14 16:48] LABS: ALBUMIN 3.9 GM/DL (3.2-5.2)
== END ==
LOC: M LAB 13:47
PROVIDERS: ATTEND Psychiatry & Neurology Neurology
DX: G40.89 Other seizures (principal)